=== PATIENT | female | born 1965 | race Caucasian/White ===

== ENCOUNTER → 2016-06-22 | Outpatient (CLI) | payer OTHER ==
[2016-06-22 08:14] LABS: BASO # 0.1 K/mm3 (0.0-0.2); BASO % 0.5 % (0.0-1.0); EOS # 0.2 K/mm3 (0.0-0.50); EOS % 1.5 % (0.0-3.0); LARGE UNSTAINED CELL # 0.3 K/mm3 (0.0-0.4); LARGE UNSTAINED CELL % 1.9 % (0.0-4.0); LYMPH # 4.2 K/mm3 (1.5-4.5); LYMPH % 30.5 % (24.0-44.0); MEAN CORPUSCULAR HEMOGLOBIN 30.6 pg (27.0-33.0); MEAN CORPUSCULAR HGB CONC 33.5 g/dl (32.0-36.5); MEAN CORPUSCULAR VOLUME 91.4 fl (80.0-96.0); MONO # 0.6 K/mm3 (0.0-0.8); MONO % 4.8 % (0.0-5.0); NEUTROPHILS # 7.9 K/mm3 (1.8-7.7); NEUTROPHILS % 60.8 % (36.0-66.0); PLATELET COUNT, AUTOMATED 425 k/mm3 (150-450); RED CELL DISTRIBUTION WIDTH 12.5 % (11.5-14.5)
[2016-06-22 08:51] LABS: ALBUMIN 3.9 GM/DL (3.2-5.2); ALBUMIN/GLOBULIN RATIO 1.18 (1.00-1.93); ALKALINE PHOSPHATASE 92 U/L (45-117); ALT/SGPT 52 U/L (12-78); ANION GAP 10 MEQ/L (8-16); AST/SGOT 19 U/L (15-37); BILIRUBIN,TOTAL 0.5 MG/DL (0.2-1.0); BLOOD UREA NITROGEN 17 MG/DL (7-18); CALCIUM LEVEL 9.1 MG/DL (8.5-10.1); CARBON DIOXIDE LEVEL 30 MEQ/L (21-32); CHLORIDE LEVEL 99 MEQ/L (98-107); CHOLESTEROL LEVEL 151 MG/DL (<200); CREATININE FOR GFR 0.84 MG/DL (0.55-1.02); DIGOXIN LEVEL 0.9 NG/ML (0.5-2.0); FREE T4 1.24 NG/DL (0.76-1.46); GLOMERULAR FILTRATION RATE > 60.0 (>51); GLUCOSE, FASTING 126 MG/DL (70-105); MAGNESIUM LEVEL 2.1 MG/DL (1.8-2.4); POTASSIUM SERUM 3.5 MEQ/L (3.5-5.1); SODIUM LEVEL 139 MEQ/L (136-145); TOTAL PROTEIN 7.2 GM/DL (6.4-8.2); TRIGLYCERIDES LEVEL 216 MG/DL (<150)
== END ==
LOC: M LAB 07:39
PROVIDERS: ATTEND Family Medicine
DX: E78.4 Other hyperlipidemia (principal); I48.0 Paroxysmal atrial fibrillation; N39.0 Urinary tract infection, site not specified

== ENCOUNTER → 2017-07-13 | Outpatient (CLI) | payer BC ==
[2017-07-13 03:22] LABS: HEMATOCRIT 41.2 % (36.0-47.0); HEMOGLOBIN 13.9 g/dl (12.0-15.5); MEAN CORPUSCULAR HEMOGLOBIN 30.5 pg (27.0-33.0); MEAN CORPUSCULAR HGB CONC 33.7 g/dl (32.0-36.5); MEAN CORPUSCULAR VOLUME 90.4 fl (80.0-96.0); PLATELET COUNT, AUTOMATED 484 10^3/uL (150-450); RED BLOOD COUNT 4.56 10^6/uL (4.00-5.40); RED CELL DISTRIBUTION WIDTH 12.6 % (11.5-14.5)
[2017-07-13 03:25] LABS: ADD MANUAL DIFFER YES; DIFF SLIDE NUMBER 87; POSITIVE DIFF POS FLAG; WHITE BLOOD COUNT 16.4 10^3/uL (4.0-10.0)
[2017-07-13 04:10] LABS: ATYPICAL LYMPH 4 % (0-5); EOSINOPHILS 2 % (0-5); LYMPHOCYTES 32 % (16-52); MONOCYTES 7 % (0-8); NEUTROPHILS 55 % (35-75); PLATELET ESTIMATE INCREASED (NORMAL)
[2017-07-13 04:17] LABS: ALBUMIN/GLOBULIN RATIO 1.11 (1.00-1.93); ALKALINE PHOSPHATASE 89 U/L (45-117); ALT/SGPT 57 U/L (12-78); ANION GAP 8 MEQ/L (8-16); AST/SGOT 28 U/L (7-37); BILIRUBIN,TOTAL 0.4 MG/DL (0.2-1.0); BLOOD UREA NITROGEN 18 MG/DL (7-18); CALCIUM LEVEL 9.4 MG/DL (8.5-10.1); CARBON DIOXIDE LEVEL 31 MEQ/L (21-32); CHLORIDE LEVEL 102 MEQ/L (98-107); CHOLESTEROL LEVEL 131 MG/DL (<200); CHOLESTEROL RISK RATIO 3.742 (<5); CREATININE FOR GFR 0.85 MG/DL (0.55-1.30); FREE T4 1.18 NG/DL (0.76-1.46); GLOMERULAR FILTRATION RATE > 60.0 (>51); GLUCOSE, FASTING 117 MG/DL (70-100); HDL CHOLESTEROL 35 MG/DL (>40); LDL CHOLESTEROL 66.2 MG/DL (<100); NON-HDL-C 96 MG/DL; POTASSIUM SERUM 3.5 MEQ/L (3.5-5.1); SODIUM LEVEL 141 MEQ/L (136-145); TOTAL PROTEIN 7.6 GM/DL (6.4-8.2); TRIGLYCERIDES LEVEL 149 MG/DL (<150)
== END ==
LOC: M LAB 01:40
DX: I11.9 Hypertensive heart disease without heart failure (principal)
CPT/HCPCS: 84443

== ENCOUNTER → 2018-07-10 | Outpatient (CLI) | payer BC ==
[2018-07-10 12:06] LABS: BASO # 0.1 10^3/uL (0.0-0.2); BASO % 0.5 % (0.0-1.0); EOS # 0.3 10^3/uL (0.0-0.50); EOS % 2.3 % (0.0-3.0); HEMATOCRIT 40.9 % (36.0-47.0); HEMOGLOBIN 13.5 g/dl (12.0-15.5); LYMPH # 3.9 10^3/uL (1.5-4.5); LYMPH % 29.3 % (24.0-44.0); MEAN CORPUSCULAR HEMOGLOBIN 30.3 pg (27.0-33.0); MEAN CORPUSCULAR VOLUME 91.9 fl (80.0-96.0); MONO # 0.8 10^3/uL (0.0-0.8); MONO % 5.6 % (0.0-5.0); NEUTROPHILS # 8.3 10^3/uL (1.8-7.7); NEUTROPHILS % 61.9 % (36.0-66.0); PLATELET COUNT, AUTOMATED 462 10^3/uL (150-450); RED BLOOD COUNT 4.45 10^6/uL (4.00-5.40); WHITE BLOOD COUNT 13.3 10^3/uL (4.0-10.0)
[2018-07-10 12:44] LABS: ALBUMIN 3.6 GM/DL (3.2-5.2); ALT/SGPT 48 U/L (12-78); BILIRUBIN,TOTAL 0.4 MG/DL (0.2-1.0); BLOOD UREA NITROGEN 15 MG/DL (7-18); CALCIUM LEVEL 9.1 MG/DL (8.5-10.1); CARBON DIOXIDE LEVEL 33 MEQ/L (21-32); CHLORIDE LEVEL 102 MEQ/L (98-107); CHOLESTEROL LEVEL 138 MG/DL (<200); CHOLESTEROL RISK RATIO 3.729 (<5); FREE T4 1.18 NG/DL (0.76-1.46); GLOMERULAR FILTRATION RATE > 60.0 (>51); GLUCOSE, FASTING 119 MG/DL (70-100); HDL CHOLESTEROL 37 MG/DL (>40); LDL CHOLESTEROL 62 MG/DL (<100); NON-HDL-C 101 MG/DL; SODIUM LEVEL 140 MEQ/L (136-145); TOTAL PROTEIN 7.2 GM/DL (6.4-8.2); TRIGLYCERIDES LEVEL 196 MG/DL (<150)
[2018-07-10 12:46] LABS: TOTAL 25(OH) VITAMIN D 37.1 NG/ML (30.0-100.0)
[2018-07-10 14:34] LABS: HEMOGLOBIN A1c 7.1 %
== END ==
LOC: M LAB 11:34
PROVIDERS: ATTEND Family Medicine
DX: E03.9 Hypothyroidism, unspecified (principal); E78.49 Other hyperlipidemia; E55.9 Vitamin D deficiency, unspecified

== ENCOUNTER → 2019-08-24 | Outpatient (CLI) | payer BC ==
[2019-08-24 06:45] LABS: BASO # 0.1 10^3/uL (0.0-0.2); BASO % 0.6 % (0.0-1.0); EOS # 0.2 10^3/uL (0.0-0.5); EOS % 1.9 % (0.0-3.0); HEMATOCRIT 40.9 % (36.0-47.0); HEMOGLOBIN 13.4 g/dl (12.0-15.5); LYMPH # 4.2 10^3/uL (1.5-5.0); LYMPH % 34.2 % (24.0-44.0); MEAN CORPUSCULAR HEMOGLOBIN 30.2 pg (27.0-33.0); MEAN CORPUSCULAR HGB CONC 32.8 g/dl (32.0-36.5); MEAN CORPUSCULAR VOLUME 92.1 fl (80.0-96.0); MONO # 0.9 10^3/uL (0.0-0.8); MONO % 6.8 % (0.0-5.0); NEUTROPHILS % 56.2 % (36.0-66.0); PLATELET COUNT, AUTOMATED 415 10^3/uL (150-450); RED BLOOD COUNT 4.44 10^6/uL (4.00-5.40); WHITE BLOOD COUNT 12.4 10^3/uL (4.0-10.0)
[2019-08-24 07:12] LABS: HEMOGLOBIN A1c 6.1 %
[2019-08-24 07:25] LABS: ALBUMIN 4.2 GM/DL (3.2-5.2); ALT/SGPT 45 U/L (12-78); BILIRUBIN,TOTAL 0.5 MG/DL (0.2-1.0); BLOOD UREA NITROGEN 16 MG/DL (7-18); CALCIUM LEVEL 9.5 MG/DL (8.5-10.1); CARBON DIOXIDE LEVEL 29 MEQ/L (21-32); CHLORIDE LEVEL 102 MEQ/L (98-107); CHOLESTEROL LEVEL 132 MG/DL (<200); CREATININE FOR GFR 0.76 MG/DL (0.55-1.30); FREE T4 1.18 NG/DL (0.76-1.46); GLOMERULAR FILTRATION RATE > 60.0 (>51); GLUCOSE, FASTING 87 MG/DL (70-100); HDL CHOLESTEROL 48 MG/DL (>40); LDL CHOLESTEROL 65 MG/DL (<100); NON-HDL-C 84 MG/DL; POTASSIUM SERUM 4.1 MEQ/L (3.5-5.1); SODIUM LEVEL 137 MEQ/L (136-145); TOTAL PROTEIN 7.4 GM/DL (6.4-8.2); TRIGLYCERIDES LEVEL 94 MG/DL (<150)
[2019-08-24 10:36] LABS: TOTAL 25(OH) VITAMIN D 49.7 NG/ML (30.0-100.0)
== END ==
LOC: M LAB 03:27
PROVIDERS: ATTEND Nurse Practitioner Family
DX: E78.49 Other hyperlipidemia (principal); I48.0 Paroxysmal atrial fibrillation; R73.9 Hyperglycemia, unspecified; E55.9 Vitamin D deficiency, unspecified; E03.9 Hypothyroidism, unspecified

== ENCOUNTER 2020-02-16 17:46 | Inpatient (IN) | payer BC ==
[~2020-02-16] VITALS: Ht 160 cm; Wt 81.0 kg
[2020-02-16] MEDS ORDERED: NS 1,000 ML IV ONE (18:30)
[2020-02-16] MEDS ORDERED: ONDANSETRON 4MG/2ML VIAL IV ONE ×2 (18:30→23:30)
[2020-02-16] MEDS ORDERED: BISO5TAB14 PO (18:31)
[2020-02-16] MEDS ORDERED: LEVO50TA5 PO (18:31)
[2020-02-16] MEDS ORDERED: ASPI81CH33 PO (18:31)
[2020-02-16] MEDS ORDERED: DIGO0.253 PO (18:31)
[2020-02-16] MEDS ORDERED: MIRA1POW3 PO ×2 (18:31→21:28)
[2020-02-16] MEDS ORDERED: ROSU20TA5 PO (18:31)
[2020-02-16] MEDS ORDERED: CRAN450T4 PO ×2 (18:32→21:28)
[2020-02-16 18:56] LABS: BASO % 0.3 % (0.0-1.0); EOS % 0.1 % (0.0-3.0); HEMATOCRIT 42.9 % (36.0-47.0); HEMOGLOBIN 14.1 g/dl (12.0-15.5); LYMPH # 1.6 10^3/uL (1.5-5.0); LYMPH % 10.8 % (24.0-44.0); MEAN CORPUSCULAR HEMOGLOBIN 29.9 pg (27.0-33.0); MEAN CORPUSCULAR HGB CONC 32.9 g/dl (32.0-36.5); MEAN CORPUSCULAR VOLUME 90.9 fl (80.0-96.0); MONO # 0.7 10^3/uL (0.0-0.8); MONO % 4.4 % (0.0-5.0); NEUTROPHILS # 12.5 10^3/uL (1.5-8.5); NEUTROPHILS % 83.9 % (36.0-66.0); PLATELET COUNT, AUTOMATED 462 10^3/uL (150-450); RED BLOOD COUNT 4.72 10^6/uL (4.00-5.40); WHITE BLOOD COUNT 14.8 10^3/uL (4.0-10.0)
[2020-02-16 19:25] LABS: BLOOD UREA NITROGEN 14 MG/DL (7-18); CALCIUM LEVEL 9.3 MG/DL (8.5-10.1); CARBON DIOXIDE LEVEL 30 MEQ/L (21-32); CHLORIDE LEVEL 102 MEQ/L (98-107); CREATININE FOR GFR 0.78 MG/DL (0.55-1.30); GLOMERULAR FILTRATION RATE > 60.0 (>51); GLUCOSE, FASTING 117 MG/DL (70-100); POTASSIUM SERUM 3.9 MEQ/L (3.5-5.1); SODIUM LEVEL 138 MEQ/L (136-145)
--- NOTE | 2020-02-16 19:48 | REP ---
INDICATION: constipated, nauseated, possible obstruction. COMPARISON: None. TECHNIQUE: Supine and upright views of the abdomen are presented. Two views. FINDINGS: Upright view shows differential air-fluid levels in dilated right, transverse and left colon segments. Supine radiograph shows gaseous distention to the level of the sigmoid colon. There is a small quantity of stool is visible in the rectum. There are 1 or 2 loops of air-filled small bowel in the right lower quadrant. Flank stripes and psoas margins appear intact. There is no evidence of free intraperitoneal air. No definite bowel wall edema. IMPRESSION: Distension of the colon with air and fluid consistent with left colonic obstruction possibly at the level of the sigmoid colon. There is a small quantity of stool in the rectum. Colonic ileus could have this appearance as well but is considered less likely.. No evidence of free air. <Electronically signed by Elias Sinha > 02/16/201944
[2020-02-16] MEDS ORDERED: MORPHINE 4 MG/ML 1ML VIAL/SYRINGE (J2270) IV ONE ×2 (20:15→23:15)
[2020-02-16] MEDS ORDERED: SIME1CAP PO (21:28)
[2020-02-16] MEDS ORDERED: ASPI-161 PO (21:28)
--- NOTE | 2020-02-16 21:45 | REPVR ---
PROCEDURE INFORMATION: Exam: CT Abdomen And Pelvis Without Contrast Exam date and time: 02/16/2020 9:03 PM Age: 55 years old Clinical indication: Abdominal pain; Additional info: Abd pain ? bowel obstruction TECHNIQUE: Imaging protocol: Computed tomography of the abdomen and pelvis without contrast. Radiation optimization: All CT scans at this facility use at least one of these dose optimization techniques: automated exposure control; mA and/or kV adjustment per patient size (includes targeted exams where dose is matched to clinical indication); or iterative reconstruction. COMPARISON: LA ABDOMEN (MIN 2 VIEW) 02/16/2020 7:33 PM FINDINGS: Liver: Normal. No mass. Gallbladder and bile ducts: Normal. No calcified stones. No ductal dilation. Pancreas: Normal. No ductal dilation. Spleen: Normal. No splenomegaly. Adrenal glands: Normal. No mass. Kidneys and ureters: Normal. No hydronephrosis. Stomach and bowel: There is a short-segment stricture in the sigmoid colon (image 115, series 201) measuring approximately 2 cm in length. The colon is very dilated with a large amount of fecal material to the level of the stricture. Mild colonic diverticulosis is present. Colon distal to the stricture is relatively decompressed. The small bowel is unremarkable. Appendix: No evidence of appendicitis. Intraperitoneal space: Unremarkable. No free air. No significant fluid collection. Vasculature: Unremarkable. No abdominal aortic aneurysm. Lymph nodes: Mild surrounding soft tissue edema around the sigmoid colon stricture with an associated ill-defined mass in the sigmoid mesentery measuring 1.5 cm and numerous small adjacent sigmoid mesenteric lymph nodes. Urinary bladder: Unremarkable as visualized. Reproductive: Unremarkable as visualized. Bones/joints: There are degenerative changes in the spine and pelvis. Soft tissues: Unremarkable. IMPRESSION: 1. 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 Small mass and mildly enlarged lymph nodes in the sigmoid mesocolon. 2. No signs of distant metastatic disease. 3. No other acute findings. Electronically signed by: Lex Chinchilla On 02/16/2020 21:45:30 PM
[2020-02-16] MEDS ORDERED: MORPHINE 4 MG/ML 1ML VIAL/SYRINGE (J2270) IV PRN (23:30)
[2020-02-16] MEDS ORDERED: MORPHINE 2 MG/ML 1ML VIAL (J2270) IV PRN (23:30)
[2020-02-16] MEDS: ONDANSETRON 4MG/2ML VIAL IV PRN (23:38)
[2020-02-16] MEDS: metroNIDAZOLE 500 MG in IV 1 EA IV SCH (23:45)
[2020-02-16] MEDS ORDERED: PILL CUTTER 1 EACH XX PRN (23:45)
[2020-02-16] MEDS: NS 1,000 ML IV SCH (23:45)
--- NOTE | 2020-02-16 23:51 | CR.PDOC ---
General Date of Consultation: Feb 16, 2020 Consultation Chief complaint: Who presented to the emergency room with complaints of abdominal pain History of present illness: Patient is a 55-year-old female with a PMHx of Tammy. nahomy (on ASA 81), HTN, Hypothyroidism, ZOE on CPAP, who presented to the emergency room with complaints of abdominal pain. Patient reported that on Saturday she had a small bowel movement and over the weekend developed constipation and difficulty passing gas. Patient had taken MiraLAX Saturday afternoon and had some ability to pass gas and had some resolution of her abdominal discomfort, however, Saturday had worsening of her abdominal pain. Patient reports the pain currently is at 2/10, occurring in the upper abdomen associated with nausea, no vomiting. Patient has had a small amount of gas passage today and a very small bowel movement earlier today. Patient denies any fevers but does report chills. Denies any urinary discomfort. Patient denies any chest pain, shortness of breath, cough or palpitations. Past Medical History: A. fib (on ASA 81), HTN, Hypothyroidism, ZOE on CPAP Past Surgical History: 2 Hysterectomy Allergies: See below Medications: See below Family History: - Reviewed and noncontributory Social History: - Denies the use of alcohol or illicit drugs; social alcohol use - Denies recent travel or sick contacts - Lives with significant other - Occupation; nursing patient registration supervisor Review of Systems: 10 point review of systems complete, all negative otherwise stated in HPI Physical exam: - Vitals: BP [136/72], HR [63], RR [16], Sat [97%RA], Temp [98.2F] - General: Lying in bed, Speaking in full sentences, AAOx3 - HEENT: NC, AT, PERRLA - CVS: RRR, +S1S2, - Murmurs / rubs / gallops - Lungs: Fair air entry bilaterally, No appreciable wheezing / rales / rhonchi - Abdomen: Soft, Non-distended, mild tenderness at upper quadrants bilaterally - Extremities: No lower extremity edema, No calf tenderness - Neuro: No focal motor or sensory deficit - Skin: No visible rashes Labs: See below Imaging: CXR 02/15: Negative portable chest. Abdomen XR 02/15: Distension of the colon with air and fluid consistent with left colonic obstruction possibly at the level of the sigmoid colon. There is a small quantity of stool in the rectum. Colonic ileus could have this appearance as well but is considered less likely.. No evidence of free air. EKG: See below Assessment and Plan: Abdominal pain / Nausea - likely 2/2 stricture at sigmoid colon - possibly 2/2 inflammation, possibly 2/2 [address] - [address] abdomen / pelvis 02/15: 1. 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 Small mass and mildly enlarged lymph nodes in the sigmoid mesocolon. 2. No signs of distant metastatic disease. 3. No other acute findings. - Patient has been admitted to the general surgery service - Patient has been started on antibiotics; ciprofloxacin and Flagyl - Patient will remain nothing by mouth Chronic A. fib - Patient is currently in sinus rhythm - Continue with rate and rhythm control with digoxin and bisoprolol - c/w ASA 81 HTN - BP well controlled - c/w Bisoprolol with hold parameters DLP - c/w Rosuvastatin Hypothyroidism - c/w Levothyroxine ZOE on CPAP - Allow home CPAP use while inpatient GI prophylaxis - c/w Protonix DVT prophylaxis - Will c/w TEDs/Sequentials Vital Signs/I&O Vital Signs Date Time Temp Pulse Resp B/P (MAP) Pulse Ox O2 Delivery O2 Flow Rate FiO2 02/16/20 23:16 16 02/16/20 21:31 98.2 63 136/72 (93) 97 Room Air Laboratory Data Labs 24H Laboratory Tests 2 02/16/20 18:40: Immature Granulocyte % (Auto) 0.5, Neutrophils (%) (Auto) 83.9H, Lymphocytes (%) (Auto) 10.8L, Monocytes (%) (Auto) 4.4, Eosinophils (%) (Auto) 0.1, Basophils (%) (Auto) 0.3, Neutrophils # (Auto) 12.5H, Lymphocytes # (Auto) 1.6, Monocytes # (Auto) 0.7, Eosinophils # (Auto) 0.0, Basophils # (Auto) 0.0, Nucleated Red Blood Cells % (auto) 0.0, Anion Gap 6L, Glomerular Filtration Rate > 60.0, Calcium Level 9.3, Digoxin Level 1.0 02/16/20 21:06: Coronavirus (COVID-19)(PCR) NEGATIVE CBC/BMP Laboratory Tests 02/16/20 18:40 Allergies Coded Allergies: No Known Allergies (Verified Allergy, Unknown, 02/16/20) Home Medications Scheduled Aspirin (Aspirin EC) 81 Mg Tablet.dr, 81 MG PO DAILY, (Reported) Bisoprolol Fumarate (Bisoprolol Fumarate) 5 Mg Tablet, 5 MG PO DAILY, (Reported) Cranberry Fruit (Cranberry) 450 Mg Tablet, 450 MG PO DAILY, (Reported) Digoxin (Digoxin) 250 Mcg Tablet, 250 MCG PO DAILY, (Reported) Levothyroxine Sodium (Levothyroxine Sodium) 50 Mcg Tablet, 50 MCG PO DAILY, (Reported) Rosuvastatin Calcium (Rosuvastatin Calcium) 20 Mg Tablet, 20 MG PO DAILY, (Reported) Scheduled PRN Polyethylene Glycol 3350 (Miralax) 17 Gm Powd.pack, 17 GM PO DAILY PRN for CONSTIPATION, (Reported) Simethicone (Simethicone) 125 Mg Capsule, 125 MG PO Q6H PRN for GAS PAIN, (Reported) LIZETH VALDAEZ MD Feb 16, 2020 23:51
[2020-02-17 00:20] VITALS: BP 144/81
[2020-02-17] MEDS: CIPROFLOXACIN 400 MG in IV 1 EA IV SCH ×2 (00:59→14:52)
[2020-02-17 02:00] VITALS: BP 142/79
[2020-02-17] MEDS: KETOROLAC 30 MG/ML 1ML VIAL IV PRN ×4 (02:35→21:03)
[2020-02-17 06:00] VITALS: BP 140/76
[2020-02-17] MEDS: NS 1,000 ML IV SCH ×3 (06:08→19:43)
[2020-02-17] MEDS: LEVOTHYROXINE 50MCG TABLET (0.05MG) PO SCH (06:08)
[2020-02-17 08:17] LABS: HEMATOCRIT 37.7 % (36.0-47.0); MEAN CORPUSCULAR HEMOGLOBIN 29.7 pg (27.0-33.0); MEAN CORPUSCULAR HGB CONC 32.4 g/dl (32.0-36.5); MEAN CORPUSCULAR VOLUME 91.7 fl (80.0-96.0); PLATELET COUNT, AUTOMATED 404 10^3/uL (150-450); RED BLOOD COUNT 4.11 10^6/uL (4.00-5.40); WHITE BLOOD COUNT 16.7 10^3/uL (4.0-10.0)
[2020-02-17 08:27] LABS: HEMOGLOBIN 12.2 g/dl (12.0-15.5)
[2020-02-17 08:32] LABS: BLOOD UREA NITROGEN 16 MG/DL (7-18); CALCIUM LEVEL 8.4 MG/DL (8.5-10.1); CARBON DIOXIDE LEVEL 26 MEQ/L (21-32); CHLORIDE LEVEL 108 MEQ/L (98-107); CREATININE FOR GFR 0.68 MG/DL (0.55-1.30); GLOMERULAR FILTRATION RATE > 60.0 (>51); GLUCOSE, FASTING 85 MG/DL (70-100); POTASSIUM SERUM 3.4 MEQ/L (3.5-5.1); SODIUM LEVEL 140 MEQ/L (136-145)
[2020-02-17] MEDS: PANTOPRAZOLE 40MG VIAL (C9113 PER 1) IV SCH (08:37)
[2020-02-17] MEDS: metroNIDAZOLE 500 MG in IV 1 EA IV SCH ×2 (08:38→17:14)
[2020-02-17] MEDS: ONDANSETRON 4MG/2ML VIAL IV PRN ×2 (08:38→13:26)
[2020-02-17] MEDS: SIMETHICONE 80 MG CHEW TAB PO SCH ×4 (09:34→19:43)
[2020-02-17] MEDS: bisoproloL fumarate 5 MG TAB PO SCH (09:34)
[2020-02-17] MEDS: ROSUVASTATIN 10 MG TAB (CRESTOR) PO SCH (09:34)
[2020-02-17] MEDS: DIGOXIN 0.25 MG TAB PO SCH (09:34)
[2020-02-17] MEDS: KCL 10MEQ/100ML SWI (KRUN) 10 MEQ in IV 1 EA IV SCH ×2 (10:00→10:23)
[2020-02-17 14:00] VITALS: BP 136/66
--- NOTE | 2020-02-17 14:17 | IPNPDOC ---
Date Seen The patient was seen on 02/17/20. Progress Note SUBJECTIVE: Potassium low at 3.4, stopped IV potassium due to pain in arm during infusion. Discussed case with Dr. Parks who will continue to watch. Had episode of nausea with vomiting x1, no increased abd pain, denies passing gas. Denies chest pain, shortness of breath, fevers or chills. OBJECTIVE: PHYSICAL EXAM: Vitals: Please see below General: Lying in bed, Speaking in full sentences, AAOx3 HEENT: NC, AT, PERRLA CVS: RRR, +S1S2, Murmurs / rubs / gallops Lungs: Fair air entry bilaterally, No appreciable wheezing / rales / rhonchi Abdomen: Soft, Non-distended, nontender on exam, BS + in 4 quadrants, no organomegaly Extremities: No lower extremity edema, No calf tenderness Neuro: No focal motor or sensory deficit Skin: No visible rashes, normal skin turgor Psych: mood and affect appropriate LABORATORY: Please see below IMAGING: CT abd/pelvis 02/16/20: 1. 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 Small mass and mildly enlarged lymph nodes in the sigmoid mesocolon. 2. No signs of distant metastatic disease. 3. No other acute findings. ASSESSMENT/PLAN: Abdominal pain likely 2/2 stricture at sigmoid colon possibly 2/2 inflammation vs. 2/2 malignancy - [address] abdomen / pelvis 02/15: above - C/w IVFs at 150 cc/hr, IV ciprofloxacin and Flagyl, pain regimen, NPO - Surgery primary service Hypokalemia, acute likely 2/2 to decreased PO intake - Ordered 20 mEq IV to be administered but could not tolerate more than one bag - F/u K level in AM. - Replace PO if needing additional supplementation Chronic A. fib - Patient is currently in sinus rhythm - Continue with rate and rhythm control with digoxin and bisoprolol - c/w ASA 81 HTN - BP 140-150's while on IVFs at 150 cc/hr - Monitor closely - c/w Bisoprolol with hold parameters DLP - c/w Rosuvastatin Hypothyroidism - c/w Levothyroxine ZOE on CPAP - Allow home CPAP use while inpatient GI prophylaxis - c/w Protonix DVT prophylaxis - Will c/w TEDs/Sequentials VS, I&O, 24H, Fishbone Vital Signs/I&O Vital Signs Date Time Temp Pulse Resp B/P (MAP) Pulse Ox O2 Delivery O2 Flow Rate FiO2 02/17/20 09:34 75 02/17/20 09:34 140/76 02/17/20 06:00 99.0 18 96 Room Air I&O- Last 24 Hours up to 6 AM 02/17/20 06:00 Intake Total 1255 ml Output Total 250 ml Balance 1005 ml Laboratory Data 24H LABS Laboratory Tests 2 02/16/20 18:40: Immature Granulocyte % (Auto) 0.5, Neutrophils (%) (Auto) 83.9H, Lymphocytes (%) (Auto) 10.8L, Monocytes (%) (Auto) 4.4, Eosinophils (%) (Auto) 0.1, Basophils (%) (Auto) 0.3, Neutrophils # (Auto) 12.5H, Lymphocytes # (Auto) 1.6, Monocytes # (Auto) 0.7, Eosinophils # (Auto) 0.0, Basophils # (Auto) 0.0, Nucleated Red Blood Cells % (auto) 0.0, Anion Gap 6L, Glomerular Filtration Rate > 60.0, Calcium Level 9.3, Carcinoembryonic Antigen < 0.5, Digoxin Level 1.0 02/16/20 21:06: Coronavirus (COVID-19)(PCR) NEGATIVE 02/17/20 07:42: Nucleated Red Blood Cells % (auto) 0.0, Anion Gap 6L, Glomerular Filtration Rate > 60.0, Calcium Level 8.4L CBC/BMP Laboratory Tests 02/16/20 18:40 02/17/20 07:42 Current Medications Current Medications Medications (Trade) Dose Ordered Sig/Jenny Route PRN Reason Start Time Stop Time Status Last Admin Dose Admin Bisoprolol Fumarate (Zebeta) 5 mg DAILY PO 02/17/20 09:00 02/17/20 09:34 Ciprofloxacin 400 mg/IV Miscellaneous Supplies 200 ml @ 200 mls/hr Q12H IV 02/17/20 02:00 02/17/20 00:59 Digoxin (Lanoxin) 0.25 mg DAILY PO 02/17/20 09:00 02/17/20 09:34 Home Med (Med Rec Complete!) ASDIRECTED XX 02/16/20 21:30 02/16/20 21:35 DC Ketorolac Tromethamine (ToRADol) 30 mg Q6HP PRN IV MILD/MODERATE PAIN (PS 1-7) 02/16/20 23:30 02/21/20 23:29 02/17/20 08:38 Levothyroxine Sodium (Synthroid) 50 mcg DAILY@0600 PO 02/17/20 06:00 02/17/20 06:08 Metronidazole 500 mg/IV Miscellaneous Supplies 100 ml @ 100 mls/hr Q8H IV 02/17/20 01:00 02/17/20 08:38 Morphine Sulfate (Morphine Sulfate Inj) 2 mg Q4H PRN IV MILD/MODERATE PAIN (PS 1-7) 02/16/20 23:30 Morphine Sulfate (Morphine Sulfate Inj) 4 mg Q4H PRN IV SEVERE PAIN (PS 8-10) 02/16/20 23:30 Ondansetron HCl (ZOFRAN INJection) 4 mg Q6HP PRN IV NAUSEA OR VOMITING 02/16/20 23:30 02/17/20 13:26 Pantoprazole Sodium (Protonix) 40 mg DAILY IV 02/17/20 09:00 02/17/20 08:37 Potassium Chloride 10 meq/ IV Miscellaneous Supplies 100 ml @ 100 mls/hr Q1H IV 02/17/20 09:00 02/17/20 10:59 DC 02/17/20 10:23 Rosuvastatin Calcium (Crestor) 20 mg DAILY PO 02/17/20 09:00 02/17/20 09:34 Simethicone (Mylicon) 120 mg QID PO 02/17/20 09:00 02/17/20 09:34 Sodium Chloride 1,000 ml @ 150 mls/hr Q6H40M IV 02/16/20 23:22 02/17/20 06:08 Allergies Coded Allergies: No Known Allergies (Verified Allergy, Unknown, 02/16/20) Ruthie Escobar MD Feb 17, 2020 14:17
[2020-02-17] MEDS ORDERED: ONDANSETRON 4MG/2ML VIAL IV PRN (15:30)
[2020-02-17] MEDS ORDERED: METOCLOPRAMIDE INJ 10MG/2ML VIAL (J2765 PER 1) IV ONE (19:30)
--- NOTE | 2020-02-17 20:49 | IPN ---
PROGRESS NOTE DATE: 02/17/2020 SUBJECTIVE: The patient states that she is feeling much better today. Essentially was feeling great at about 6:00 in the morning and then she noticed about a couple hours later she just had some nausea and vomiting after she had some fluids but overall her abdominal distention she says is much better. Her abdominal pain is relatively almost resolved. She has had a white count that has bumped up a little bit, 16.7. She has had a T-max of 99. PHYSICAL EXAMINATION: LUNGS: Clear anteriorly. HEART: Regular. ABDOMEN: Much less distended and essentially really does not have any tenderness. Mild discomfort with some deep palpation in the left lower quadrant suprapubic area but this is significantly improved from yesterday/last night. IMPRESSION AND PLAN: The patient overall clinically has made some significant improvements and I am hoping that this is a progression of improvement that will allow us to proceed with either a bowel prep or a colonoscopy or bowel prep for a colectomy at some point in the future. The concern is the elevated white count although this may actually support more of an infectious etiology. If this truly was an elevated white count with a concerning bowel distention, etc., I would expect to see that on her physical exam and her clinical presentation but that is not the case, and thus is much more supportive of a possible infectious etiology. In any case, she also understands that there still is a possibility that there is a malignancy within her sigmoid colon and that will need to continue our workup during this admission. However, given her benign abdominal exam, I still feel that it is reasonable to keep her n.p.o., IV fluids and antibiotics for now, and we will see how we do over the next 24 hours, if she develops some resolution of this abdominal pain, and this bowel obstruction/starts having bowel movements, then I anticipate we may be able to progress with the plan as dictated above. The second issue is nausea. She has had some nausea and I am wondering if this is related to her Flagyl that we have started her on and we may need to modify her antibiotic regimen. Given that she does not have significant abdominal distention, I wonder if this is not secondary to obstruction per se as it more likely is related to medications per se. In any case, we will see how she does over the day and plan on reevaluation tomorrow. If she is having progressive abdominal distention, we will have a follow up x-ray in the morning.
--- NOTE | 2020-02-17 21:59 | HPE ---
HISTORY AND PHYSICAL DATE OF ADMISSION: 02/16/2020 Patient presents with a 5 day history of progressive abdominal distention and essentially was admitted to the emergency room for this progressive abdominal distention. She has been taking some MiraLax to see if that did not make a significant improvement and really has not had any bowel movements associated with this. She has had some nausea with occasional vomiting and from her standpoint is here for additional evaluation. On her workup in the emergency room, x-rays / CT scan revealed a large bowel obstruction with transition within the sigmoid colon. The concern with the presentation was that there was some thickening in the sigmoid colon and the question was concerning a malignant appearing stricture in the sigmoid colon, some mildly enlarged lymph nodes in the sigmoid mesocolon. She has not had a previous colonoscopy, has not any CEAs or Cologuards. She has not had any bright red blood per rectum and she has been having some problems with constipation over the last 6-8 months. PAST MEDICAL HISTORY: Significant for history of section times two, history of hysterectomy, history of atrial fibrillation, history of sleep apnea, history of hypothyroidism, history of hypertension. MEDICATIONS: Include: - aspirin - bisoprolol - cranberry fruit - digoxin - Synthroid - rosuvastatin and more recently: - polyethylene glycol/MiraLax - simethicone PHYSICAL EXAMINATION: Reveals a 55-year-old female who looks stated age. HEENT is unremarkable. Neck is supple without adenopathy. Lungs are clear to auscultation anteriorly. Heart is irregular with multiple irregular beats. Abdomen is distended, mildly tympanitic across the abdomen. Mild discomfort in the left lower quadrant in the suprapubic area without significant guarding, rebound, or peritoneal signs. Extremities are warm and well-perfused. IMPRESSION/PLAN: Patient does have an elevated white count and at this point I do see the thickening in the sigmoid colon that they are concerned about, however this also could be a benign etiology instead of malignant, and benign etiology most likely being diverticulitis. With the elevated white count, I do feel that it is very reasonable to start her on IV antibiotics, nothing by mouth, IV fluids, and we will see how she does over the ensuing hours. If we have increasing distention, she may need operative intervention. I discussed with her at length that our preference is that if we can get her to decompress her colon and actually tolerate a bowel prep, proceeding with a laparoscopic sigmoid colectomy would be the preference. However, if she progressively distends up or has a concerning abdominal exam, that we may need to proceed with a colectomy and colostomy. She understands this and is interested in avoiding a colostomy as much as possible and at this point does not seem uncomfortable, states that the pain is not severe except when she gets some crampy abdominal pain and this resolves relatively soon. She states since being nothing by mouth she does not feel anymore distended this afternoon than she did earlier today and thus we will see how she does with this and her overall abdominal discomfort, pain, etc.
[2020-02-17 22:00] VITALS: BP 137/66
[2020-02-18] MEDS: metroNIDAZOLE 500 MG in IV 1 EA IV SCH ×2 (01:13→08:53)
[2020-02-18] MEDS: ONDANSETRON 4MG/2ML VIAL IV PRN ×5 (01:13→19:57)
[2020-02-18 02:00] VITALS: BP 144/69
[2020-02-18] MEDS: CIPROFLOXACIN 400 MG in IV 1 EA IV SCH ×2 (02:46→13:21)
[2020-02-18] MEDS: NS 1,000 ML IV SCH ×5 (02:46→19:58)
[2020-02-18] MEDS: KETOROLAC 30 MG/ML 1ML VIAL IV PRN ×4 (03:10→19:57)
[2020-02-18] MEDS: LEVOTHYROXINE 50MCG TABLET (0.05MG) PO SCH (05:46)
[2020-02-18 05:50] LABS: HEMATOCRIT 36.8 % (36.0-47.0); HEMOGLOBIN 12.1 g/dl (12.0-15.5); MEAN CORPUSCULAR HEMOGLOBIN 30.4 pg (27.0-33.0); MEAN CORPUSCULAR HGB CONC 32.9 g/dl (32.0-36.5); MEAN CORPUSCULAR VOLUME 92.5 fl (80.0-96.0); PLATELET COUNT, AUTOMATED 360 10^3/uL (150-450); RED BLOOD COUNT 3.98 10^6/uL (4.00-5.40); WHITE BLOOD COUNT 13.6 10^3/uL (4.0-10.0)
[2020-02-18 06:00] VITALS: BP 143/69
[2020-02-18 06:24] LABS: BLOOD UREA NITROGEN 20 MG/DL (7-18); CALCIUM LEVEL 8.9 MG/DL (8.5-10.1); CARBON DIOXIDE LEVEL 26 MEQ/L (21-32); CHLORIDE LEVEL 109 MEQ/L (98-107); CREATININE FOR GFR 0.77 MG/DL (0.55-1.30); GLOMERULAR FILTRATION RATE > 60.0 (>51); GLUCOSE, FASTING 94 MG/DL (70-100); POTASSIUM SERUM 4.1 MEQ/L (3.5-5.1); SODIUM LEVEL 142 MEQ/L (136-145)
[2020-02-18] MEDS: PANTOPRAZOLE 40MG VIAL (C9113 PER 1) IV SCH (08:53)
[2020-02-18] MEDS: bisoproloL fumarate 5 MG TAB PO SCH ×2 (09:00→12:41)
[2020-02-18] MEDS: DIGOXIN 0.25 MG TAB PO SCH ×2 (09:00→12:42)
[2020-02-18] MEDS: ROSUVASTATIN 10 MG TAB (CRESTOR) PO SCH ×2 (09:00→12:41)
[2020-02-18] MEDS: PIPERACILLIN/TAZOBACTAM SOD 3.375 GM in D5W MINI-BAG PLUS 50 ML IV SCH ×3 (10:15→22:22)
[2020-02-18] MEDS ORDERED: METOCLOPRAMIDE INJ 10MG/2ML VIAL (J2765 PER 1) IV ONE (11:30)
--- NOTE | 2020-02-18 12:47 | IPNPDOC ---
Date Seen The patient was seen on 02/18/20. Progress Note SUBJECTIVE: WBC improving. Nausea persists intermittently, given dose of reglan and incr frequency of zofran. One small BM this AM, still has some "abdominal bloating". Denies abdominal pain, chest pain, shortness of breath, fevers or chills. OBJECTIVE: PHYSICAL EXAM: Vitals: Please see below General: Lying in bed, Speaking in full sentences, AAOx3 HEENT: NC, AT, PERRLA CVS: RRR, +S1S2, Murmurs / rubs / gallops Lungs: Fair air entry bilaterally, No appreciable wheezing / rales / rhonchi Abdomen: Soft, Non-distended, nontender on exam, BS + in 4 quadrants, no organomegaly Extremities: No lower extremity edema, No calf tenderness Neuro: No focal motor or sensory deficit Skin: No visible rashes, normal skin turgor Psych: mood and affect appropriate LABORATORY: Please see below IMAGING: CT abd/pelvis 02/16/20: 1. 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 Small mass and mildly enlarged lymph nodes in the sigmoid mesocolon. 2. No signs of distant metastatic disease. 3. No other acute findings. ASSESSMENT/PLAN: Abdominal pain likely 2/2 stricture at sigmoid colon possibly 2/2 inflammation vs. 2/2 malignancy - One small BM this AM - CT abdomen / pelvis 02/15: above - C/w IVFs at 150 cc/hr, IV ciprofloxacin and zosyn, pain regimen, NPO - Surgery primary service Nausea/vomiting likely 2/2 to stricture at sigmoid colon vs. medication induced -S/p reglan and zofran administration -Flagyl stopped -C/w NPO status, antiemetics, IVFs Chronic A. fib - Patient is currently in sinus rhythm - Continue with rate and rhythm control with digoxin and bisoprolol - c/w ASA 81 HTN - BP 140's systolic while on IVFs at 150 cc/hr - Monitor closely - c/w Bisoprolol with hold parameters DLP - c/w Rosuvastatin Hypothyroidism - c/w Levothyroxine ZOE on CPAP - Allow home CPAP use while inpatient GI prophylaxis - c/w Protonix DVT prophylaxis - TEDs/Sequentials Resolved issues: Hypokalemia, acute likely 2/2 to decreased PO intake VS, I&O, 24H, Judith Vital Signs/I&O Vital Signs Date Time Temp Pulse Resp B/P (MAP) Pulse Ox O2 Delivery O2 Flow Rate FiO2 02/18/20 06:00 98.2 69 18 143/69 (93) 95 Room Air I&O- Last 24 Hours up to 6 AM 02/18/20 05:59 Intake Total 2300 ml Output Total 200 ml Balance 2100 ml Laboratory Data 24H LABS Laboratory Tests 2 02/18/20 05:15: Nucleated Red Blood Cells % (auto) 0.0, Anion Gap 7L, Glomerular Filtration Rate > 60.0, Calcium Level 8.9 CBC/BMP Laboratory Tests 02/18/20 05:15 Current Medications Current Medications Medications (Trade) Dose Ordered Sig/Jenny Route PRN Reason Start Time Stop Time Status Last Admin Dose Admin Bisoprolol Fumarate (Zebeta) 5 mg DAILY PO 02/17/20 09:00 02/17/20 09:34 Ciprofloxacin 400 mg/IV Miscellaneous Supplies 200 ml @ 200 mls/hr Q12H IV 02/17/20 02:00 02/18/20 02:46 Digoxin (Lanoxin) 0.25 mg DAILY PO 02/17/20 09:00 02/17/20 09:34 Home Med (Med Rec Complete!) ASDIRECTED XX 02/16/20 21:30 02/16/20 21:35 DC Ketorolac Tromethamine (ToRADol) 30 mg Q6HP PRN IV MILD/MODERATE PAIN (PS 1-7) 02/16/20 23:30 02/21/20 23:29 02/18/20 08:54 Levothyroxine Sodium (Synthroid) 50 mcg DAILY@0600 PO 02/17/20 06:00 02/18/20 05:46 Metronidazole 500 mg/IV Miscellaneous Supplies 100 ml @ 100 mls/hr Q8H IV 02/17/20 01:00 02/18/20 09:41 DC 02/18/20 08:53 Morphine Sulfate (Morphine Sulfate Inj) 2 mg Q4H PRN IV MILD/MODERATE PAIN (PS 1-7) 02/16/20 23:30 Morphine Sulfate (Morphine Sulfate Inj) 4 mg Q4H PRN IV SEVERE PAIN (PS 8-10) 02/16/20 23:30 Ondansetron HCl (ZOFRAN INJection) 4 mg Q4HP PRN IV NAUSEA OR VOMITING 02/17/20 19:30 02/18/20 10:15 Ondansetron HCl (ZOFRAN INJection) 4 mg Q6HP PRN IV NAUSEA OR VOMITING 02/16/20 23:30 02/17/20 15:27 DC 02/17/20 13:26 Ondansetron HCl (ZOFRAN INJection) 8 mg Q6HP PRN IV NAUSEA OR VOMITING 02/17/20 15:30 02/17/20 19:19 DC 02/17/20 17:14 Pantoprazole Sodium (Protonix) 40 mg DAILY IV 02/17/20 09:00 02/18/20 08:53 Piperacillin Sod/ Tazobactam Sod 3.375 gm/Dextrose 50 ml @ 50 mls/hr Q6H IV 02/18/20 11:00 02/18/20 10:15 Potassium Chloride 10 meq/ IV Miscellaneous Supplies 100 ml @ 100 mls/hr Q1H IV 02/17/20 09:00 02/17/20 10:59 DC 02/17/20 10:23 Rosuvastatin Calcium (Crestor) 20 mg DAILY PO 02/17/20 09:00 02/17/20 09:34 Simethicone (Mylicon) 120 mg QID PO 02/17/20 09:00 02/18/20 08:34 DC 02/17/20 09:34 Sodium Chloride 1,000 ml @ 250 mls/hr Q4H IV 02/16/20 23:22 02/18/20 02:46 Allergies Coded Allergies: No Known Allergies (Verified Allergy, Unknown, 02/16/20) Ruthie Escobar MD Feb 18, 2020 12:47
[2020-02-18 14:52] VITALS: BP 124/67
--- NOTE | 2020-02-18 19:38 | IPN ---
PROGRESS NOTE DATE: 02/18/2020 SUBJECTIVE: The patient had a small bowel movement this morning, had a little bit of flatus with that as well. She states that she has had some nausea that has still been problematic for her. She has had no fevers. Her white count is down from yesterday, down to 13.6 from 16.7 yesterday. She is complaining of some bloating but does not have any pain at this time. Her abdomen is softly distended. She has no tenderness, no guarding, no rebound. IMPRESSION AND PLAN: The patient has evidence of large bowel obstruction. 1. Given her elevated white count and improvement with antibiotics clinically, I do feel that we will continue this course for now and I do have a question whether this is more likely to be an infectious process instead a malignant process given the CAT scan suggestion. 2. CEA was normal as well, thus we will continue her with n.p.o. except sips of clears, and will start her on some stool softeners as well and continue the antibiotics, but I do think that we are going to have to stop the Flagyl. It is the most likely etiology for her nausea and reevaluate her with labs, etc. tomorrow morning. 3. If she is not having significant improvement/resolution of her symptoms, we may need to repeat x-rays/CAT scans, depending on how she is doing. 4. Maybe an x-ray first and we will go from there.
[2020-02-18] MEDS: SENNA 8.6 MG TAB (SENOKOT) PO SCH (19:58)
[2020-02-18] MEDS: DOCUSATE SODIUM 100MG CAPSULE PO SCH (19:58)
[2020-02-18 20:00] VITALS: BP 134/70
[2020-02-19] VITALS (8 sets, daily range): BP systolic 124–162; BP diastolic 63–78
[2020-02-19] MEDS: CIPROFLOXACIN 400 MG in IV 1 EA IV SCH ×2 (01:03→13:43)
[2020-02-19] MEDS: KETOROLAC 30 MG/ML 1ML VIAL IV PRN ×3 (02:00→18:33)
[2020-02-19] MEDS: NS 1,000 ML IV SCH ×4 (02:12→22:39)
[2020-02-19] MEDS: ONDANSETRON 4MG/2ML VIAL IV PRN ×2 (03:57→09:33)
[2020-02-19] MEDS: PIPERACILLIN/TAZOBACTAM SOD 3.375 GM in D5W MINI-BAG PLUS 50 ML IV SCH ×4 (03:57→22:38)
[2020-02-19] MEDS: LEVOTHYROXINE 50MCG TABLET (0.05MG) PO SCH (05:53)
[2020-02-19 06:47] LABS: HEMATOCRIT 38.8 % (36.0-47.0); HEMOGLOBIN 12.8 g/dl (12.0-15.5); MEAN CORPUSCULAR HEMOGLOBIN 30.6 pg (27.0-33.0); MEAN CORPUSCULAR VOLUME 92.8 fl (80.0-96.0); PLATELET COUNT, AUTOMATED 393 10^3/uL (150-450); RED BLOOD COUNT 4.18 10^6/uL (4.00-5.40); WHITE BLOOD COUNT 15.5 10^3/uL (4.0-10.0)
[2020-02-19 07:12] LABS: BLOOD UREA NITROGEN 18 MG/DL (7-18); CALCIUM LEVEL 8.8 MG/DL (8.5-10.1); CARBON DIOXIDE LEVEL 25 MEQ/L (21-32); CHLORIDE LEVEL 108 MEQ/L (98-107); CREATININE FOR GFR 0.73 MG/DL (0.55-1.30); GLOMERULAR FILTRATION RATE > 60.0 (>51); GLUCOSE, FASTING 89 MG/DL (70-100); POTASSIUM SERUM 3.4 MEQ/L (3.5-5.1); SODIUM LEVEL 140 MEQ/L (136-145)
--- NOTE | 2020-02-19 07:43 | ECGEPIP ---
[facility] - ED Test Date: 2020-02-16 Pat Name: BARBIE DELA CRUZ Department: Room: [place] [address] Gender: Female Emergency Department Clinician: GASTON : 1965 Requested By: CANDIDO BUNN PA-C. Order Number: [id number] Reading MD: Alem Vega Measurements Intervals [place] Rate: 63 P: 63 FL: 158 QRS: 60 QRSD: 92 T: 65 QT: 402 QTc: 412 Interpretive Statements SINUS RHYTHM NSTTW abnormalities No prior Electronically Signed on 02-19-2020 7:43:17 EST by Alem Vega
[2020-02-19] MEDS: ROSUVASTATIN 10 MG TAB (CRESTOR) PO SCH (09:00)
[2020-02-19] MEDS: DIGOXIN 0.25 MG TAB PO SCH (09:00)
[2020-02-19] MEDS: DOCUSATE SODIUM 100MG CAPSULE PO SCH ×2 (09:00→21:37)
[2020-02-19] MEDS: bisoproloL fumarate 5 MG TAB PO SCH (09:00)
[2020-02-19] MEDS: SENNA 8.6 MG TAB (SENOKOT) PO SCH ×2 (09:00→21:37)
[2020-02-19] MEDS: PANTOPRAZOLE 40MG VIAL (C9113 PER 1) IV SCH (09:22)
[2020-02-19] MEDS ORDERED: POTASSIUM CHLORIDE 10 MEQ SR TABLET PO ONE (09:30)
[2020-02-19] MEDS ORDERED: BUPIVACAINE LIPOSOME/PF 1.3% 20ML VIAL (13.3MG/ML)(EXPAREL)(C9290 PER1MG) As Ordered ONE (10:50)
[2020-02-19] MEDS ORDERED: BUPIVACAINE HCL 0.5% 10ML VIAL As Ordered ONE (10:50)
[2020-02-19] MEDS ORDERED: GLUCAGON INJ 1MG VIAL As Ordered ONE (10:50)
[2020-02-19] MEDS ORDERED: SCOPOLAMINE 1MG TRANSDERMAL PATCH As Ordered ONE (11:22)
[2020-02-19] MEDS ORDERED: SCOPOLAMINE 1MG TRANSDERMAL PATCH TOP ONE (11:30)
[2020-02-19] MEDS ORDERED: ACETAMINOPHEN 1000MG 100ML IV BTL (OFIRMEV) (J0131 PER 10MG) As Ordered ONE (11:51)
[2020-02-19] MEDS ORDERED: SUGAMMADEX SODIUM 500 MG/5 ML VIAL (BRIDION) As Ordered ONE (12:08)
[2020-02-19] MEDS ORDERED: ONDANSETRON 4MG/2ML VIAL As Ordered ONE (12:09)
[2020-02-19] MEDS ORDERED: fentaNYL 100 MCG/2 ML INJECTION (J3010) As Ordered ONE ×2 (12:09→13:29)
[2020-02-19] MEDS ORDERED: KETAMINE HCL 200 MG/20 ML VIAL As Ordered ONE ×2 (12:09→12:43)
[2020-02-19] MEDS ORDERED: dexameTHASONE 4 MG/ML 1ML VIAL (J1100 PER 1MG) As Ordered ONE (12:09)
[2020-02-19] MEDS ORDERED: ROCURONIUM BROMIDE 50 MG/5 ML VIAL As Ordered ONE ×2 (12:09→12:31)
[2020-02-19] MEDS ORDERED: MIDAZOLAM INJ 2MG/2ML VIAL (J2250 PER 1MG) As Ordered ONE (12:09)
[2020-02-19] MEDS ORDERED: LIDOCAINE 2% 100MG/5ML SDV (FOR ANES.) As Ordered ONE (12:09)
[2020-02-19] MEDS ORDERED: propofoL 200 MG/20 ML VIAL As Ordered ONE (12:09)
[2020-02-19] MEDS ORDERED: CIPROFLOXACIN/D5W 400 MG/200 ML BAG (J0744) As Ordered ONE (13:41)
[2020-02-19] MEDS ORDERED: KETOROLAC 60MG 2ML VIAL As Ordered ONE (14:02)
[2020-02-19] MEDS ORDERED: METOCLOPRAMIDE INJ 10MG/2ML VIAL (J2765 PER 1) As Ordered ONE (14:11)
[2020-02-19] MEDS ORDERED: BUPIVACAINE HCL 0.25% 10ML VIAL As Ordered ONE (14:21)
[2020-02-19] MEDS ORDERED: ePHEDrine SULFATE 25 MG/5 ML(5MG/ML) SYRINGE As Ordered ONE (14:32)
[2020-02-19] MEDS ORDERED: SUCCINYLCHOLINE 100 MG/5 ML SYRINGE (J0330) As Ordered ONE (14:32)
[2020-02-19] MEDS ORDERED: NS 1,000 ML IV SCH (14:44)
[2020-02-19] MEDS ORDERED: MORPHINE 1MG/ML IN 0.9% NACL 100ML IV BAG IV PRN (14:45)
[2020-02-19] MEDS ORDERED: ONDANSETRON 4MG/2ML VIAL IV PRN ×2 (14:45→15:15)
[2020-02-19] MEDS ORDERED: EPIDURAL/PCA KEYS XX PRN (14:45)
[2020-02-19] MEDS ORDERED: diphenhydrAMINE 50MG/ML VIAL (J1200) IV PRN (14:45)
[2020-02-19] MEDS ORDERED: NALOXONE INJ 0.4MG/1ML VIAL (J2310 PER 1MG) IV PRN (14:45)
[2020-02-19] MEDS ORDERED: MORPHINE 1MG/ML IN 0.9% NACL 100ML IV BAG As Ordered ONE (15:00)
[2020-02-19] MEDS ORDERED: fentaNYL 100 MCG/2 ML INJECTION (J3010) IV PRN (15:15)
[2020-02-19] MEDS ORDERED: LR 1,000 ML IV SCH (15:15)
[2020-02-19] MEDS ORDERED: HYDROMORPHONE HCL 0.5 MG/ 0.5 ML SYRINGE (J1170 PER 1) IV PRN (15:15)
[2020-02-19] MEDS ORDERED: oxyCODONE 5MG TAB PO PRN (15:15)
--- NOTE | 2020-02-19 20:34 | IPNPDOC ---
Date Seen The patient was seen on 02/19/20. Progress Note SUBJECTIVE: Incr WBC, n/v, abd distention overnight. NG tube placed. AbXR showed persistent obstruction. OR today. Denies abdominal pain, chest pain, shortness of breath, fevers or chills. OBJECTIVE: PHYSICAL EXAM: Vitals: Please see below General: Lying in bed, Speaking in full sentences, AAOx3 HEENT: NC, AT, PERRLA, NG tube secured in place CVS: RRR, +S1S2, Murmurs / rubs / gallops Lungs: Fair air entry bilaterally, No appreciable wheezing / rales / rhonchi Abdomen: Soft, distended abd, nontender on exam, BS + in 4 quadrants, no organomegaly Extremities: No lower extremity edema, No calf tenderness Neuro: No focal motor or sensory deficit Skin: No visible rashes, normal skin turgor Psych: mood and affect appropriate LABORATORY: Please see below IMAGING: ABdXR 02/19/20: pending official reading CT abd/pelvis 02/16/20: 1. 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 Small mass and mildly enlarged lymph nodes in the sigmoid mesocolon. 2. No signs of distant metastatic disease. 3. No other acute findings. ASSESSMENT/PLAN: Abdominal pain likely 2/2 stricture at sigmoid colon possibly 2/2 inflammation vs. 2/2 malignancy - Continued obstructive picture: not passing gas, incr abd distention, incr n/v with NG placed - OR today per surgery - C/w IVFs , IV ciprofloxacin and zosyn, pain regimen, NPO - Surgery primary service Nausea/vomiting likely 2/2 to stricture at sigmoid colon vs. medication induced -C/w NPO status, antiemetics, IVFs Chronic A. fib - Patient is currently in sinus rhythm - HOlding ASA and other PO meds for now (digoxin and bisoprolol) HTN - BP 140's systolic while on IVFs - Holding Bisoprolol with hold parameters DLP - Holding Rosuvastatin Hypothyroidism - Holding Levothyroxine ZOE on CPAP - Allow home CPAP use while inpatient GI prophylaxis - c/w Protonix DVT prophylaxis - TEDs/Sequentials Resolved issues: Hypokalemia, acute likely 2/2 to decreased PO intake VS, I&O, 24H, Fishbone Vital Signs/I&O Vital Signs Date Time Temp Pulse Resp B/P (MAP) Pulse Ox O2 Delivery O2 Flow Rate FiO2 02/19/20 18:13 98.4 72 17 127/71 (89) 96 Nasal Cannula 3.0 I&O- Last 24 Hours up to 6 AM 02/19/20 06:00 Intake Total 500 ml Output Total 700 ml Balance -200 ml Laboratory Data 24H LABS Laboratory Tests 2 02/19/20 06:06: Nucleated Red Blood Cells % (auto) 0.0, Anion Gap 7L, Glomerular Filtration Rate > 60.0, Calcium Level 8.8 CBC/BMP Laboratory Tests 02/19/20 06:06 Current Medications Current Medications Medications (Trade) Dose Ordered Sig/Jenny Route PRN Reason Start Time Stop Time Status Last Admin Dose Admin Alvimopan (Entereg) 12 mg BID PO 02/19/20 21:00 02/26/20 20:59 Bisoprolol Fumarate (Zebeta) 5 mg DAILY PO 02/17/20 09:00 02/18/20 12:41 Ciprofloxacin 400 mg/IV Miscellaneous Supplies 200 ml @ 200 mls/hr Q12H IV 02/17/20 02:00 02/19/20 01:03 Digoxin (Lanoxin) 0.25 mg DAILY PO 02/17/20 09:00 02/18/20 12:42 Diphenhydramine HCl (Benadryl) 12.5 mg Q4HP PRN IV ITCHING 02/19/20 14:45 Docusate Sodium (Colace) 200 mg BID PO 02/18/20 21:00 02/18/20 19:58 Fentanyl Citrate (Sublimaze) 25 mcg Q5MP PRN IV PAIN LEVEL 5-10 02/19/20 15:15 02/19/20 16:15 DC Home Med (Med Rec Complete!) ASDIRECTED XX 02/16/20 21:30 02/16/20 21:35 DC Hydromorphone HCl (Dilaudid) 0.4 mg Q5MP PRN IV PAIN LEVEL 4-7 02/19/20 15:15 02/19/20 16:15 DC Ketorolac Tromethamine (ToRADol) 30 mg Q6HP PRN IV MILD/MODERATE PAIN (PS 1-7) 02/16/20 23:30 02/21/20 23:29 02/19/20 18:33 Lactated Ringer's 1,000 ml @ 100 mls/hr Q10H IV 02/19/20 15:15 02/19/20 16:15 DC Levothyroxine Sodium (Synthroid) 50 mcg DAILY@0600 PO 02/17/20 06:00 02/18/20 05:46 Metronidazole 500 mg/IV Miscellaneous Supplies 100 ml @ 100 mls/hr Q8H IV 02/17/20 01:00 02/18/20 09:41 DC 02/18/20 08:53 Morphine Sulfate (Morphine Sulfate In 0.9%Nacl Iv Bag) Concentration 1 mg/ml ASDIRECTED PRN IV SEE LABEL COMMENTS 02/19/20 14:45 02/19/20 15:05 Morphine Sulfate (Morphine Sulfate Inj) 2 mg Q4H PRN IV MILD/MODERATE PAIN (PS 1-7) 02/16/20 23:30 02/19/20 14:47 DC Morphine Sulfate (Morphine Sulfate Inj) 4 mg Q4H PRN IV SEVERE PAIN (PS 8-10) 02/16/20 23:30 02/19/20 14:47 DC Naloxone HCl (Narcan) 0.1 mg Q5MP PRN IV SEE LABEL COMMENTS 02/19/20 14:45 Non-Formulary Medication (Epidural/FACILITIES SPECIALIST [place]) USE THIS ENTRY TO VEND ... Q1M PRN XX SEE LABEL COMMENTS 02/19/20 14:45 Ondansetron HCl (ZOFRAN INJection) 4 mg Q4HP PRN IV NAUSEA OR VOMITING 02/17/20 19:30 02/19/20 09:33 Ondansetron HCl (ZOFRAN INJection) 4 mg Q4HP PRN IV NAUSEA OR VOMITING 02/19/20 15:15 02/19/20 16:15 DC Ondansetron HCl (ZOFRAN INJection) 4 mg Q6HP PRN IV NAUSEA OR VOMITING 02/16/20 23:30 02/17/20 15:27 DC 02/17/20 13:26 Ondansetron HCl (ZOFRAN INJection) 4 mg Q6HP PRN IV NAUSEA 02/19/20 14:45 Ondansetron HCl (ZOFRAN INJection) 8 mg Q6HP PRN IV NAUSEA OR VOMITING 02/17/20 15:30 02/17/20 19:19 DC 02/17/20 17:14 Oxycodone HCl (Roxicodone, Oxyir) 5 mg ASDIRECTED PRN PO PAIN LEVEL 1-4 02/19/20 15:15 02/19/20 16:15 DC Pantoprazole Sodium (Protonix) 40 mg DAILY IV 02/17/20 09:00 02/19/20 09:22 Piperacillin Sod/ Tazobactam Sod 3.375 gm/Dextrose 50 ml @ 50 mls/hr Q6H IV 02/18/20 11:00 02/19/20 17:58 Potassium Chloride 10 meq/ IV Miscellaneous Supplies 100 ml @ 100 mls/hr Q1H IV 02/17/20 09:00 02/17/20 10:59 DC 02/17/20 10:23 Rosuvastatin Calcium (Crestor) 20 mg DAILY PO 02/17/20 09:00 02/18/20 12:41 Senna (Senokot) 2 tab BID PO 02/18/20 21:00 02/18/20 19:58 Simethicone (Mylicon) 120 mg QID PO 02/17/20 09:00 02/18/20 08:34 DC 02/17/20 09:34 Sodium Chloride 1,000 ml @ 15 mls/hr Q24H IV 02/19/20 14:44 Sodium Chloride 1,000 ml @ 150 mls/hr Q6H40M IV 02/16/20 23:22 02/19/20 09:33 Allergies Coded Allergies: No Known Allergies (Verified Allergy, Unknown, 02/16/20) Ruthie Escobar MD Feb 19, 2020 20:34
[2020-02-19] MEDS: ALVIMOPAN 12 MG CAPSULE (ENTEREG) PO SCH (21:37)
[2020-02-20] MEDS: CIPROFLOXACIN 400 MG in IV 1 EA IV SCH ×2 (01:49→14:59)
[2020-02-20] MEDS: KETOROLAC 30 MG/ML 1ML VIAL IV PRN ×4 (01:57→21:45)
[2020-02-20 01:59] VITALS: BP 126/59
[2020-02-20] MEDS: PIPERACILLIN/TAZOBACTAM SOD 3.375 GM in D5W MINI-BAG PLUS 50 ML IV SCH ×4 (05:28→21:45)
[2020-02-20] MEDS: NS 1,000 ML IV SCH ×3 (05:29→18:42)
[2020-02-20] MEDS: LEVOTHYROXINE 50MCG TABLET (0.05MG) PO SCH (05:40)
[2020-02-20 06:32] VITALS: BP 110/59
[2020-02-20 08:36] LABS: HEMATOCRIT 34.9 % (36.0-47.0); HEMOGLOBIN 11.5 g/dl (12.0-15.5); MEAN CORPUSCULAR HEMOGLOBIN 29.6 pg (27.0-33.0); MEAN CORPUSCULAR VOLUME 89.7 fl (80.0-96.0); PLATELET COUNT, AUTOMATED 331 10^3/uL (150-450); RED BLOOD COUNT 3.89 10^6/uL (4.00-5.40); WHITE BLOOD COUNT 16.2 10^3/uL (4.0-10.0)
[2020-02-20 09:06] LABS: BLOOD UREA NITROGEN 14 MG/DL (7-18); CARBON DIOXIDE LEVEL 28 MEQ/L (21-32); CHLORIDE LEVEL 106 MEQ/L (98-107); CREATININE FOR GFR 0.67 MG/DL (0.55-1.30); GLOMERULAR FILTRATION RATE > 60.0 (>51); GLUCOSE, FASTING 91 MG/DL (70-100); POTASSIUM SERUM 3.8 MEQ/L (3.5-5.1); SODIUM LEVEL 140 MEQ/L (136-145)
[2020-02-20] MEDS: PANTOPRAZOLE 40MG VIAL (C9113 PER 1) IV SCH (09:15)
[2020-02-20] MEDS: SENNA 8.6 MG TAB (SENOKOT) PO SCH ×2 (09:16→20:38)
[2020-02-20] MEDS: DOCUSATE SODIUM 100MG CAPSULE PO SCH ×2 (09:16→20:38)
[2020-02-20] MEDS: ALVIMOPAN 12 MG CAPSULE (ENTEREG) PO SCH ×2 (09:17→21:44)
[2020-02-20] MEDS: DIGOXIN 0.25 MG TAB PO SCH (09:17)
[2020-02-20] MEDS: ROSUVASTATIN 10 MG TAB (CRESTOR) PO SCH (09:18)
[2020-02-20] MEDS: bisoproloL fumarate 5 MG TAB PO SCH (09:19)
[2020-02-20] MEDS: ENOXAPARIN 40MG/0.4ML SYRINGE (J1650 PER 10MG) SC SCH (12:00)
[2020-02-20] MEDS ORDERED: PERCOCET 5MG/325MG TAB PO PRN ×2 (12:15)
[2020-02-20 14:00] VITALS: BP 120/66
--- NOTE | 2020-02-20 16:44 | IPNPDOC ---
Date Seen The patient was seen on 02/20/20. Progress Note SUBJECTIVE: POD 1 colectomy, colostomy placement. NG tube clamped, BEAN SPROUT GROWER pump stopped and chang catheter to be removed. Gas being produced in colostomy bag, patient feels much improved. Denies abdominal pain, chest pain, shortness of breath, fevers or chills. OBJECTIVE: PHYSICAL EXAM: Vitals: Please see below General: Lying in bed, Speaking in full sentences, AAOx3 HEENT: NC, AT, PERRLA, NG tube secured in place CVS: RRR, +S1S2, Murmurs / rubs / gallops Lungs: Fair air entry bilaterally, No appreciable wheezing / rales / rhonchi Abdomen: 2 ESTUARDO drains, colostomy present, incisions appear clean, nonsuppurative. Soft, distended abd, nontender on exam, BS + in 4 quadrants, no organomegaly Extremities: +1 pitting extremity edema bilateral lower ext, No calf tenderness Neuro: No focal motor or sensory deficit Skin: No visible rashes, normal skin turgor Psych: mood and affect appropriate LABORATORY: Please see below IMAGING: ABdXR 02/19/20: pending official reading CT abd/pelvis 02/16/20: 1. 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 Small mass and mildly enlarged lymph nodes in the sigmoid mesocolon. 2. No signs of distant metastatic disease. 3. No other acute findings. ASSESSMENT/PLAN: Abdominal pain likely 2/2 stricture at sigmoid colon possibly 2/2 inflammation vs. malignancy -POD 1 colectomy, colostomy placement -Obstuction appears resolved, passing gas and loose stool in colostomy bag. -Clamped NG tube -Pathology collected, to be sent out -C/w IVFs, IV ciprofloxacin and zosyn, pain regimen, NPO -Surgery primary service Chronic A. fib - Patient is currently in sinus rhythm - C/w digoxin and bisoprolol HTN - BP 140's systolic while on IVFs - C/w Bisoprolol with hold parameters DLP - C/w Rosuvastatin Hypothyroidism - C/w Levothyroxine ZOE on CPAP - Allow home CPAP use while inpatient GI prophylaxis - c/w Protonix DVT prophylaxis - TEDs/Sequentials Resolved issues: Hypokalemia, acute likely 2/2 to decreased PO intake Nausea/vomiting likely 2/2 to stricture at sigmoid colon vs. medication induced VS, I&O, 24H, Fishbone Vital Signs/I&O Vital Signs Date Time Temp Pulse Resp B/P (MAP) Pulse Ox O2 Delivery O2 Flow Rate FiO2 02/20/20 14:00 98.1 65 19 120/66 (84) 93 Room Air 02/20/20 01:59 2.0 I&O- Last 24 Hours up to 6 AM 02/20/20 06:00 Intake Total 3510 ml Output Total 3605 ml Balance -95 ml Laboratory Data 24H LABS Laboratory Tests 2 02/20/20 08:14: Nucleated Red Blood Cells % (auto) 0.0, Anion Gap 6L, Glomerular Filtration Rate > 60.0, Calcium Level 8.0L CBC/BMP Laboratory Tests 02/20/20 08:14 Current Medications Current Medications Medications (Trade) Dose Ordered Sig/Jenny Route PRN Reason Start Time Stop Time Status Last Admin Dose Admin Alvimopan (Entereg) 12 mg BID PO 02/19/20 21:00 02/26/20 20:59 02/20/20 09:17 Bisoprolol Fumarate (Zebeta) 5 mg DAILY PO 02/17/20 09:00 02/20/20 09:19 Ciprofloxacin 400 mg/IV Miscellaneous Supplies 200 ml @ 200 mls/hr Q12H IV 02/17/20 02:00 02/20/20 14:59 Digoxin (Lanoxin) 0.25 mg DAILY PO 02/17/20 09:00 02/20/20 09:17 Diphenhydramine HCl (Benadryl) 12.5 mg Q4HP PRN IV ITCHING 02/19/20 14:45 02/20/20 12:04 DC Docusate Sodium (Colace) 200 mg BID PO 02/18/20 21:00 02/20/20 09:16 Enoxaparin Sodium (Lovenox) 40 mg DAILY SC 02/20/20 09:00 Fentanyl Citrate (Sublimaze) 25 mcg Q5MP PRN IV PAIN LEVEL 5-10 02/19/20 15:15 02/19/20 16:15 DC Home Med (Med Rec Complete!) ASDIRECTED XX 02/16/20 21:30 02/16/20 21:35 DC Hydromorphone HCl (Dilaudid) 0.4 mg Q5MP PRN IV PAIN LEVEL 4-7 02/19/20 15:15 02/19/20 16:15 DC Ketorolac Tromethamine (ToRADol) 30 mg Q6HP PRN IV MILD/MODERATE PAIN (PS 1-7) 02/16/20 23:30 02/21/20 23:29 02/20/20 15:38 Lactated Ringer's 1,000 ml @ 100 mls/hr Q10H IV 02/19/20 15:15 02/19/20 16:15 DC Levothyroxine Sodium (Synthroid) 50 mcg DAILY@0600 PO 02/17/20 06:00 02/20/20 05:40 Metronidazole 500 mg/IV Miscellaneous Supplies 100 ml @ 100 mls/hr Q8H IV 02/17/20 01:00 02/18/20 09:41 DC 02/18/20 08:53 Morphine Sulfate (Morphine Sulfate In 0.9%Nacl Iv Bag) Concentration 1 mg/ml ASDIRECTED PRN IV SEE LABEL COMMENTS 02/19/20 14:45 02/20/20 12:04 DC 02/19/20 15:05 Morphine Sulfate (Morphine Sulfate Inj) 2 mg Q4H PRN IV MILD/MODERATE PAIN (PS 1-7) 02/16/20 23:30 02/19/20 14:47 DC Morphine Sulfate (Morphine Sulfate Inj) 4 mg Q4H PRN IV SEVERE PAIN (PS 8-10) 02/16/20 23:30 02/19/20 14:47 DC Naloxone HCl (Narcan) 0.1 mg Q5MP PRN IV SEE LABEL COMMENTS 02/19/20 14:45 02/20/20 12:04 DC Non-Formulary Medication (Epidural/BEAN SPROUT GROWER [place]) USE THIS ENTRY TO VEND ... Q1M PRN XX SEE LABEL COMMENTS 02/19/20 14:45 02/20/20 12:04 DC Ondansetron HCl (ZOFRAN INJection) 4 mg Q4HP PRN IV NAUSEA OR VOMITING 02/17/20 19:30 02/19/20 09:33 Ondansetron HCl (ZOFRAN INJection) 4 mg Q4HP PRN IV NAUSEA OR VOMITING 02/19/20 15:15 02/19/20 16:15 DC Ondansetron HCl (ZOFRAN INJection) 4 mg Q6HP PRN IV NAUSEA OR VOMITING 02/16/20 23:30 02/17/20 15:27 DC 02/17/20 13:26 Ondansetron HCl (ZOFRAN INJection) 4 mg Q6HP PRN IV NAUSEA 02/19/20 14:45 02/20/20 12:04 DC Ondansetron HCl (ZOFRAN INJection) 8 mg Q6HP PRN IV NAUSEA OR VOMITING 02/17/20 15:30 02/17/20 19:19 DC 02/17/20 17:14 Oxycodone HCl (Roxicodone, Oxyir) 5 mg ASDIRECTED PRN PO PAIN LEVEL 1-4 02/19/20 15:15 02/19/20 16:15 DC Oxycodone/ Acetaminophen (Percocet 5mg/ 325mg Tablet) 1 tab Q4HP PRN PO MODERATE PAIN (PS 5-7) 02/20/20 12:15 Oxycodone/ Acetaminophen (Percocet 5mg/ 325mg Tablet) 2 tab Q6HP PRN PO SEVERE PAIN (PS 8-10) 02/20/20 12:15 Pantoprazole Sodium (Protonix) 40 mg DAILY IV 02/17/20 09:00 02/20/20 09:15 Piperacillin Sod/ Tazobactam Sod 3.375 gm/Dextrose 50 ml @ 50 mls/hr Q6H IV 02/18/20 11:00 02/20/20 11:23 Potassium Chloride 10 meq/ IV Miscellaneous Supplies 100 ml @ 100 mls/hr Q1H IV 02/17/20 09:00 02/17/20 10:59 DC 02/17/20 10:23 Rosuvastatin Calcium (Crestor) 20 mg DAILY PO 02/17/20 09:00 02/20/20 09:18 Senna (Senokot) 2 tab BID PO 02/18/20 21:00 02/20/20 09:16 Simethicone (Mylicon) 120 mg QID PO 02/17/20 09:00 02/18/20 08:34 DC 02/17/20 09:34 Sodium Chloride 1,000 ml @ 15 mls/hr Q24H IV 02/19/20 14:44 02/20/20 12:04 DC Sodium Chloride 1,000 ml @ 150 mls/hr Q6H40M IV 02/16/20 23:22 02/20/20 11:26 Allergies Coded Allergies: No Known Allergies (Verified Allergy, Unknown, 02/16/20) Ruthie Escobar MD Feb 20, 2020 16:44
[2020-02-20 20:56] VITALS: BP 124/65
[2020-02-21] MEDS: NS 1,000 ML IV SCH ×4 (01:11→19:57)
[2020-02-21] MEDS: CIPROFLOXACIN 400 MG in IV 1 EA IV SCH ×2 (01:11→14:16)
[2020-02-21] MEDS: PIPERACILLIN/TAZOBACTAM SOD 3.375 GM in D5W MINI-BAG PLUS 50 ML IV SCH ×4 (05:05→23:20)
[2020-02-21] MEDS: LEVOTHYROXINE 50MCG TABLET (0.05MG) PO SCH (05:05)
[2020-02-21] MEDS: KETOROLAC 30 MG/ML 1ML VIAL IV PRN ×3 (05:05→20:00)
[2020-02-21 07:03] VITALS: BP 129/67
[2020-02-21] MEDS: ENOXAPARIN 40MG/0.4ML SYRINGE (J1650 PER 10MG) SC SCH (08:52)
[2020-02-21] MEDS: ALVIMOPAN 12 MG CAPSULE (ENTEREG) PO SCH ×2 (08:52→19:56)
[2020-02-21] MEDS: DIGOXIN 0.25 MG TAB PO SCH (08:55)
[2020-02-21] MEDS: ROSUVASTATIN 10 MG TAB (CRESTOR) PO SCH (08:55)
[2020-02-21] MEDS: SENNA 8.6 MG TAB (SENOKOT) PO SCH ×2 (08:56→19:57)
[2020-02-21] MEDS: DOCUSATE SODIUM 100MG CAPSULE PO SCH ×2 (08:56→19:56)
[2020-02-21] MEDS: PANTOPRAZOLE 40MG VIAL (C9113 PER 1) IV SCH (08:56)
[2020-02-21 10:00] VITALS: BP 145/79
[2020-02-21 10:28] LABS: HEMATOCRIT 34.7 % (36.0-47.0); HEMOGLOBIN 11.1 g/dl (12.0-15.5); MEAN CORPUSCULAR HEMOGLOBIN 29.4 pg (27.0-33.0); MEAN CORPUSCULAR VOLUME 91.8 fl (80.0-96.0); PLATELET COUNT, AUTOMATED 310 10^3/uL (150-450); RED BLOOD COUNT 3.78 10^6/uL (4.00-5.40); WHITE BLOOD COUNT 14.2 10^3/uL (4.0-10.0)
[2020-02-21] MEDS: bisoproloL fumarate 5 MG TAB PO SCH (10:36)
[2020-02-21 11:03] LABS: BLOOD UREA NITROGEN 11 MG/DL (7-18); CALCIUM LEVEL 8.1 MG/DL (8.5-10.1); CARBON DIOXIDE LEVEL 27 MEQ/L (21-32); CHLORIDE LEVEL 106 MEQ/L (98-107); CREATININE FOR GFR 0.65 MG/DL (0.55-1.30); GLOMERULAR FILTRATION RATE > 60.0 (>51); GLUCOSE, FASTING 73 MG/DL (70-100); POTASSIUM SERUM 3.1 MEQ/L (3.5-5.1); SODIUM LEVEL 140 MEQ/L (136-145)
--- NOTE | 2020-02-21 13:56 | IPNPDOC ---
Date Seen The patient was seen on 02/21/20. Progress Note SUBJECTIVE: POD 2 colectomy, colostomy placement. NG tube clamped, NPO except meds, pain controlled. Denies abdominal pain, chest pain, shortness of breath, fevers or chills. OBJECTIVE: PHYSICAL EXAM: Vitals: Please see below General: Lying in bed, Speaking in full sentences, AAOx3 HEENT: NC, AT, PERRLA, NG tube secured in place CVS: RRR, +S1S2, Murmurs / rubs / gallops Lungs: Fair air entry bilaterally, No appreciable wheezing / rales / rhonchi Abdomen: 2 ESTUARDO drains, colostomy present, incisions appear clean, nonsuppurative. Soft, distended abd, nontender on exam, BS + in 4 quadrants, no organomegaly Extremities: nonpitting extremity edema bilateral lower ext, No calf tenderness Neuro: No focal motor or sensory deficit Skin: No visible rashes, normal skin turgor Psych: mood and affect appropriate LABORATORY: Please see below IMAGING: ABdXR 02/19/20: pending official reading CT abd/pelvis 02/16/20: 1. 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 Small mass and mildly enlarged lymph nodes in the sigmoid mesocolon. 2. No signs of distant metastatic disease. 3. No other acute findings. ASSESSMENT/PLAN: Abdominal pain likely 2/2 stricture at sigmoid colon possibly 2/2 inflammation vs. malignancy -POD 2 colectomy, colostomy placement -Obstuction appears resolved, passing gas and loose stool in colostomy bag. -Clamped NG tube -Pathology collected, to be sent out per surgery -C/w IVFs, IV ciprofloxacin and zosyn, pain regimen, NPO -Surgery primary service Hypokalemia, acute -K 3.1 -supplementing PO -F/u AM labs Chronic A. fib - Patient is currently in sinus rhythm - C/w digoxin and bisoprolol HTN - BP 140's systolic while on IVFs - C/w Bisoprolol with hold parameters DLP - C/w Rosuvastatin Hypothyroidism - C/w Levothyroxine ZOE on CPAP - Allow home CPAP use while inpatient GI prophylaxis - c/w Protonix DVT prophylaxis - TEDs/Sequentials Resolved issues: Nausea/vomiting likely 2/2 to stricture at sigmoid colon vs. medication induced VS, I&O, 24H, Fishbone Vital Signs/I&O Vital Signs Date Time Temp Pulse Resp B/P (MAP) Pulse Ox O2 Delivery O2 Flow Rate FiO2 02/21/20 10:36 63 146/75 02/21/20 07:03 98.5 18 97 Room Air 02/20/20 01:59 2.0 I&O- Last 24 Hours up to 6 AM 02/21/20 05:59 Intake Total 3700 ml Output Total 955 ml Balance 2745 ml Laboratory Data 24H LABS Laboratory Tests 2 02/21/20 10:17: Nucleated Red Blood Cells % (auto) 0.0, Anion Gap 7L, Glomerular Filtration Rate > 60.0, Calcium Level 8.1L CBC/BMP Laboratory Tests 02/21/20 10:17 Current Medications Current Medications Medications (Trade) Dose Ordered Sig/Jenny Route PRN Reason Start Time Stop Time Status Last Admin Dose Admin Alvimopan (Entereg) 12 mg BID PO 02/19/20 21:00 02/26/20 20:59 02/21/20 08:52 Bisoprolol Fumarate (Zebeta) 5 mg DAILY PO 02/17/20 09:00 02/21/20 10:36 Ciprofloxacin 400 mg/IV Miscellaneous Supplies 200 ml @ 200 mls/hr Q12H IV 02/17/20 02:00 02/21/20 01:11 Digoxin (Lanoxin) 0.25 mg DAILY PO 02/17/20 09:00 02/21/20 08:55 Diphenhydramine HCl (Benadryl) 12.5 mg Q4HP PRN IV ITCHING 02/19/20 14:45 02/20/20 12:04 DC Docusate Sodium (Colace) 200 mg BID PO 02/18/20 21:00 02/20/20 09:16 Enoxaparin Sodium (Lovenox) 40 mg DAILY SC 02/20/20 09:00 Fentanyl Citrate (Sublimaze) 25 mcg Q5MP PRN IV PAIN LEVEL 5-10 02/19/20 15:15 02/19/20 16:15 DC Home Med (Med Rec Complete!) ASDIRECTED XX 02/16/20 21:30 02/16/20 21:35 DC Hydromorphone HCl (Dilaudid) 0.4 mg Q5MP PRN IV PAIN LEVEL 4-7 02/19/20 15:15 02/19/20 16:15 DC Ketorolac Tromethamine (ToRADol) 30 mg Q6HP PRN IV MILD/MODERATE PAIN (PS 1-7) 02/16/20 23:30 02/21/20 23:29 02/21/20 12:38 Lactated Ringer's 1,000 ml @ 100 mls/hr Q10H IV 02/19/20 15:15 02/19/20 16:15 DC Levothyroxine Sodium (Synthroid) 50 mcg DAILY@0600 PO 02/17/20 06:00 02/21/20 05:05 Metronidazole 500 mg/IV Miscellaneous Supplies 100 ml @ 100 mls/hr Q8H IV 02/17/20 01:00 02/18/20 09:41 DC 02/18/20 08:53 Morphine Sulfate (Morphine Sulfate In 0.9%Nacl Iv Bag) Concentration 1 mg/ml ASDIRECTED PRN IV SEE LABEL COMMENTS 02/19/20 14:45 02/20/20 12:04 DC 02/19/20 15:05 Morphine Sulfate (Morphine Sulfate Inj) 2 mg Q4H PRN IV MILD/MODERATE PAIN (PS 1-7) 02/16/20 23:30 02/19/20 14:47 DC Morphine Sulfate (Morphine Sulfate Inj) 4 mg Q4H PRN IV SEVERE PAIN (PS 8-10) 02/16/20 23:30 02/19/20 14:47 DC Naloxone HCl (Narcan) 0.1 mg Q5MP PRN IV SEE LABEL COMMENTS 02/19/20 14:45 02/20/20 12:04 DC Non-Formulary Medication (Epidural/JUICE MIXER [place]) USE THIS ENTRY TO VEND ... Q1M PRN XX SEE LABEL COMMENTS 02/19/20 14:45 02/20/20 12:04 DC Ondansetron HCl (ZOFRAN INJection) 4 mg Q4HP PRN IV NAUSEA OR VOMITING 02/17/20 19:30 02/19/20 09:33 Ondansetron HCl (ZOFRAN INJection) 4 mg Q4HP PRN IV NAUSEA OR VOMITING 02/19/20 15:15 02/19/20 16:15 DC Ondansetron HCl (ZOFRAN INJection) 4 mg Q6HP PRN IV NAUSEA OR VOMITING 02/16/20 23:30 02/17/20 15:27 DC 02/17/20 13:26 Ondansetron HCl (ZOFRAN INJection) 4 mg Q6HP PRN IV NAUSEA 02/19/20 14:45 02/20/20 12:04 DC Ondansetron HCl (ZOFRAN INJection) 8 mg Q6HP PRN IV NAUSEA OR VOMITING 02/17/20 15:30 02/17/20 19:19 DC 02/17/20 17:14 Oxycodone HCl (Roxicodone, Oxyir) 5 mg ASDIRECTED PRN PO PAIN LEVEL 1-4 02/19/20 15:15 02/19/20 16:15 DC Oxycodone/ Acetaminophen (Percocet 5mg/ 325mg Tablet) 1 tab Q4HP PRN PO MODERATE PAIN (PS 5-7) 02/20/20 12:15 Oxycodone/ Acetaminophen (Percocet 5mg/ 325mg Tablet) 2 tab Q6HP PRN PO SEVERE PAIN (PS 8-10) 02/20/20 12:15 Pantoprazole Sodium (Protonix) 40 mg DAILY IV 02/17/20 09:00 02/21/20 08:56 Piperacillin Sod/ Tazobactam Sod 3.375 gm/Dextrose 50 ml @ 50 mls/hr Q6H IV 02/18/20 11:00 02/21/20 10:34 Potassium Chloride 10 meq/ IV Miscellaneous Supplies 100 ml @ 100 mls/hr Q1H IV 02/17/20 09:00 02/17/20 10:59 DC 02/17/20 10:23 Rosuvastatin Calcium (Crestor) 20 mg DAILY PO 02/17/20 09:00 02/21/20 08:55 Senna (Senokot) 2 tab BID PO 02/18/20 21:00 02/20/20 09:16 Simethicone (Mylicon) 120 mg QID PO 02/17/20 09:00 02/18/20 08:34 DC 02/17/20 09:34 Sodium Chloride 1,000 ml @ 15 mls/hr Q24H IV 02/19/20 14:44 02/20/20 12:04 DC Sodium Chloride 1,000 ml @ 150 mls/hr Q6H40M IV 02/16/20 23:22 02/21/20 09:42 Allergies Coded Allergies: No Known Allergies (Verified Allergy, Unknown, 02/16/20) Ruthie Escobar MD Feb 21, 2020 13:56
[2020-02-21 14:00] VITALS: BP 126/56
--- NOTE | 2020-02-21 14:01 | IPN ---
PROGRESS NOTE DATE: 02/19/2020 SUBJECTIVE: The patient developed some abdominal distention overnight and into the professor of musicology hours, and then she was complaining of abdominal discomfort and pressure sensation. We obtained an x-ray and in deed has air-filled colon throughout with no distal drainage. However, given her BiPAP CPAP that was on, I am wondering if this is the major contribution to this issue. In any case evaluating her this morning, she has a distended abdomen, mildly uncomfortable, but no peritoneal signs, no guarding, and no rebound. She placed her own NG tube earlier this morning and really has not had very much output. Since putting in that NG tube, she really has not had much output. From the standpoint of feeling better, I have asked her, and she is not feeling all that much better. Thus, early this morning we discussed putting her on the OR schedule and we will plan on operative intervention with an open colectomy and a colostomy. However, if she has significant improvement with decreased distention over the next few hours and possibly some bowel movements, then we might be able to forgo this. My concern at this time, however, is that with the increasing white count, there may be some infectious process present at the colon area or some other etiology as of yet to be determined, and this also makes it less likely that we will be able to proceed with this. OBJECTIVE: After allowing a few hours, the patient still complained of abdominal distention and did not have any significant improvement. Still not complaining of any severe pain, but just feels full and pressure. ASSESSMENT AND PLAN: Thus given these findings, we discussed at length proceeding with an open operative intervention. If the patient has nicely decompressed distal colon and not significantly edematous or inflamed proximal colon, possibly we could proceed with an anastomosis; but at this point, I did not want to mislead her in any manner, and we discussed that the most likely end result will be a sigmoid colectomy and a colostomy. She understands and would like to proceed with things as soon as possible.
[2020-02-21] MEDS ORDERED: POTASSIUM CHLORIDE 10 MEQ SR TABLET PO ONE ×2 (15:00→17:00)
[2020-02-21 22:00] VITALS: BP 151/75
[2020-02-22] MEDS ORDERED: traMADol 50 MG TAB PO PRN ×3 (01:30→09:15)
[2020-02-22 02:00] VITALS: BP 153/70
[2020-02-22] MEDS ORDERED: traMADol 50 MG TAB PO ONE (03:45)
[2020-02-22] MEDS: NS 1,000 ML IV SCH (04:02)
[2020-02-22] MEDS: LEVOTHYROXINE 50MCG TABLET (0.05MG) PO SCH (05:57)
[2020-02-22] MEDS: PIPERACILLIN/TAZOBACTAM SOD 3.375 GM in D5W MINI-BAG PLUS 50 ML IV SCH ×4 (05:58→22:40)
[2020-02-22 06:00] VITALS: BP 145/68
[2020-02-22 06:42] LABS: HEMATOCRIT 31.9 % (36.0-47.0); HEMOGLOBIN 10.5 g/dl (12.0-15.5); MEAN CORPUSCULAR HGB CONC 32.9 g/dl (32.0-36.5); MEAN CORPUSCULAR VOLUME 91.1 fl (80.0-96.0); PLATELET COUNT, AUTOMATED 301 10^3/uL (150-450)
[2020-02-22 07:09] LABS: BLOOD UREA NITROGEN 5 MG/DL (7-18); CALCIUM LEVEL 8.4 MG/DL (8.5-10.1); CARBON DIOXIDE LEVEL 29 MEQ/L (21-32); CHLORIDE LEVEL 106 MEQ/L (98-107); CREATININE FOR GFR 0.52 MG/DL (0.55-1.30); GLOMERULAR FILTRATION RATE > 60.0 (>51); GLUCOSE, FASTING 76 MG/DL (70-100); POTASSIUM SERUM 3.3 MEQ/L (3.5-5.1); SODIUM LEVEL 139 MEQ/L (136-145)
[2020-02-22] MEDS ORDERED: POTASSIUM CHLORIDE 10 MEQ SR TABLET PO ONE (08:30)
--- NOTE | 2020-02-22 08:34 | RO ---
OPERATIVE NOTE DATE OF OPERATION: 02/19/2020 PREOPERATIVE DIAGNOSIS: Colonic obstruction (sigmoid colon). POSTOPERATIVE DIAGNOSIS: Colonic obstruction, sigmoid colon, distended proximal colon. PROCEDURE: Sigmoid colectomy with end colostomy, repair of multiple colonic serosal tears. SURGEON: Román Parks M.D. LACING OPERATOR: Cipriano Dacosta MD (provided retraction, exposure, assistance with abdominal wall closure and colostomy placement). ESTIMATED BLOOD LOSS: 100 mL FLUIDS: Crystalloid. BRIEF PROCEDURE SUMMARY: The patient was brought to the operating room and was given general anesthesia. After adequate anesthesia and preoperative antibiotics were given, the patient was prepped and draped in the usual sterile fashion. Next, a midline incision was made with a skin knife. Blunt dissection was carried down to fascia. The fascia was opened along the midline where she had a previous lower midline incision, opened up around the umbilicus on the right hand side but the bowel was so distended at this time, there really was not much area to work with and thus, I increased the size of the incision both superiorly and inferiorly. Once I was able this adequately the incision, a Bookwalter was placed and retractors were used to evaluate the bowel. The small bowel looked nondistended and as such, we had a competent ileocecal valve and no retrograde filling of the small bowel, unfortunately. Because the colon itself and even the cecum had some serosal tears on it in the cecum and a little bit on the right colon and in the transverse colon. I did not appreciate any other areas of serosal tears. In any case, given this finding and the distention present, I did not want to manipulate the bowel any further without decompressing it. Thus, a small cecostomy hole was made with and an NG tube was placed into this and I was able to evacuate a significant amount of air throughout the transverse colon, right colon and the cecum and an approximately a liter of liquid stool as well. Once this was completed, the purse-string was closed and that serosal tear was closed with interrupted 3-0 Vicryl. Next, once the large bowel was decompressed and it was much easier to pack the bowel out of the way and take down the white line of Toldt and mobilize the sigmoid colon. The ovary was stuck up against the mesentery on the left-hand side. This was taken down but eventually once this was mobilized, the white line of Toldt was mobilized a little bit more distally down towards the rectum and on the medial aspect down towards the rectum. Once the lesion could be appreciated, it was very firm lesion and at least 5 cm proximal to this lesion, the colon was transected with a JAMES stapler and the mesentery was taken with Otoe 60 stapler down to the sigmoid vessels. These were transected using an Otoe JAMES stapler and up towards the proximal rectum. The proximal low rectum was transected using a Contour stapler and the mesentery was taken with the Otoe 60 vascular load. Once this was performed, this was out of the abdomen, the pelvis was copiously irrigated until clear. The white line of Toldt was opened up on the left-hand side going towards the splenic flexure, taking the mesocolon off the Gerota's fascia on this side and once this was mobilized nicely and felt that I could get the colon up to the abdominal wall, attention was turned back towards looking at the rest of the colon. In this manner, the omentum was brought up and I could see a small serosal tear in the hepatic flexure portion of the transverse colon which was closed with interrupted 3-0 Vicryls. After following this colon up and around the corner, there was some hemorrhage along the outside of the colon itself and getting through this layer, I did not see a specific area of serosal tear but imbricated an area that seemed if anything possible, a small serosal in this area. Thus, I imbricated this once again with the 3-0 Vicryl. Back down on the cecum, there was another area that was lateral to the appendix and on the lateral side of the cecum and this was imbricated using 3-0 Vicryl. Once again, the aspiration fluid from the NG tube in the colonic decompression was nonbloody, did not reveal any of the typical concerns for mucosal ischemia, etc and all the muscularis in this area was nicely viable and pink. A good blood supply was appreciated throughout this area. After this was copiously irrigated until clear, a Corey-Suarez drain was left in the bed of the dissection, brought up through a right lateral stab wound and the colostomy was brought up through a trans-rectus muscle, left-sided abdominal incision. This was later matured with 3-0 Vicryls. The midline was closed with looped 0 PDS in a running manner and a #15 Corey-Suarez drain was left in the subcutaneous tissue along the midline. Alpine were used to approximate the skin and a dry sterile dressing was applied. Ostomy appliance was applied. The patient was awakened, extubated, brought to the recovery room awake, alert, hemodynamically stable. Sponge and needle counts were correct x2.
[2020-02-22] MEDS: ENOXAPARIN 40MG/0.4ML SYRINGE (J1650 PER 10MG) SC SCH (09:00)
[2020-02-22] MEDS: DOCUSATE SODIUM 100MG CAPSULE PO SCH ×2 (09:00→20:42)
[2020-02-22] MEDS: SENNA 8.6 MG TAB (SENOKOT) PO SCH ×2 (09:00→20:42)
[2020-02-22] MEDS: ALVIMOPAN 12 MG CAPSULE (ENTEREG) PO SCH ×2 (09:07→20:10)
[2020-02-22] MEDS: DIGOXIN 0.25 MG TAB PO SCH (09:10)
[2020-02-22] MEDS: ROSUVASTATIN 10 MG TAB (CRESTOR) PO SCH (09:11)
[2020-02-22] MEDS: bisoproloL fumarate 5 MG TAB PO SCH (09:12)
[2020-02-22 10:00] VITALS: BP 151/75
[2020-02-22] MEDS: traMADol 50 MG TAB PO PRN ×2 (11:45→22:40)
[2020-02-22 13:08] LABS: HEMATOCRIT 31.9 % (36.0-47.0); HEMOGLOBIN 10.4 g/dl (12.0-15.5)
[2020-02-22] MEDS: IBUPROFEN 600MG TAB PO SCH ×2 (13:47→18:17)
[2020-02-22 14:00] VITALS: BP 148/77
--- NOTE | 2020-02-22 17:26 | IPNPDOC ---
Date Seen The patient was seen on 02/22/20. Progress Note SUBJECTIVE: POD 3 colectomy, colostomy placement. Advanced diet today. Discussed with surgery: concern for neoplasm, path pending. Denies abdominal pain, chest pain, shortness of breath, fevers or chills. OBJECTIVE: PHYSICAL EXAM: Vitals: Please see below General: Lying in bed, Speaking in full sentences, AAOx3 HEENT: NC, AT, PERRLA, corrective lenses in place CVS: RRR, +S1S2, Murmurs / rubs / gallops Lungs: Fair air entry bilaterally, No appreciable wheezing / rales / rhonchi Abdomen: 2 ESTUARDO drains, colostomy present, incisions appear clean, nonsuppurative. Soft, nondistended abd, nontender on exam, BS + in 4 quadrants, no organomegaly Extremities: nonpitting extremity edema bilateral lower ext, No calf tenderness Neuro: No focal motor or sensory deficit Skin: No visible rashes, normal skin turgor Psych: mood and affect appropriate LABORATORY: Please see below IMAGING: CT abd/pelvis 02/16/20: 1. 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 Small mass and mildly enlarged lymph nodes in the sigmoid mesocolon. 2. No signs of distant metastatic disease. 3. No other acute findings. ASSESSMENT/PLAN: Abdominal pain likely 2/2 stricture at sigmoid colon r/o malignancy -POD 3 colectomy, colostomy placement -Per surgery, highly suspicious for neoplasm -Passing gas and loose stool in colostomy bag. -Pathology pending -IVFs stopped, diet advanced -C/w IV zosyn, pain regimen, encouraging ambulation -Surgery primary service Hypokalemia, acute -K 3.3 -supplementing PO -F/u AM labs Chronic A. fib - Patient is currently in sinus rhythm - C/w digoxin and bisoprolol HTN - BP 140's systolic while on IVFs - C/w Bisoprolol with hold parameters DLP - C/w Rosuvastatin Hypothyroidism - C/w Levothyroxine ZOE on CPAP - Allow home CPAP use while inpatient GI prophylaxis - c/w Protonix DVT prophylaxis - TEDs/Sequentials Resolved issues: Nausea/vomiting likely 2/2 to stricture at sigmoid colon vs. medication induced DISPOSITION: Patient has been healing and advancing very well. Per surgery, possibly discharge home early this week. VS, I&O, 24H, Fishbone Vital Signs/I&O Vital Signs Date Time Temp Pulse Resp B/P (MAP) Pulse Ox O2 Delivery O2 Flow Rate FiO2 02/22/20 14:00 97.9 60 18 148/77 (100) 98 Room Air 02/20/20 01:59 2.0 I&O- Last 24 Hours up to 6 AM 02/22/20 06:00 Intake Total 2120 ml Output Total 5845 ml Balance -3725 ml Laboratory Data 24H LABS Laboratory Tests 2 02/22/20 06:24: Nucleated Red Blood Cells % (auto) 0.0, Anion Gap 4L, Glomerular Filtration Rate > 60.0, Calcium Level 8.4L CBC/BMP Laboratory Tests 02/22/20 06:24 02/22/20 12:58 Current Medications Current Medications Medications (Trade) Dose Ordered Sig/Jenny Route PRN Reason Start Time Stop Time Status Last Admin Dose Admin Alvimopan (Entereg) 12 mg BID PO 02/19/20 21:00 02/26/20 20:59 02/22/20 09:07 Bisoprolol Fumarate (Zebeta) 5 mg DAILY PO 02/17/20 09:00 02/22/20 09:12 Ciprofloxacin 400 mg/IV Miscellaneous Supplies 200 ml @ 200 mls/hr Q12H IV 02/17/20 02:00 02/21/20 16:09 DC 02/21/20 14:16 Digoxin (Lanoxin) 0.25 mg DAILY PO 02/17/20 09:00 02/22/20 09:10 Diphenhydramine HCl (Benadryl) 12.5 mg Q4HP PRN IV ITCHING 02/19/20 14:45 02/20/20 12:04 DC Docusate Sodium (Colace) 200 mg BID PO 02/18/20 21:00 02/20/20 09:16 Enoxaparin Sodium (Lovenox) 40 mg DAILY SC 02/20/20 09:00 Fentanyl Citrate (Sublimaze) 25 mcg Q5MP PRN IV PAIN LEVEL 5-10 02/19/20 15:15 02/19/20 16:15 DC Home Med (Med Rec Complete!) ASDIRECTED XX 02/16/20 21:30 02/16/20 21:35 DC Hydromorphone HCl (Dilaudid) 0.4 mg Q5MP PRN IV PAIN LEVEL 4-7 02/19/20 15:15 02/19/20 16:15 DC Ibuprofen (Advil) 600 mg WM PO 02/22/20 12:30 02/22/20 13:47 Ketorolac Tromethamine (ToRADol) 30 mg Q6HP PRN IV MILD/MODERATE PAIN (PS 1-7) 02/16/20 23:30 02/21/20 23:29 DC 02/21/20 20:00 Lactated Ringer's 1,000 ml @ 100 mls/hr Q10H IV 02/19/20 15:15 02/19/20 16:15 DC Levothyroxine Sodium (Synthroid) 50 mcg DAILY@0600 PO 02/17/20 06:00 02/22/20 05:57 Metronidazole 500 mg/IV Miscellaneous Supplies 100 ml @ 100 mls/hr Q8H IV 02/17/20 01:00 02/18/20 09:41 DC 02/18/20 08:53 Morphine Sulfate (Morphine Sulfate In 0.9%Nacl Iv Bag) Concentration 1 mg/ml ASDIRECTED PRN IV SEE LABEL COMMENTS 02/19/20 14:45 02/20/20 12:04 DC 02/19/20 15:05 Morphine Sulfate (Morphine Sulfate Inj) 2 mg Q4H PRN IV MILD/MODERATE PAIN (PS 1-7) 02/16/20 23:30 02/19/20 14:47 DC Morphine Sulfate (Morphine Sulfate Inj) 4 mg Q4H PRN IV SEVERE PAIN (PS 8-10) 02/16/20 23:30 02/19/20 14:47 DC Naloxone HCl (Narcan) 0.1 mg Q5MP PRN IV SEE LABEL COMMENTS 02/19/20 14:45 02/20/20 12:04 DC Non-Formulary Medication (Epidural/VERIFICATION MANAGER [place]) USE THIS ENTRY TO VEND ... Q1M PRN XX SEE LABEL COMMENTS 02/19/20 14:45 02/20/20 12:04 DC Ondansetron HCl (ZOFRAN INJection) 4 mg Q4HP PRN IV NAUSEA OR VOMITING 02/17/20 19:30 02/19/20 09:33 Ondansetron HCl (ZOFRAN INJection) 4 mg Q4HP PRN IV NAUSEA OR VOMITING 02/19/20 15:15 02/19/20 16:15 DC Ondansetron HCl (ZOFRAN INJection) 4 mg Q6HP PRN IV NAUSEA OR VOMITING 02/16/20 23:30 02/17/20 15:27 DC 02/17/20 13:26 Ondansetron HCl (ZOFRAN INJection) 4 mg Q6HP PRN IV NAUSEA 02/19/20 14:45 02/20/20 12:04 DC Ondansetron HCl (ZOFRAN INJection) 8 mg Q6HP PRN IV NAUSEA OR VOMITING 02/17/20 15:30 02/17/20 19:19 DC 02/17/20 17:14 Oxycodone HCl (Roxicodone, Oxyir) 5 mg ASDIRECTED PRN PO PAIN LEVEL 1-4 02/19/20 15:15 02/19/20 16:15 DC Oxycodone/ Acetaminophen (Percocet 5mg/ 325mg Tablet) 1 tab Q4HP PRN PO MODERATE PAIN (PS 5-7) 02/20/20 12:15 Oxycodone/ Acetaminophen (Percocet 5mg/ 325mg Tablet) 2 tab Q6HP PRN PO SEVERE PAIN (PS 8-10) 02/20/20 12:15 Pantoprazole Sodium (Protonix) 40 mg DAILY IV 02/17/20 09:00 02/22/20 09:09 DC 02/21/20 08:56 Piperacillin Sod/ Tazobactam Sod 3.375 gm/Dextrose 50 ml @ 50 mls/hr Q6H IV 02/18/20 11:00 02/22/20 11:44 Potassium Chloride 10 meq/ IV Miscellaneous Supplies 100 ml @ 100 mls/hr Q1H IV 02/17/20 09:00 02/17/20 10:59 DC 02/17/20 10:23 Rosuvastatin Calcium (Crestor) 20 mg DAILY PO 02/17/20 09:00 02/22/20 09:11 Senna (Senokot) 2 tab BID PO 02/18/20 21:00 02/20/20 09:16 Simethicone (Mylicon) 120 mg QID PO 02/17/20 09:00 02/18/20 08:34 DC 02/17/20 09:34 Sodium Chloride 1,000 ml @ 15 mls/hr Q24H IV 02/19/20 14:44 02/20/20 12:04 DC Sodium Chloride 1,000 ml @ 150 mls/hr Q6H40M IV 02/16/20 23:22 02/22/20 09:09 DC 02/22/20 04:02 Tramadol HCl (Ultram) 25 mg Q8HP PRN PO MODERATE PAIN (PS 5-7) 02/22/20 01:30 02/22/20 03:46 DC 02/22/20 01:32 Tramadol HCl (Ultram) 50 mg Q6HP PRN PO MILD PAIN (PS 1-4) 02/22/20 09:00 02/22/20 11:45 Tramadol HCl (Ultram) 50 mg Q8HP PRN PO MODERATE PAIN (PS 5-7) 02/22/20 03:45 02/22/20 04:00 DC Tramadol HCl (Ultram) 100 mg Q6HP PRN PO SEVERE PAIN (PS 8-10) 02/22/20 09:15 Allergies Coded Allergies: No Known Allergies (Verified Allergy, Unknown, 02/16/20) Ruthie Escobar MD Feb 22, 2020 17:25
[2020-02-22 22:00] VITALS: BP 133/76
[2020-02-23 02:00] VITALS: BP 133/75
[2020-02-23 06:00] VITALS: BP 151/96
[2020-02-23] MEDS: PIPERACILLIN/TAZOBACTAM SOD 3.375 GM in D5W MINI-BAG PLUS 50 ML IV SCH ×2 (06:00→12:13)
[2020-02-23] MEDS: LEVOTHYROXINE 50MCG TABLET (0.05MG) PO SCH (06:00)
[2020-02-23 07:48] LABS: HEMATOCRIT 39.5 % (36.0-47.0); MEAN CORPUSCULAR HEMOGLOBIN 30.2 pg (27.0-33.0); MEAN CORPUSCULAR HGB CONC 33.2 g/dl (32.0-36.5); PLATELET COUNT, AUTOMATED 432 10^3/uL (150-450); RED BLOOD COUNT 4.34 10^6/uL (4.00-5.40); WHITE BLOOD COUNT 11.6 10^3/uL (4.0-10.0)
[2020-02-23 07:54] LABS: BLOOD UREA NITROGEN 3 MG/DL (7-18); CALCIUM LEVEL 8.5 MG/DL (8.5-10.1); CARBON DIOXIDE LEVEL 32 MEQ/L (21-32); CHLORIDE LEVEL 106 MEQ/L (98-107); CREATININE FOR GFR 0.64 MG/DL (0.55-1.30); GLOMERULAR FILTRATION RATE > 60.0 (>51); GLUCOSE, FASTING 99 MG/DL (70-100); POTASSIUM SERUM 3.3 MEQ/L (3.5-5.1); SODIUM LEVEL 142 MEQ/L (136-145)
[2020-02-23 08:03] LABS: HEMOGLOBIN 13.1 g/dl (12.0-15.5)
[2020-02-23] MEDS: ENOXAPARIN 40MG/0.4ML SYRINGE (J1650 PER 10MG) SC SCH (09:00)
[2020-02-23] MEDS: ALVIMOPAN 12 MG CAPSULE (ENTEREG) PO SCH (09:00)
[2020-02-23] MEDS ORDERED: POTASSIUM CHLORIDE 10 MEQ SR TABLET PO ONE (09:00)
[2020-02-23] MEDS: IBUPROFEN 600MG TAB PO SCH ×3 (09:12→18:00)
[2020-02-23] MEDS: ROSUVASTATIN 10 MG TAB (CRESTOR) PO SCH (09:12)
[2020-02-23] MEDS: bisoproloL fumarate 5 MG TAB PO SCH (09:13)
[2020-02-23] MEDS: DIGOXIN 0.25 MG TAB PO SCH (09:13)
[2020-02-23 10:00] VITALS: BP 121/67
--- NOTE | 2020-02-23 12:54 | IPNPDOC ---
Text Note Date of Service The patient was seen on 02/23/20. NOTE SUBJECTIVE: -POD 4 colectomy w/ diverting colostomy. -Denies abdominal pain, chest pain, shortness of breath, fevers or chills. -Tolerating diet, doing well, per her discussion with surgery this morning, tentatively planning for discharge home tomorrow AM. OBJECTIVE: PHYSICAL EXAM: Vitals: Please see below General: Lying in bed, Speaking in full sentences, AAOx3 HEENT: NC, AT, PERRLA, corrective lenses in place CVS: RRR, +S1S2, No murmurs / rubs / gallops Lungs: Fair air entry bilaterally, No appreciable wheezing / rales / rhonchi Abdomen: 2 ESTUARDO drains, colostomy present with small amount of brown stool, incisions appear clean, nonsuppurative. Soft, nondistended abd, nontender on exam, BS + in 4 quadrants, no organomegaly Extremities: no extremity edema, No calf tenderness, WWP Neuro: No focal motor or sensory deficit Skin: No visible rashes, normal skin turgor Psych: mood and affect appropriate LABORATORY: WBC 11.6 Hgb 13.1 platelets 432 Na 142 K 3.3 (repleted) Cr 0.64 IMAGING: CT abd/pelvis 02/16/20: 1. 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 Small mass and mildly enlarged lymph nodes in the sigmoid mesocolon. 2. No signs of distant metastatic disease. 3. No other acute findings. ASSESSMENT/PLAN: Abdominal pain likely 2/2 stricture at sigmoid colon with ongoing malignancy workup with pending pathology -POD 4 colectomy, colostomy placement -Per surgery, highly suspicious for neoplasm, pathology sent -Colostomy bag with brown stool -Pathology pending -Pain resolved, tolerating diet -Day 6 of empiric IV zosyn to DC antibiotics tomorrow at discharge, pain regimen per surgery team, encouraging ambulation -Surgery primary service, expect home discharge tomorrow AM Hypokalemia, acute -K 3.3 (repleted) -F/u AM labs Chronic A. fib - Patient is currently in sinus rhythm - C/w digoxin and bisoprolol HTN - BP 140's systolic while on IVFs - C/w Bisoprolol with hold parameters DLP - C/w Rosuvastatin Hypothyroidism - C/w Levothyroxine ZOE on CPAP - Allow home CPAP use while inpatient GI prophylaxis - c/w Protonix DVT prophylaxis - TEDs/Sequentials and lovenox SC Resolved issues: Nausea/vomiting likely 2/2 to stricture at sigmoid colon vs. medication induced DISPOSITION: Per surgery, possibly discharge home tomorrow AM VS,Fishbone, I+O VS, Fishbone, I+O Laboratory Tests 02/22/20 12:58 02/23/20 07:17 Vital Signs Date Time Temp Pulse Resp B/P (MAP) Pulse Ox O2 Delivery O2 Flow Rate FiO2 02/23/20 10:00 97.6 67 18 121/67 (85) 97 Room Air 02/20/20 01:59 2.0 I&O- Last 24 Hours up to 6 AM 02/23/20 06:00 Intake Total 1530 ml Output Total 6630 ml Balance -5100 ml GHADA GANN MD Feb 23, 2020 12:54
[2020-02-23 14:00] VITALS: BP 126/64
[2020-02-23] MEDS: traMADol 50 MG TAB PO PRN (18:23)
[2020-02-23 22:00] VITALS: BP 125/74
[2020-02-24] MEDS: LEVOTHYROXINE 50MCG TABLET (0.05MG) PO SCH (05:39)
[2020-02-24 06:00] VITALS: BP 125/74
[2020-02-24] MEDS: DIGOXIN 0.25 MG TAB PO SCH (08:53)
[2020-02-24 08:54] VITALS: BP 127/73
[2020-02-24] MEDS: bisoproloL fumarate 5 MG TAB PO SCH (08:54)
[2020-02-24] MEDS: ROSUVASTATIN 10 MG TAB (CRESTOR) PO SCH (08:55)
[2020-02-24] MEDS: IBUPROFEN 600MG TAB PO SCH (08:55)
[2020-02-24] MEDS: ENOXAPARIN 40MG/0.4ML SYRINGE (J1650 PER 10MG) SC SCH (08:57)
[2020-02-24] MEDS ORDERED: TRAM50TA2 PO (09:33)
[2020-02-24 10:00] VITALS: BP 129/72
[2020-02-24] MEDS: traMADol 50 MG TAB PO PRN (11:36)
--- NOTE | 2020-02-24 15:29 | IPNPDOC ---
Text Note Date of Service The patient was seen on 02/24/20. NOTE SUBJECTIVE: -POD 5 colectomy w/ diverting colostomy. -Denies abdominal pain, chest pain, shortness of breath, fevers or chills. -Tolerating diet, doing well, getting discharged home by surgery this morning OBJECTIVE: PHYSICAL EXAM: Vitals: Please see below General: Lying in bed, Speaking in full sentences, AAOx3 HEENT: NC, AT, PERRLA, corrective lenses in place CVS: RRR, +S1S2, No murmurs / rubs / gallops Lungs: Fair air entry bilaterally, No appreciable wheezing / rales / rhonchi Abdomen: 2 ESTUARDO drains, colostomy present with small amount of brown stool, incisions appear clean. Soft, nondistended abd, nontender on exam, BS + in 4 quadrants Extremities: no extremity edema, No calf tenderness, WWP Neuro: No focal motor or sensory deficit Skin: No visible rashes, normal skin turgor Psych: mood and affect appropriate LABORATORY: reviewed. No labs this AM IMAGING: CT abd/pelvis 02/16/20: 1. 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 Small mass and mildly enlarged lymph nodes in the sigmoid mesocolon. 2. No signs of distant metastatic disease. 3. No other acute findings. ASSESSMENT/PLAN: Abdominal pain likely 2/2 stricture at sigmoid colon with ongoing malignancy workup with pending pathology -POD 5 colectomy, colostomy placement -Per surgery, highly suspicious for neoplasm, pathology sent, will follow up in clinic -Colostomy bag with brown stool -Pain resolved, tolerating diet -Day 7 of empiric IV zosyn to DC antibiotics now at discharge, pain regimen per surgery team, encouraging ambulation Hypokalemia: acute, repleted Chronic A. fib - Patient is currently in sinus rhythm - C/w digoxin and bisoprolol HTN - C/w Bisoprolol with hold parameters DLP - C/w Rosuvastatin Hypothyroidism - C/w Levothyroxine ZOE on CPAP - CPAP GI prophylaxis - c/w Protonix DVT prophylaxis - TEDs/Sequentials and lovenox SC while inpatient Resolved issues: Nausea/vomiting likely 2/2 to stricture at sigmoid colon vs. medication induced DISPOSITION: Home today per primary team. Medically stable. VS,Fishbone, I+O VS, Fishbone, I+O Vital Signs Date Time Temp Pulse Resp B/P (MAP) Pulse Ox O2 Delivery O2 Flow Rate FiO2 02/24/20 08:54 67 127/73 02/24/20 06:00 97.4 17 97 Room Air 02/20/20 01:59 2.0 I&O- Last 24 Hours up to 6 AM 02/24/20 06:00 Intake Total 1890 ml Output Total 3100 ml Balance -1210 ml GHADA GANN MD Feb 24, 2020 09:37
== END 2020-02-24 12:15 | disposition home or self-care (01) | DRG 221 ==
LOC: M ED 17:46 → M ED INP 23:22 → ENRESERV 23:47 → M MS5PR 02-17 00:20
PROVIDERS: ADMIT Surgery; ATTEND Surgery
PROC: 0DBN0ZX Excision of Sigmoid Colon, Open Approach, Diagnostic (ICD-10-PCS; 2020-02-19)
PROC: 0D1N4Z4 Bypass Sigmoid Colon to Cutaneous, Percutaneous Endoscopic Approach (ICD-10-PCS; principal; 2020-02-19 08:46)
DX: C18.7 Malignant neoplasm of sigmoid colon (principal); K56.609 Unspecified intestinal obstruction, unspecified as to partial versus complete obstruction; C77.2 Secondary and unspecified malignant neoplasm of intra-abdominal lymph nodes; I48.20 Chronic atrial fibrillation, unspecified; Z79.82 Long term (current) use of aspirin; Z79.899 Other long term (current) drug therapy; E03.9 Hypothyroidism, unspecified; I10 Essential (primary) hypertension; G47.33 Obstructive sleep apnea (adult) (pediatric); E87.6 Hypokalemia

== ENCOUNTER → 2020-03-25 | Outpatient (CLI) | payer BC ==
[~2020-03-25] MED LIST: ASPI-161 PO; ASPI81CH33 PO; BISO5TAB14 PO; CAPECITABINE PO; CRAN450T4 PO; DIGO0.253 PO; LEVO50TA5 PO; MIRA1POW3 PO; ONDA8TAB10 PO; PROC10TA4 PO; ROSU20TA5 PO; SIME1CAP PO; TRAM50TA2 PO
[2020-03-25 12:04] LABS: BASO # 0.1 10^3/uL (0.0-0.2); BASO % 0.5 % (0.0-1.0); EOS # 0.3 10^3/uL (0.0-0.5); EOS % 2.3 % (0.0-3.0); HEMATOCRIT 40.9 % (36.0-47.0); HEMOGLOBIN 13.2 g/dl (12.0-15.5); LYMPH # 2.5 10^3/uL (1.5-5.0); LYMPH % 21.1 % (24.0-44.0); MEAN CORPUSCULAR HEMOGLOBIN 30.1 pg (27.0-33.0); MEAN CORPUSCULAR HGB CONC 32.3 g/dl (32.0-36.5); MEAN CORPUSCULAR VOLUME 93.2 fl (80.0-96.0); MONO # 0.7 10^3/uL (0.0-0.8); MONO % 5.6 % (0.0-5.0); NEUTROPHILS # 8.4 10^3/uL (1.5-8.5); NEUTROPHILS % 70.2 % (36.0-66.0); PLATELET COUNT, AUTOMATED 391 10^3/uL (150-450); RED BLOOD COUNT 4.39 10^6/uL (4.00-5.40); WHITE BLOOD COUNT 11.9 10^3/uL (4.0-10.0)
[2020-03-25 12:52] LABS: BLOOD UREA NITROGEN 14 MG/DL (7-18); CALCIUM LEVEL 9.6 MG/DL (8.5-10.1); CARBON DIOXIDE LEVEL 27 MEQ/L (21-32); CHLORIDE LEVEL 105 MEQ/L (98-107); CHOLESTEROL LEVEL 165 MG/DL (<200); CHOLESTEROL RISK RATIO 3.055 (<5); CREATININE FOR GFR 0.67 MG/DL (0.55-1.30); GLOMERULAR FILTRATION RATE > 60.0 (>51); GLUCOSE, FASTING 102 MG/DL (70-100); HDL CHOLESTEROL 54 MG/DL (>40); LDL CHOLESTEROL 73 MG/DL (<100); NON-HDL-C 111 MG/DL; POTASSIUM SERUM 4.4 MEQ/L (3.5-5.1); SODIUM LEVEL 138 MEQ/L (136-145); TRIGLYCERIDES LEVEL 191 MG/DL (<150)
[2020-03-25 13:57] LABS: HEMOGLOBIN A1c 5.6 %
== END ==
LOC: M LAB 10:58
PROVIDERS: ATTEND Student in an Organized Health Care Education/Training Program
DX: E03.9 Hypothyroidism, unspecified (principal)

== ENCOUNTER → 2020-03-25 | Outpatient (CLI) | payer BC ==
[2020-03-25 12:08] LABS: BASO # 0.1 10^3/uL (0.0-0.2); BASO % 0.5 % (0.0-1.0); EOS # 0.3 10^3/uL (0.0-0.5); EOS % 2.4 % (0.0-3.0); HEMATOCRIT 40.1 % (36.0-47.0); HEMOGLOBIN 12.9 g/dl (12.0-15.5); LYMPH # 2.5 10^3/uL (1.5-5.0); LYMPH % 21.5 % (24.0-44.0); MEAN CORPUSCULAR HEMOGLOBIN 29.7 pg (27.0-33.0); MEAN CORPUSCULAR HGB CONC 32.2 g/dl (32.0-36.5); MEAN CORPUSCULAR VOLUME 92.4 fl (80.0-96.0); MONO # 0.7 10^3/uL (0.0-0.8); MONO % 5.8 % (0.0-5.0); NEUTROPHILS # 8.1 10^3/uL (1.5-8.5); NEUTROPHILS % 69.4 % (36.0-66.0); PLATELET COUNT, AUTOMATED 389 10^3/uL (150-450); RED BLOOD COUNT 4.34 10^6/uL (4.00-5.40); WHITE BLOOD COUNT 11.6 10^3/uL (4.0-10.0)
[2020-03-25 12:48] LABS: ALBUMIN 4.1 GM/DL (3.2-5.2); ALT/SGPT 42 U/L (12-78); BILIRUBIN,TOTAL 0.5 MG/DL (0.2-1.0); BLOOD UREA NITROGEN 15 MG/DL (7-18); CALCIUM LEVEL 9.6 MG/DL (8.5-10.1); CARBON DIOXIDE LEVEL 26 MEQ/L (21-32); CHLORIDE LEVEL 105 MEQ/L (98-107); CREATININE FOR GFR 0.74 MG/DL (0.55-1.30); GLOMERULAR FILTRATION RATE > 60.0 (>51); GLUCOSE, FASTING 103 MG/DL (70-100); POTASSIUM SERUM 4.4 MEQ/L (3.5-5.1); SODIUM LEVEL 139 MEQ/L (136-145); TOTAL PROTEIN 7.2 GM/DL (6.4-8.2)
== END ==
LOC: M LAB 10:53
PROVIDERS: ATTEND Specialist
DX: C18.9 Malignant neoplasm of colon, unspecified (principal)

== ENCOUNTER → 2020-04-10 | Outpatient (CLI) | payer BC ==
[~2020-04-10] MED LIST changes: +CAPE1TAB2 PO
== END ==
LOC: M LABSMTC 11:14
PROVIDERS: ATTEND Anesthesiology
DX: Z01.812 Encounter for preprocedural laboratory examination (principal); Z20.822 Contact with and (suspected) exposure to COVID-19

== ENCOUNTER 2020-04-15 06:57 | Day surgery (SDC) | payer BC ==
[~2020-04-15] VITALS: Ht 160 cm; Wt 79.0 kg
[2020-04-15] MEDS ORDERED: ceFAZolin SOD 2 GM in IV 1 EA IV ONE (07:00)
[2020-04-15] MEDS ORDERED: LR 1,000 ML IV ONE (07:00)
--- OUTSIDE RECORDS SUMMARY | 2020-04-15 07:01 | CCD | Summary of Care ---
Author Author [facility] Organization [facility] Address Unknown Phone Unavailable Care Team Providers Care Woods Boss Name Role Phone PCP Unavailable Encounter Details Care Team Description Date Type Department 02/25/2020 [facility] Anatomical Encounter Pathology at [place] [address] [place] [address] Allergies Not on Filedocumented as of this encounter (statuses as of 02/26/2020) Medications Not on filedocumented as of this encounter (statuses as of 02/26/2020) Active Problems Not on filedocumented as of this encounter (statuses as of 02/26/2020) Social History Date Tobacco Use Types Packs/Day Years Used Never Assessed Sex Assigned at Date Recorded Not on file documented as of this encounter Last Filed Vital Signs Not on filedocumented in this encounter Plan of Treatment Date/Time Name Type Priority Associated Diag noses 02/25/2020 3:09 PM EST Surgical pathology Pathology and Routine consult Cytology Order Schedule Name Type Priority Associated Diag noses Once for 1 Occurrences starting 02/25/20 20 until 02/25/2020 Surgical pathology Pathology and Routine consult Cytology Health Maintenance Due Date Last Done Comments Hepatitis C Screening (B. 1965 [id number]) MMR Vaccines (1 of - 1966 Standard series) Varicella Vaccines (1 of 1966 2 - 2-dose childhood series) DTaP,Tdap,and Td Vaccines 02/16/1972 (1 - Tdap) HIV Screening 1978 Cervical Cancer Screening 1986 5 years Breast Cancer Screening 2 2015 years Colon Cancer Screening 10 2015 yrs Influenza Vaccine 12/17/2019 Pneumococcal Vaccine: 65+ 2030 Years (1 of 1 - PPSV23) HIB Vaccines Aged Out No longer eligible based on patient's age to complete this topic Hepatitis A Vaccines Aged Out No longer eligibl e based on patient's age to complete this topic Hepatitis B Vaccines Aged Out No longer eligibl e based on patient's age to complete this topic IPV Vaccines Aged Out No longer eligible based on patient's age to complete this topic Pneumococcal Vaccine: Aged Out No longer eligib le based on patient's age to Pediatrics (0 to 5 Years) complete this topic and At-Risk Patients (6 to 64 Years) documented as of this encounter Results Not on filedocumented in this encounter
--- OUTSIDE RECORDS SUMMARY | 2020-04-15 07:01 | CCD | Continuity of Care Document ---
Author Author Selina PARKS MD Organization Unknown Address [address] [facility] [address] [place] [address] Phone [phone] Care Team Providers Care Gun Repair Clerk Name Role Phone West Ibrahim M.D. AUTM [phone] Alem Vega M.D. AUTM [phone] Gagan Hartman M.D. AUTM [phone] Problems Active Problems Provider Date Obstructive sleep apnea syndrome Benjamin Willams D.O. Onset: 07/03/2016 Essential hypertension Román Parks JR, MD Onset: 02/25/20 20 Social History Type Date Description Comments Sex Unknown ETOH Use Denies alcohol use Tobacco Use Start: Unknown Denies Smoking Recreational Drug Use Denies Drug Use Smoking Status Reviewed: 09/09/19 Denies Smoking Allergies, Adverse Reactions, Alerts Description No Known Drug Allergies Medications Active Medications SIG Qnty Indications Ordering Provide r Date Aspirin 81mg Tablets DR 1 tab po qd Unknown CPAP +8 [facility] Unknown Crestor 20mg Tablets 1 tab po qd Unknown Ibuprofen 200mg Tablets 1 tab po prn Unknown Lanoxin 0.25mg/ml Solution 1 po qd Unknown Levothyroxine Sodium 50mcg Tablets 1 tab po qd Unknown Bisoprolol Fumarate 5mg Tablets 1 po qd Unknown Cranberry Fruit 475mg Capsules 1 po qd Unknown Immunizations CPT Code Status Date Vaccine Lot # [id number] Given 01/11/2016 Influenza Virus Split 3 Yrs And Above For Intramuscular Use Vital Signs Date Vital Result Comment 03/02/2020 9:27am BP Systolic 152 mmHg BP Diastolic 86 mmHg Heart Rate 73 /min Height 62 inches 5'2" Weight 170.12 lb BMI (Body Mass Index) 31.1 kg/m2 [place] Body Weight 110 lb Weight 77.169 kg BSA (Body Surface Area) 1.78 m2 09/09/2019 2:53pm BP Systolic 118 mmHg BP Diastolic 70 mmHg Heart Rate 52 /min O2 % BldC Oximetry 98 % Body Temperature 97.4 F Height 62 inches 5'2" Weight 170.00 lb BMI (Body Mass Index) 31.1 kg/m2 [place] Body Weight 110 lb Weight 77.112 kg BSA (Body Surface Area) 1.78 m2 Results Description No Information Available Procedures Description No Information Available Medical Devices Description No Information Available Encounters Type Date Location Provider Dx Diagnosis Office Visit 09/09/2019 3:00p [facility] Benjamin randall D.O. G47.33 Obstructive sleep apnea (adult) (pediatr ic) Assessments Date Code Description Provider 09/09/2019 G47.33 Obstructive sleep apnea (adult) (pediatric) Benjamin Willams D.O. Plan of Treatment Future Appointment(s):* 09/12/2020 3:00 pm - Benjamin Willams D.O. at [facility]monary[facility]Th[facility]acic 09/09/2019 - Benjamin Willams D.O.* G47.33 Obstructive sleep apnea (adult) (pediatric) * * Follow up:* 1. Follow up in one year for ZOE. 15 minute. Functional Status Description No Information Available Mental Status Description No Information Available Referrals Description No Information Available
--- OUTSIDE RECORDS SUMMARY | 2020-04-15 07:01 | CCD | Continuity of Care Document ---
Author Author Selina PARKS MD Organization Unknown Address [address] [facility] [address] [place] [address] Phone [phone] Care Team Providers [employer] Person Name Role Phone West Ibrahim M.D. AUTM [phone] Alem Vega M.D. AUTM Gagan Hartman M.D. AUTM [phone] Jaya Crane M.D. AUTM Unavailable Problems Active Problems Provider Date Obstructive sleep apnea syndrome Benjamin Willams D.O. Onset: 07/03/2016 Essential hypertension Román Parks JR, MD Onset: 02/25/20 Social History Type Date Description Comments Sex [...] CPT Code Status Date Vaccine Lot # [id number] Given 01/11/2016 Influenza Virus Split 3 Yrs And Above For Intramuscular Use Vital Signs Date Vital Result Comment 04/06/2020 9:08am BP Systolic 150 mmHg BP Diastolic 80 mmHg Height 62 inches 5'2" Weight 176.00 lb With Boots BMI (Body Mass Index) 32.2 kg/m2 [place] Body Weight 110 lb Weight 79.834 kg BSA (Body Surface Area) 1.81 m2 03/02/2020 9:27am BP Systolic 152 mmHg BP Diastolic 86 mmHg Heart Rate 73 /min Height 62 inches 5'2" Weight 170.12 lb BMI (Body Mass Index) 31.1 kg/m2 [place] Body Weight 110 lb Weight 77.169 kg BSA (Body Surface Area) 1.78 m2 Results Description No Information Available Procedures Description No Information Available Medical Devices Description No Information Available Encounters Type Date Location Provider Dx Diagnosis Office Visit 03/02/2020 9:40a [facility] Román mahmood JR, MD Z43.3 Encounter for attention to colostomy C18.7 Malignant neoplasm of sigmoi d colon Z48.3 Aftercare following surgery for neoplasm Assessments Date Code Description Provider 03/02/2020 Z43.3 Encounter for attention to colos jermain Román Parks JR, MD 03/02/2020 C18.7 Malignant neoplasm of sigmoid co karina Román Parks JR, MD 03/02/2020 Z48.3 Aftercare following surgery for neoplasm Román Parks JR, MD Plan of Treatment Future Appointment(s):* 09/12/2020 3:00 pm - Benjamin Willams D.O. at [facility] Pulmonary/Thoracic 03/02/2020 - Román Parks JR, MD* Z43.3 Encounter for attention to colostomy * C18.7 Malignant neoplasm of sigmoid colon* Comments:* The pathology has been discussed with the patient at length. We've discussed the tumor and derrick status. We've discussed its implications and associated with this colon cancer and specifically have discussed referral on to oncology for further evaluation.We have also discussed Lenvpt-k-Qypl placement should this be n ecessary specifically the risks as well as benefits with Bbhfwp-f-Gyvb placement those including but not limited to infection bleeding damage to surrounding structures including nerve vessels and the lung and also possibilities of Rvcexy-r-Iywk dysfunction. The patient would like to proceed with this should this be necessary from an oncology standpoint. We will schedule this in the operating room for the patient should oncology so desire placement. The patient is status post colectomy. His incisions are healing well. Ileostomy is functioning well Without erythema or drainage or discharge. Overall has some minimal discomfort at the site but this has been improving as well. We have discussed typical postoperative recovery and course and specifically have discussed increasing the patient's activity slowly over the next few weeks.I've encouraged her to contact the office if he has increasing pain and discomfort and nausea vomiting or fever. He will contact our office if he develops any persistent GI complaints or has any questions or concerns. In addition he will contact the office if his postoperative silvina-incisional discomfort does not resolve/improve over the ensuing few weeks. * Z48.3 Aftercare following surgery for neoplasm Functional Status Description No Information Available Mental Status Description No Information Available Referrals Refer to Reason for Referral Status Appt Date Jaya Crane U. M.D. Closed 03/25/2020 [facility] [address] [place] [phone]
--- OUTSIDE RECORDS SUMMARY | 2020-04-15 07:02 | CCD ---
Author Author [facility] Organization [facility] Address Unknown Phone Unavailable Care Team Providers Care Spring Coiler Hand Name Role Phone Anju Parks JR, MD Unavailable Unavailable Anju Parks JR, MD Unavailable Unavailable Anju Parks JR, MD Unavailable Unavailable Anju Parks JR, MD Unavailable Unavailable Anju Parks JR, MD Unavailable Unavailable Anju Parks JR, MD Unavailable Unavailable Anju Parks JR, MD Unavailable Unavailable Anju Parks JR, MD Unavailable Unavailable Anju Parks JR, MD Unavailable Unavailable Anju Parks JR, MD Unavailable Unavailable Anju Parks JR, MD Unavailable Unavailable Anju Parks JR, MD Unavailable Unavailable Anju Parks JR, MD Unavailable Unavailable Anju Parks JR, MD Unavailable Unavailable Anju Parks JR, MD Unavailable Unavailable Anju Parks JR, MD Unavailable Unavailable Anju Parks JR, MD Unavailable Unavailable Anju Parks JR, MD Unavailable Unavailable Anju Parks JR, MD Unavailable Unavailable Anju Parks JR, MD Unavailable Unavailable Anju Parks JR, MD Unavailable Unavailable Anju Parks JR, MD Unavailable Unavailable Anju Parks JR, MD Unavailable Unavailable Anju Parks JR, MD Unavailable Unavailable Anju Parks JR, MD Unavailable Unavailable Anju Parks JR, MD Unavailable Unavailable Anju Parks JR, MD Unavailable Unavailable Kasey JR, J Román Unavailable Unavailable Kasey JR, J Román MD Unavailable Unavailable Kasey JR, J Román MD Unavailable Unavailable Kasey JR, J Román MD Unavailable Unavailable Kasey JR, J Román MD Unavailable Unavailable Kasey JR, J Román MD Unavailable Unavailable Kasey JR, J Román MD Unavailable Unavailable Kasey JR, J Román MD Unavailable Unavailable Kasey JR, J Román MD Unavailable Unavailable Kasey JR, J Román MD Unavailable Unavailable Kasey JR, J Román MD Unavailable Unavailable Kasey JR, J Román MD Unavailable Unavailable Kasey JR, J Román MD Unavailable Unavailable Kasey JR, J Román MD Unavailable Unavailable Kasey JR, J Román MD Unavailable Unavailable Kasey JR, J Román MD Unavailable Unavailable Kasey JR, J Román Unavailable Unavailable Kasey JR, J Román MD Unavailable Unavailable Kasey JR, J Román MD Unavailable Unavailable Kasey JR, J Román Unavailable Unavailable Kasey JR, J Román MD Unavailable Unavailable Kasey JR, J Román Unavailable Unavailable Kasey JR, J Román Unavailable Unavailable Kasey JR, J Román MD Unavailable Unavailable Kasey JR, J Román MD Unavailable Unavailable Kasey JR, J Román Unavailable Unavailable Kasey JR, J Román Unavailable Unavailable Kasey JR, J Román Unavailable Unavailable Kasey JR, J Román Unavailable Unavailable ADJAPONG, SHAWN Unavailable Unavailable SEARS, A JOSEF DO Unavailable Unavailable SEARS, A JOSEF DO Unavailable Unavailable SEARS, A JOSEF DO Unavailable Unavailable SEARS, A JOSEF DO Unavailable Unavailable SEARS, A JOSEF DO Unavailable Unavailable SEARS, A JOSEF DO Unavailable Unavailable SEARS, A JOSEF DO Unavailable Unavailable SEARS, A JOSEF DO Unavailable Unavailable SEARS, A JOSEF DO Unavailable Unavailable SEARS, A JOSEF DO Unavailable Unavailable SEARS, A JOSEF DO Unavailable Unavailable SEARS, A JOSEF DO Unavailable Unavailable SEARS, A JOSEF DO Unavailable Unavailable SEARS, A JOSEF DO Unavailable Unavailable SEARS, A JOSEF DO Unavailable Unavailable SEARS, A JOSEF DO Unavailable Unavailable SEARS, A JOSEF DO Unavailable Unavailable SEARS, A JOSEF DO Unavailable Unavailable SEARS, A JOSEF DO Unavailable Unavailable SEARS, A JOSEF DO Unavailable Unavailable SEARS, A JOSEF DO Unavailable Unavailable SEARS, A JOSEF DO Unavailable Unavailable SEARS, A JOSEF DO Unavailable Unavailable SEARS, A JOSEF DO Unavailable Unavailable SEARS, A JOSEF DO Unavailable Unavailable SEARS, A JOSEF DO Unavailable Unavailable SEARS, A JOSEF DO Unavailable Unavailable SEARS, A JOSEF DO Unavailable Unavailable SEARS, A JOSEF DO Unavailable Unavailable SEARS, A JOSEF DO Unavailable Unavailable SEARS, A JOSEF DO Unavailable Unavailable SEARS, A JOSEF DO Unavailable Unavailable SEARS, A JOSEF DO Unavailable Unavailable SEARS, A JOSEF DO Unavailable Unavailable SEARS, A JOSEF DO Unavailable Unavailable SEARS, A JOSEF DO Unavailable Unavailable SEARS, A JOSEF DO Unavailable Unavailable SEARS, A JOSEF DO Unavailable Unavailable SEARS, A JOSEF DO Unavailable Unavailable SEARS, A JOSEF DO Unavailable Unavailable SEARS, A JOSEF DO Unavailable Unavailable SEARS, A JOSEF DO Unavailable Unavailable SEARS, A JOSEF DO Unavailable Unavailable SEARS, A JOSEF DO Unavailable Unavailable SEARS, A JOSEF DO Unavailable Unavailable SEARS, A JOSEF DO Unavailable Unavailable LAWS, DR DIAZ CANH Unavailable Unavailable Re-disclosure Warning The records that you are about to access may contain information from federally-assisted alcohol or drug abuse programs. If such information is present, then the following federally mandated warning applies: This information has been disclosed to you from records protected by federal confidentiality rules (42 CFR part 2). The federal rules prohibit you from making any further disclosure of this information unless further disclosure is expressly permitted by the written consent of the person to whom it pertains or as otherwise permitted by 42 CFR part 2. A general authorization for the release of medical or other information is NOT sufficient for this purpose. The Federal rules restrict any use of the information to criminally investigate or prosecute any alcohol or drug abuse patient.The records that you are about to access may contain highly sensitive health information, the redisclosure of which is protected by Article 27-F of the [facility] Public Health law. If you continue you may have access to information: Regarding HIV / AIDS; Provided by facilities licensed or operated by the [facility] Office of Mental Health; or Provided by the [facility] Office for People With Developmental Disabilities. If such information is present, then the following [facility] mandated warning applies: This information has been disclosed to you from confidential records which are protected by state law. State law prohibits you from making any further disclosure of this information without the specific written consent of the person to whom it pertains, or as otherwise permitted by law. Any unauthorized further disclosure in violation of state law may result in a fine or fci sentence or both. A general authorization for the release of medical or other information is NOT sufficient authorization for further disc losure. Allergies and Adverse Reactions Type Description Substance Reaction Status Data Source(s ) Drug allergy NKDA - NO KNOWN DRUG ALLERGIES NKDA - NO KNOWN DRUG MARY RGIES [facility] Drug allergy PCN (penicillin) PCN (penicillin) NAUSEA MODERATE [facility] Family History Family Member Name Family Member Gender Family Member Status Date o f Status Description Data Source(s) Unknown Unknown Problem [facility] ([facility]) Unknown Male Problem [facility] ([facility], ) Encounters Encounter Providers Location Date Indications Data Source(s ) Outpatient Attender: DR DEJA White er: DR DEJA LAWSReferrer: DR SHORT TRANConsultant: DR DEJA LAWS 03/22/2020 01:01:00 PM ES T - 03/22/2020 02:00:00 PM EST Health check up [facility] Health check up Patient discharged. Office Visit Attender: Román Vivar/Tommie/Anthony/Rein dl 03/02/2020 08:40:00 AM EST [facility] ([facility], ) Outpatient Admitter: SHAWN DORADOReferrer: SHAWN DORADO 02/25/2020 12:00:00 AM EST Malignant neoplasm of colon, unspecified [facility] [place] Malignant neoplasm of colon, unspecified Outpatient Attender: JOSEF Barrientos/Tommie/Anthony/Reindl 09/09/2019 03:00:00 PM EDT MED[facility] ([facility], ) Medications Medication Brand Name Start Date Product Form Dose Route Admi nistrative Instructions Pharmacy Instructions Status Indications Reaction Description Data Source(s) Levothyroxine Sodium 0.05 MG Oral Tablet Levothyroxine 50MCG Oral Tablet Levothyroxine 50MCG Oral Tablet 03/22/2020 12:00:00 AM EST 1 TABLET O RAL active Levothyroxine 50MCG Oral Tablet 03/22/2020 Unknown ORAL DAILY 1 TABLET 376329 [facility] Aspirin 81 MG Delayed Release Oral Table t Aspirin 81MG Oral Tablet, Enteric Coated Aspirin 81MG Oral Tablet, Enteric Coated 03/22/2020 12:00:00 AM EST 1 TABLET ORAL active Aspirin 81MG Oral Tablet , Enteric Coated 03/22/2020 Unknown ORAL DAILY 1 TABLET 563375 [facility] Bisoprolol Fumarate 5 MG Oral Tablet Bisoprolol Fumara te 5MG Oral Tablet Bisoprolol Fumarate 5MG Oral Tablet 03/22/2020 12:00:00 AM EST 1 TA BLET ORAL active Bisoprolol Fumarate 5MG Oral Tablet Unknown ORAL DAILY 1 TABLET 834792 [facility] Rosuvastatin calcium 20 MG Oral Tablet [Crestor] Crest or 20MG Oral Tablet Crestor 20MG Oral Tablet 03/22/2020 12:00:00 AM EST 1 TABLET ORAL active Crestor 20MG Oral Tablet 03/22/2020 Unknown ORAL DAILY [id number] [facility] Digoxin 0.25 MG Oral Tablet Digoxin 0.25MG Oral Tablet Digoxin 0.25MG Oral Tablet 03/22/2020 12:00:00 AM EST 1 TABLET ORAL active Digoxin 0.25MG Oral Tablet 03/22/2020 Unknown ORAL DAILY [address] [facility] Cranberry With Vitamin C 60 MG-250 MG Oral Capsule, Liquid F illed 03/22/2020 12:00:00 AM EST 1 CAPSULE ORAL active Cranberry With Vitamin C 60 MG- 250 MG Oral Capsule, Liquid Filled 03/22/2020 Unknown ORAL DAILY [address] [facility] Ibuprofen 600 MG Oral Tablet Ibuprofen 600MG Oral Tabl et Ibuprofen 600MG Oral Tablet 03/22/2020 12:00:00 AM EST 1 TABLET ORAL active Ibuprofen 600MG Oral Tablet 03/22/2020 Unknown ORAL DAILY [address] [facility] 50 mg 02/24/2020 12:00:00 AM EST tablet 20 TAKE ONE TABLET BY MOUTH EVERY 4 HOURS NEEDED FOR MILD PAIN MAXIMUM DAILY DOSE = 6 TAKE ONE TABLET BY MOUTH EVERY 4 HOURS NEEDED FOR MILD PAIN MAXIMUM DAILY DOSE = 6 SOLD: 02/24/2020 [facility] POLYETHYLENE GLYCOL 3350 142 MG/ML Oral Solution [Miralax] M iralax 08/27/2019 12:00:00 AM EDT active [place] RON ([facility]) Insurance Providers Payer name Policy type / Coverage type Policy ID Covered libertarian ID Covered libertarian's relationship to rosales Policy [place] Plan Information [place] 302/307 [id number] SP [id number] EXCELLUS BLUECROSS/[place]UES[place]-CLINIC [id number] undefined [id number] [place] 306/806 [id number] SP [id number] EXCELLUS BCBS B [id number] S VYS [id number] EXCELLUS H [id number] Self [id number] EXCELLUS [place] [id number] S [id number] BCBS Excell[place] U/W Commercial [id number] Self [id number] BCBS Excell[employer] U/W Commercial [id number] Self [id number] [place] 306/806 [id number] SP [id number] Excellus BCBS Medigap Part B [id number] Self [id number] [place] Choice Plus Commercial [id number] Self [id number] UNHC [place] CHOICE PLUS [id number] SP [id number] BCBS [employer] Ppo U/W Commercial Self BLUE CROSS -CLINIC [id number] 1 [id number] [place] 306/806 [id number] SP [id number] BC/BS [place] Commercial Self BLUE CROSS -O/P [id number] 18 [id number] [place] PPO 302/307 [id number] SP [id number] SELF PAY UNAVAILABLE SP UNAVAILA BLE PMA MANAGEMENT [place] [facility] [id number] SP [id number] Problems, Conditions, and Diagnoses Code Display Name Description Problem Type Effective Dates Data Source(s) 65582348 Essential hypertension Essential hypertension Problem 02/25/2020 12:00:00 AM QUINTON HURLEY ([facility], ) Z1389 Encounter for screening for other disord er Encounter for screening for other disorder Diagnosis 03/22/2020 01:01:00 PM [facility] G4733 Obstructive sleep apnea (adult) (pediatr ic) Obstructive sleep apnea (adult) (pediatric) Diagnosis 03/22/2020 01:01:00 PM [facility] E039 Hypothyroidism, unspecified Hypothyroidism, unspecifie d Diagnosis 03/22/2020 01:01:00 PM [facility] E785 Hyperlipidemia, unspecified Hyperlipidemia, unspecifie d Diagnosis 03/22/2020 01:01:00 PM [facility] I10 Essential (primary) hypertension Essential (primary) h ypertension Diagnosis 03/22/2020 01:01:00 PM [facility] E119 Type 2 diabetes mellitus without complic ations Type 2 diabetes mellitus without complications Diagnosis 03/22/2020 01:01:00 PM [facility] I4891 Unspecified atrial fibrillation Unspecified atrial fib rillation Diagnosis 03/22/2020 01:01:00 PM [facility] C189 Malignant neoplasm of colon, unspecified Malignant neoplasm of colon, unspecified Diagnosis 03/22/2020 01:01:00 PM [facility] C18.9 Malignant neoplasm of colon, unspecified Malignant neoplasm of colon, unspecified Diagnosis 02/25/2020 03:07:00 PM [facility] Results ID Date Data Source [id number] 04/10/2020 10:30:00 AM [facility] Name Value Range Interpretation Code Description Data Saba rce(s) Supporting Document(s) SARS coronavirus [address] [facility] This lab was ordered by [facility] and reported by [facility]. ID Date Data Source [id number] 03/09/2020 07:54:00 AM [facility] Anatomic Molecular Pathology ReportName: BARBIE DELA CRUZMRN: [id number] Number: [id number] Date: 02/25/2020 00:00Received Date: 02/26/2020 13:41Physician(s): SHAWN DORADO MD ADJAPONG, OPOKU, MDSpecimen(s) ReceivedA: Blocks received for consultation, Formalin Block [id number] A1 [facility] in [place], [place] NRASDiagnosisTESTS: NRAS gene mutation at codon 12 and 13 of exon 2 and codon 61 ofexon 3 by [place] DNA sequencing.RESULTS: No NRAS gene mutations were identified at codon 12, 13 or 61.INTERPRETATION: NEGATIVE FOR NRAS GENE MUTATION. Mutations at codon 12, 13 or 61 of NRAS gene may predict responsiveness totherapy targeting the MAP kinase pathway in many types of tumor.Interpretation of NRAS result depends on the tissue tested. In colorectalcarcinoma, the mutations may indicate lack of response to EGFR inhibition.In melanoma, however, the mutations may indicate whether a tumor is likelyto respond to therapy that targets the MAP kinase pathway. These resultsare adjuncts to other clinical and pathologic information for evaluationof therapeutic response. kz/ jajElectronically Signed By Louis Escalona M.D. Attending Pathologist 03/09/2020 07:54:18Gross DescriptionMETHODOLOGY:NRAS mutations at codons 12, 13, and 61 were detected on paraffin embeddedtissues by [place] DNA sequencing (chain terminator sequencing). The tumorarea is identified by the attending pathologist and manuallymicrodissected. An amplicon of 255bp containing codons 12 and 13, and anamplicon of 278bp containing codon 61 were amplified using PCR and, ifneeded, CONTINUING EDUCATION DIRECTOR (locked nucleic acid) PCR technique. The amplicon was directlysequenced using the BigDye XTerminator cycle sequencing kit ([employer]) and analyzed on VIJAY 3500 Genetic Analyzer in duplicates. Theanalytical sensitivity (low limit of detection) of the assay isapproximately 25% of cells with mutation. Test development and its performance characteristics were determined bythe [facility], and have beenauthorized for clinical use by [facility]. Thetest has not been cleared or approved by the U.S. Food and DrugAdministration. The analyte specific reagents used in this assay do notrequire FDA approval. REFERENCES:1. De Nasrin W, Deion B, Aimee D, De Deandra J, Alexander B,Martin G, Ryan THOMAS, et al. (2010) Effects of KRAS, BRAF, NRAS, [id number] mutations on the efficacy of cetuximab plus chemotherapy inchemotherapy-refractory metastatic colorectal cancer: a retrospectiveconsortium analysis. Lancet Oncol. 11(8):753-62. 2. Shira Messina.,Zenia,Daniel Valenzuela AlvaradoGCet al.(2011) NRAS mutation status is an independent prognostic factor inmetastatic melanoma.Cancer 118:420201.This report may include one or more immunohistochemical stain results thatuse analyte specific reagents. All positive and negative controls havebeen reviewed by the attending pathologist and are satisfactory. The testswere developed and their performance characteristics determined by [facility] Pathology department. They have not been cleared or approved by the USFood and Drug Administration. The FDA has determined that such clearanceor approval is not necessary. Name Value Range Interpretation Code Description Data Saba rce(s) Supporting Document(s) ID Date Data Source [id number] 03/09/2020 07:43:00 AM [facility] Anatomic Molecular Pathology ReportName: BARBIE DELA CRUZMRN: [id number] Number: [id number] Date: 02/25/2020 00:00Received Date: 02/26/2020 13:40Physician(s): SHAWN DORADO MD ADJAPONG, OPOKU, MDSpecimen(s) ReceivedA: Blocks received for consultation, Formalin Block [id number] A1 [facility] in [place], [place] KRAS Mutation AnalysisDiagnosisTEST:KRAS gene mutations by therascreene RGQ real-time PCR (polymerase chainreaction).RESULTS:No KRAS mutations were detected.INTERPRETATION: NEGATIVE FOR KRAS GENE MUTATION.The assay is intended to aid in the identification of patients withcolorectal carcinoma (CRC) for anti-EGFR therapy with Erbituxe (cetuximab)or Vectibix (panitumumab). The patients with KRAS mutations, identifiablein approximately 40% CRC, show resist ance to the anti-EGFR therapy. Theseven mutations (G12S, G12R, G12C, G12D, G12A, G12V, G13D) detected bythis assay account for >97% of all reported KRAS mutations in CRCpatients. Less than 7% mutant in wild-type DNA may not be de tected. Theresults are adjuncts to other clinical and pathologic information forevaluating the therapeutic response. cyndi/ kgElectronically Signed By Louis Escalona M.D. Attending Pathologist 03/09/2020 07:43:22Gross DescriptionMETHODOLOGY: The therascreen KRAS RGQ PCR Kit is a real-time qualitative PCR assayused on the Cuiker instrument for the detection of seven somaticmutations in the human KRAS oncogene, using DNA extracted fromformalin-fixed paraffin-embedded (FFPE) colorectal cancer (CRC) tissue. The tumor area is identified by the pathologist and is manuallymicrodissected.The assay uses Scorpionse and ARMSe (Allele RefractoryMutation System) technologies, and is FDA-approved for clinical patientcare. Allele-specific amplification is achieved by ARMS which exploitsthe ability of Taq DNA polymerase to distinguish between a matched and amismatched base at the 3' end of a PCR primer. Detection of amplificationis performed using Scorpions, bifunctional molecules containing a PCRprimer covalently linked to a probe.REFERENCES:1. BARB Blakely, Jyoti BRADFORD, Tabatha MR, et al. [place] Societyof Clinical Oncology provisional clinical opinion: testing for KRAS genemutations in patients with metastatic colorectal carcinoma to predictresponse to anti-epidermal growth factor receptor monoclonal antibodytherapy. J Clin Oncol 27:7068-9390, 2009. 2. Marlen S , Tammy Otto , LG Sarah, et al.Biomarkers predicting clinical outcome of epidermal growth factor receptortargeted therapy in metastatic colorectal cancer. J Natl Cancer Gazh073:30796470, 2009.This report may include one or more immunohistochemical stain results thatuse analyte specific reagents. All positive and negative controls havebeen reviewed by the attending pathologist and are satisfactory. The testswere developed and their performance characteristics determined by [facility] Pathology department. They have not been cleared or approved by the USFood and Drug Administration. The FDA has determined that such clearanceor approval is not necessary. Name Value Range Interpretation Code Description Data Saba rce(s) Supporting Document(s) ID Date Data Source [id number] 03/07/2020 08:56:00 AM [facility] Anatomic Molecular Pathology ReportName: BARBIE DELA CRUZMRN: [id number] Number: [id number] Date: 02/25/2020 00:00Received Date: 02/26/2020 13:42Physician(s): SHAWN DORADO MD ADJAPONG, OPOKU, MDSpecimen(s) ReceivedA: Blocks received for consultation, Formalin Block [id number] [facility] [place] [place] BRAF Mutation AnalysisDiagnosisTESTS:BRAF V600E mutation (1799 T>A) at exon 15 by real time PCR.RESULTS:Wild type probe (yellow gain): Ct value and end-point fluorescence are29.33 and 0.791 respectively.Mutant probe (green gain): Ct value and end- point fluorescence are 45.00and 0.079 respectively.(Mutant probe EPF cut-off value: 0.186)INTERPRETATION:NEGATIVE FOR BRAF V600E MUTATION.BRAF V600E (1799 T>A) mutation at exon 15 is a genetic alterationidentified in a variety of neoplasm and present in approximately 5-10% ofcolon adenocarcinoma. BRAF V600E in colon adenocarcinoma is associatedwith resistance to anti-EGFR targeted therapy, and can be used as abiomarker to exclude Camargo syndrome (HNPCC) as well. The test result isconsidered positive if the Ct value (mutant probe) is less than 45 and theEPF is higher than cut-off value. If the percentage of mutant DNA is lessthan 10% in a background of wild-type DNA, the mutation may not bedetected by this assay. This result is an adjunct to other clinical andpathologic information for appropriate patient management.laverne/miguelElectronically Signed By Bennett Haley M.D. Attending Pathologist 03/07/2020 08:56:08Reported at [address] [place] [address]. Gross DescriptionMETHODOLOGY:BRAF V600E(1799 T>A) mutation at exon 15 is detected by real time PCRusing allele-specific TaqMan probes and performed on paraffin embeddedtissues. The tumor area is identified by the pathologist and is manuallymicrodissected. The mutant probe was labeled with a FAM-fluorophore whilethe wild-type probe with a CHILO-fluorophore. The amount of fluorescentemissions rendered by specific probe hybridization was associated the amounts of PCR products, and analyzed by Graphicly Q real timeinstrument. The analytical sensitivity (or minimum percentage of mutantDNA needed) is approximately 10% given sufficient DNA input. Test development and its performance characteristics were determined bythe [facility], and has beenauthorized for clinical use by [facility]. Thetest has not been cleared or approved by the U.S. Food and DrugAdministration. The analyte specific reagents used in this assay do notrequire FDA approval. REFERENCES: 1. Bhaskar S, Marisa Lim, et al. Detection of BRAF G356Nwydvrpid in colorectal cancer-comparison of automatic sequencing and realtime chemistry methodology. J Mol Diagn. 2006; 8:499306.2. Chester L, Ian TJ, Tc N, et al. BRAF mutation analysis in fineneedle aspiration (FNA) cytology of the thyroid. Diagn Mol Pathol.2006;15:997544.3. Alin PK, Pablo ME, Ludy M, et al. Clinical characteristics ofpatients with lung adenocarcinomas harboring BRAF mutations. J Clin Oncol.2011;29:9946-9562.This report may include one or more immunohistochemical stain results thatuse analyte specific reagents. All positive and negative controls havebeen reviewed by the attending pathologist and are satisfactory. The testswere developed and their performance characteristics determined by [facility] Pathology department. They have not been cleared or approved by the USFood and Drug Administration. The FDA has determined that such clearanceor approval is not necessary. Name Value Range Interpretation Code Description Data Saba rce(s) Supporting Document(s) ID Date Data Source [id number] 02/26/2020 06:40:00 PM [facility] Surgical Pathology ReportName: HARISH DELA CRUZMRN: [id number] Number: [id number] Date: 02/25/2020 00:00Received Date: 02/25/2020 15:09Physician(s): SHAWN DORADO MD ADJAPONG, OPOKU, MDSpecimen(s) ReceivedA: Blocks only received for consultationClinical HistoryPlease do MMR, KRAS, NRAS, BRAF.DiagnosisOUTSIDE BLOCK [id number], 02/22/20:Results of Immunohistochemistry for Mismatch Repair Protein (MMR): MLH-1: Expressed (Normal) PMS2: Expressed (Normal) MSH-2: Expressed(Normal) MSH-6: Expressed (Normal) Interpretation: No Deficiency of the Mismatch Repair Protein identified. See Comment.Comment:Although normal MMR expression indicates that Camargo syndrome is lesslikely to be the cause of colorectal cancer, the result does not rule outLynch syndrome or other related hereditary cancer syndrome. If there issignificant personal and/or family history of colorectal and /or othercancers, genetic counseling should be considered. Molecular studies forKRAS, NRAS, and BRAF are pending, and will be reported separately. Electronically Signed By Louis Escalona M.D., Attending Bybktvzinfw30/11/2020 18:40:42 Unless 'gross-only' is specified, the final diagnosis is based on amicroscopic examination of telesales representative sections of tissue.Gross DescriptionReceived [facility] [place], [place], is one paraffinblock, labeled [id number], with the corresponding pathology report. This report may include one or more immunohistochemical stain results thatuse analyte specific reagents. All positive and negative controls havebeen reviewed by the attending pathologist and are satisfactory. The testswere developed and their performance characteristics determined by [facility] Pathology department. They have not been cleared or approved by the USFood and Drug Administration. The FDA has determined that such clearanceor approval is not necessary. Name Value Range Interpretation Code Description Data Saba rce(s) Supporting Document(s) ID Date Data Source [id number] 02/16/2020 09:06:00 PM EST [facility] Name Value Range Interpretation Code Description Data Saba rce(s) Supporting Document(s) SARS coronavirus 2 RNA [Presence] in Res piratory specimen by KATHRIN with probe detection [facility] This lab was ordered by [facility] a nd reported by [facility]. ID Date Data Source [id number] 08/24/2019 01:36:00 PM EDT [facility] ([facility] Name Value Range Interpretation Code Description Data Saba rce(s) Supporting Document(s) Free T4 1.18 [facility] Hemoglobin A1c/Hemoglobin.total in Blood 6.1 [facility] ([facility]) Digoxin [Mass/volume] in Serum or Plasma 1.0 [facility] ([facility]) Thyroid Stimulating Hormone 2.370 ME [facility] ([facility]) ID Date Data Source [id number] 08/24/2019 01:36:00 PM EDT [facility] ([facility]) Name Value Range Interpretation Code Description Data Saba rce(s) Supporting Document(s) Alanine aminotransferase [Enzymatic activity/volume] in Serum or Pl asma 45 [facility] ([facility]) Calcium [Mass/volume] in Serum or Plasma 9.5 [facility] ([facility]) Albumin [Mass/volume] in Serum or Plasma 4.2 [facility] ([facility]) Chloride [Moles/volume] in Serum or Plasma 102 [facility] ([facility]) Alkaline phosphatase [Enzymatic activity/volume] in Serum or Plasma 8 4 [facility] ([facility]) Carbon dioxide, total [Moles/volume] in Serum or Plasma 29 [facility] ([facility]) Potassium [Moles/volume] in Serum or Plasma 4.1 [facility] ([facility]) Sodium 137 [facility] ([facility] Protein [Mass/volume] in Serum or Plasma 7.4 [facility] ([facility]) Aspartate aminotransferase [Enzymatic activity/volume] in Serum or Plasma 20 [facility] ([facility]) Glucose 87 70-100 [facility] ([facility]) Creatinine For GFR 0.76 [facility] ([facility] Urea nitrogen [Mass/volume] in Serum or Plasma 16 [facility] ([facility]) ID Date Data Source [id number] 08/24/2019 01:36:00 PM EDT [facility] ([facility]) Name Value Range Interpretation Code Description Data Saba rce(s) Supporting Document(s) White Blood Count 12.4 4.0-10.0 [facility] ([facility]) Red Blood Count 4.44 4.00-5.40 [facility] ([facility]) Hematocrit 40.9 [facility] ([facility]) Hemoglobin 13.4 [facility] ([facility]) Platelets 415 150-450 [facility] ([facility] Procedure Social History Code Duration Value Status Description Data Source(s ) Smoking 09/09/2019 12:00:00 AM EDT Patient has never smoked co mpleted Patient has never smoked [facility] ([facility]) Smoking 08/28/2019 12:00:00 AM EDT Patient has never smoked co mpleted Patient has never smoked [facility] ([facility]) Vital Signs ID Date Data Source UNK Name Value Range Interpretation Code Description Data Source(s) Body surface area Derived from formula 1.81 m2 1.81 m[address] [facility] ([facility]) Body weight 79.834 kg 79.834 [facility] [place] body weight 110 [lb_av] 110 [lb_av] [facility] T ([facility]) Body mass index (BMI) [Ratio] 32.2 kg/m2 32.2 k g/m2 [facility] ([facility]) Body weight 176.00 [lb_av] 176.00 [lb_av] [facility] T ([facility]) With Boots Body height 62 [in_i] 62 [in_i] [facility] ([facility]) 5'2" Diastolic blood pressure 80 mm[Hg] 80 mm[Hg] [facility] ([facility]) Systolic blood pressure 150 mm[Hg] 150 mm[Hg] [facility]) Body weight 77.56 kg 77.56 kg [facility] Body temperature 37.4 Fatouamta 37.4 Fatoumata [facility] Respiratory rate 18 /min 18 /min [facility] Heart rate 72.0 /min 72.0 /min [facility] Oxygen saturation in Arterial blood by Pulse oximetry 98 % 98 % [facility] Body height 160.0200 cm 160.0200 cm [facility] Body surface area Derived from formula 1.86 m2 1.86 m2 [facility] Diastolic blood pressure 76 mm[Hg] 76 mm[Hg] [facility] Systolic blood pressure 124 mm[Hg] 124 mm[Hg] [facility] Body mass index (BMI) [Ratio] 30.29 kg/m2 30.29 kg/m2 [facility] Body surface area Derived from formula 1.78 m2 1.78 m[address] [facility] ([facility]) Body weight 77.169 kg 77.169 [address] [facility] ([facility]) [place] body weight 110 [lb_av] 110 [lb_av] [facility] ([facility]) Body mass index (BMI) [Ratio] 31.1 kg/m2 31.1 k g/m2 [facility] ([facility]) Body weight 170.12 [lb_av] 170.12 [lb_av] [facility] ([facility]) Body height 62 [in_i] 62 [in_i] [facility] ([facility]) 5'2" Heart rate 73 /min 73 /min [facility] ([facility]) Diastolic blood pressure 86 mm[Hg] 86 mm[Hg] [facility] ([facility]) Systolic blood pressure 152 mm[Hg] 152 mm[Hg] [facility] ([facility]) Body surface area Derived from formula 1.78 m2 1.78 m[address] [facility] ([facility]) Body weight 77.112 kg 77.112 kg [facility] ([facility]) [place] body weight 110 [lb_av] 110 [lb_av] [facility] Body mass index (BMI) [Ratio] 31.1 kg/m2 31.1 k g/m2 [facility] ([facility]) Body weight 170.00 [lb_av] 170.00 [lb_av] [facility] Body height 62 [in_i] 62 [in_i] [facility] ([facility]) 5'2" Body temperature 97.4 [degF] 97.4 [degF] [facility] ([facility]) Oxygen saturation in Arterial blood by Pulse oximetry 98 % 98 % [facility] ([facility]) Heart rate 52 /min 52 /min [facility] ([facility]) Diastolic blood pressure 70 mm[Hg] 70 mm[Hg] [facility] ([facility]) Systolic blood pressure 118 mm[Hg] 118 mm[Hg] [facility] ([facility]) Diastolic blood pressure--sitting 78 mm[Hg] 78 mm[Hg] [facility] large cuff, Ra Systolic blood pressure--sitting 122 mm[Hg] 122 mm[Hg] [facility]) large cuff, Ra Heart rate 47 /min 47 /min [facility] ([facility]) Body mass index (BMI) [Ratio] 30.5 kg/m2 30.5 k g/m2 [facility] ([facility]) Body height 63 [in_i] 63 [in_i] [facility]) 5'3" Body weight 172.00 [lb_av] 172.00 [lb_av] SHORTY Chaves ([facility]) Patient Treatment Plan of Care Planned Activity Planned Date Details Description Data Source (s) Levothyroxine Sodium 0.05 MG Oral Tablet 03/22/2020 12:00:00 AM [facility] Ibuprofen 600 MG Oral Tablet 03/22/2020 12:00:00 AM [facility] Digoxin 0.25 MG Oral Tablet 03/22/2020 12:00:00 AM [facility] Rosuvastatin calcium 20 MG Oral Tablet [Crestor] 03/22/2020 12:00:0 0 AM [facility] Cranberry With Vitamin C 60 MG-250 MG Oral Capsule, Li quid Filled 03/22/2020 [facility] F[facility] 5 MG Oral Tablet 03/22/2020 12:00:00 AM [facility] Aspirin 81 MG Delayed Release Oral Tablet 03/22/2020 12:00:00 AM JEMAL Chaves [facility]
[2020-04-15] MEDS ORDERED: propofoL 200 MG/20 ML VIAL As Ordered ONE (08:19)
[2020-04-15] MEDS ORDERED: LIDOCAINE 2% 100MG/5ML SDV (FOR ANES.) As Ordered ONE (08:19)
[2020-04-15] MEDS ORDERED: MIDAZOLAM INJ 2MG/2ML VIAL (J2250 PER 1MG) As Ordered ONE (08:20)
[2020-04-15] MEDS ORDERED: dexameTHASONE 4 MG/ML 1ML VIAL (J1100 PER 1MG) As Ordered ONE (08:20)
[2020-04-15] MEDS ORDERED: ONDANSETRON 4MG/2ML VIAL As Ordered ONE (08:20)
[2020-04-15] MEDS ORDERED: fentaNYL 100 MCG/2 ML INJECTION (J3010) As Ordered ONE (08:20)
[2020-04-15] MEDS ORDERED: BUPIVACAINE HCL 0.5% 30 ML VIAL As Ordered ONE (08:54)
[2020-04-15] MEDS ORDERED: LIDOCAINE 1% SDV 30ML VIAL As Ordered ONE (08:54)
[2020-04-15] MEDS ORDERED: HEPARIN SOD (PORCINE) 5000UNITS/ML 1ML VIAL/SYRINGE As Ordered ONE (08:54)
[2020-04-15] MEDS ORDERED: ePHEDrine SULFATE 25 MG/5 ML(5MG/ML) SYRINGE As Ordered ONE (09:44)
[2020-04-15] MEDS ORDERED: KETOROLAC 60MG 2ML VIAL As Ordered ONE (09:53)
--- NOTE | 2020-04-15 10:35 | REP ---
INDICATION: NEED FOR CHEMOTHERAPY ACCESS. COMPARISON: None. TECHNIQUE: Three views. 2.9 seconds of fluoroscopy time is reported. FINDINGS: A sequence of 3 last image hold fluoroscopically obtained spot radiographs of the chest document Xrvkml-T-Mckl catheter placement. IMPRESSION: Procedural imaging. <Electronically signed by Elias Sinha > 04/15/20 1039
--- NOTE | 2020-04-15 10:36 | REP ---
INDICATION: POST OP INFUSAPORT INSERTION. COMPARISON: Comparison chest x-ray February 19, 2020.. TECHNIQUE: Portable upright AP radiograph. FINDINGS: There is a left-sided Auhdkn-A-Ytip catheter in place with its tip in the expected location of superior vena cava. There is no evidence of pneumothorax or hydrothorax. The lung stewart are clear. Cardiomediastinal silhouette is unremarkable. Minimal degenerative changes are seen in the thoracic spine. IMPRESSION: No active cardiopulmonary disease. Left-sided Hvqmbp-J-Asbj catheter in place. No complication seen. <Electronically signed by Elias Sinha > 04/15/20 1033
[2020-04-15] MEDS ORDERED: ONDANSETRON 4MG/2ML VIAL IV PRN (11:00)
[2020-04-15] MEDS ORDERED: LR 1,000 ML IV SCH (11:00)
[2020-04-15] MEDS ORDERED: fentaNYL 100 MCG/2 ML INJECTION (J3010) IV PRN (11:00)
[2020-04-15] MEDS ORDERED: oxyCODONE 5MG TAB PO PRN (11:00)
[2020-04-15] MEDS ORDERED: METOCLOPRAMIDE INJ 10MG/2ML VIAL (J2765 PER 1) IV PRN (11:00)
[2020-04-15] MEDS ORDERED: MEPERIDINE INJ 25 MG/ML VIAL (J2175) IV PRN (11:00)
[2020-04-15 11:10] VITALS: BP 149/80
[2020-04-18] MEDS ORDERED: CAPE1TAB2 PO (10:58)
--- NOTE | 2020-04-24 19:37 | RO ---
OPERATIVE NOTE DATE OF OPERATION: 04/15/2020 PREOPERATIVE DIAGNOSIS: IV access needed for chemotherapy (colon cancer). POSTOPERATIVE DIAGNOSIS: IV access needed for chemotherapy (colon cancer). PROCEDURE: Left subclavian Cyoywu-B-Vilr placement with fluoroscopic guidance. SURGEON: Román Parks M.D. BILINGUAL TEACHER AIDE: ANESTHESIA: IV sedation plus local. ESTIMATED BLOOD LOSS: Minimal. FLUIDS: Crystalloid. DESCRIPTION OF PROCEDURE: The patient was brought to the operating room and was given general anesthesia, was placed in supine position, was prepped and draped in the usual sterile fashion. Next, the left infraclavicular area was infiltrated with local and finder needle was placed into the vein. A wire was placed over this into the superior vena cava which was confirmed by fluoroscopic guidance. Next, the Icwvkt-P-Vrpf pocket was infiltrated with local and the Vsshpw-V-Vkiq pocket was created using first skin knife and then electrocautery to create the pocket itself. Once this pocket was created, a tunnel from the Cmkukk-Z-Pmsd pocket up to the puncture site at the infraclavicular area was made with blunt dissection. Next, the Rhmpra-Z-Gano catheter was cut to length, placed on the Rnpier-F-Qnwe. The Ospkeu-U-Girr was sutured in both medially and laterally within the pocket and the catheter was brought through the subcutaneous port pocket and subcutaneous tunnel up to the infraclavicular area. Next, a dilator was placed over the wire. Then a dilator sheath combination was placed over the wire and sheath was left in position and the catheter placed through this with the peel-away sheath removed. The catheter was then evaluated under fluoroscopic guidance and revealed good placement of the catheter itself. The catheter aspirated and flushed without difficulty. Final flush was placed in this as well. The dermis was brought together with 3-0 Vicryl. 4-0 Vicryl was used to approximate the skin. Steri-Strips and a dry sterile dressing were applied. The patient was awakened from her sedation and brought to the recovery room awake, alert, hemodynamically stable. Sponge and needle counts were correct x2.
== END 2020-04-15 12:08 | disposition home or self-care (01) ==
LOC: M SDC 06:57
PROVIDERS: ATTEND Surgery
DX: C18.9 Malignant neoplasm of colon, unspecified (principal); I10 Essential (primary) hypertension; E78.00 Pure hypercholesterolemia, unspecified; E03.9 Hypothyroidism, unspecified; G47.33 Obstructive sleep apnea (adult) (pediatric); R73.03 Prediabetes; Z79.82 Long term (current) use of aspirin; Z79.899 Other long term (current) drug therapy; Z90.710 Acquired absence of both cervix and uterus
CPT/HCPCS: 36561; 71045; 76000; C1788; J0690; J1100; J1644; J1885; J2250; J2405; J3010

== ENCOUNTER → 2020-04-27 | Outpatient (CLI) | payer BC | LOC: M LAB 23:05 | PROVIDERS: ATTEND Specialist | DX: C18.9 Malignant neoplasm of colon, unspecified (principal) ==

== ENCOUNTER → 2020-05-11 | Outpatient (CLI) | payer BC ==
[2020-05-11 06:57] LABS: BASO # 0.1 10^3/uL (0.0-0.2); BASO % 0.4 % (0.0-1.0); EOS # 0.4 10^3/uL (0.0-0.5); EOS % 2.6 % (0.0-3.0); HEMATOCRIT 40.4 % (36.0-47.0); HEMOGLOBIN 13.2 g/dl (12.0-15.5); LYMPH # 5.1 10^3/uL (1.5-5.0); MEAN CORPUSCULAR HEMOGLOBIN 30.6 pg (27.0-33.0); MEAN CORPUSCULAR HGB CONC 32.7 g/dl (32.0-36.5); MEAN CORPUSCULAR VOLUME 93.7 fl (80.0-96.0); MONO # 1.1 10^3/uL (0.0-0.8); MONO % 7.5 % (2.0-8.0); NEUTROPHILS # 7.5 10^3/uL (1.5-8.5); NEUTROPHILS % 53.1 % (36.0-66.0); PLATELET COUNT, AUTOMATED 439 10^3/uL (150-450); RED BLOOD COUNT 4.31 10^6/uL (4.00-5.40)
[2020-05-11 06:59] LABS: WHITE BLOOD COUNT 14.1 10^3/uL (4.0-10.0)
[2020-05-11 07:20] LABS: BILIRUBIN,TOTAL 0.2 MG/DL (0.2-1.0); CALCIUM LEVEL 9.6 MG/DL (8.5-10.1); CREATININE FOR GFR 1.04 MG/DL (0.55-1.30); GLOMERULAR FILTRATION RATE 58.6 (>51); POTASSIUM SERUM 4.1 MEQ/L (3.5-5.1); TOTAL PROTEIN 7.2 GM/DL (6.4-8.2)
== END ==
LOC: M LAB 06:09
PROVIDERS: ATTEND Specialist
DX: C18.9 Malignant neoplasm of colon, unspecified (principal)

== ENCOUNTER → 2020-05-26 | Outpatient (CLI) | payer BC ==
--- NOTE | 2020-05-26 15:59 | REPMRS ---
Patient History The patient states she had a clinical breast exam in May 2020. Patient has history of colorectal cancer at age 55. Family history of breast cancer in maternal aunt. Digital Woman Screen Mammo: May 26, 2020 - Exam #: [id number] Bilateral CC and MLO view(s) were taken. Technologist: Elissa Jiang, Technologist No prior studies available for comparison. FINDINGS: There are scattered fibroglandular densities. The Volpara volumetric breast density category is: B. There is a benign appearing intramammary lymph node in the upper-outer quadrant of the left breast and a portion of a left-sided Scgxuw-R-Unoy device is visible on the MLO view of the left breast.] There is no evidence of dominant mass, architectural distortion, or grouped microcalcification typical of malignancy. 3-D tomosynthesis shows no additional findings. Assessment: BI-RADS/ACR category 2 mammogram. Benign Findings. Recommendation Routine screening mammogram of both breasts in 1 year (for women over age 40). This patient's [facility] Lifetime Breast Cancer RIsk is estimated at 12.1 %. This mammogram was interpreted with the aid of an FDA-approved computer-aided dectection system. Electronically Signed By: Elias Sinha MD 05/26/20 [id number]
== END ==
LOC: M WHC 14:01
PROVIDERS: ATTEND Nurse Practitioner Family
DX: Z12.31 Encounter for screening mammogram for malignant neoplasm of breast (principal); Z85.038 Personal history of other malignant neoplasm of large intestine

== ENCOUNTER → 2020-05-26 | Outpatient (REF) | payer BC | LOC: M SFHCWAGY 17:24 | PROVIDERS: ATTEND Nurse Practitioner Women's Health | DX: Z12.4 Encounter for screening for malignant neoplasm of cervix (principal) ==

== ENCOUNTER → 2020-10-14 | Outpatient (CLI) | payer BC ==
[~2020-10-14] MED LIST changes: +CALC1TAB63 PO; +GASTROGRAFIN SOLUTION 30ML (Q9963) As Ordered ONE; +ISOVUE-370 76% 100ML VIAL As Ordered ONE; +MILK175T PO
--- NOTE | 2020-10-14 13:28 | REP ---
INDICATION: RESTAGING COLON CA. COMPARISON: 02/16/2020 noncontrast enhanced examination in the only prior TECHNIQUE: Standard helical technique after the intravenous administration of 100 cc Isovue 370 and oral bowel preparatory contrast administration. FINDINGS: The liver, gallbladder, spleen, pancreas, adrenal glands, and kidneys are essentially unchanged and again seen to be within normal limits. The abdominal aorta and para-aortic regions are unchanged and again seen to be within normal limits. The patient is status post left hemicolectomy and diverting colostomy. The colostomy site seen in the left mid abdominal region is seen with a parastomal hernia through which small bowel loops reside. There is no intestinal obstruction. There is no free fluid or free air. No new mass or adenopathy has developed. There is no change in the osseous structures. IMPRESSION: Postoperative changes, left-sided colostomy, and parastomal hernia as described above. <Electronically signed by Navid Ortega > 10/14/20 [id number]
--- NOTE | 2020-10-14 13:32 | REP ---
INDICATION: RESTAGING COLON CA. COMPARISON: AP chest 04/15/2020, PA chest 02/19/2020. No prior chest CT available. TECHNIQUE: Bolus 100 mL Isovue 370 scanning through the chest with coronal and sagittal reconstructions. FINDINGS: Lung stewart are well inflated without nodule infiltrate or mass. There are some minor fibrotic or atelectatic changes in the inferior lingular segment of the left upper lobe adjacent to the left heart border. A left subclavian Pnboqw-T-Avrt is seen terminating in the left brachiocephalic vein just to the right of midline. The heart is not grossly enlarged. Left atrium is mildly prominent. No pericardial thickening or effusion. The aorta is without aneurysm or dissection. The main, right and left pulmonary arteries within the mediastinum are without filling defects. No pathologic sized mediastinal, hilar, axillary or supraclavicular adenopathy. Lobar pulmonary arteries are without filling defects. Bone windows show minor thoracic spondylosis without compression deformity or destructive lesion of the vertebral bodies or the posterior elements. The clavicles, AC joints, sternum, manubrium, scapulae and humeral heads were all unremarkable. Visualized ribs were intact. Appears to be fatty infiltration of the liver. Adrenal glands grossly intact. None of the upper abdominal organs are seen in their entirety. Please see the dedicated CT abdomen pelvis report this date for details. IMPRESSION: 1. No evidence of the metastatic disease in the chest including lungs, pleura, mediastinum, chest wall or bony structures. 2. Left subclavian Orxhwq-F-Oomf as described. <Electronically signed by Mookie Nielsen > 10/14/20 [id number]
== END ==
LOC: M RAD 09:56
PROVIDERS: ATTEND Internal Medicine Medical Oncology
DX: C18.9 Malignant neoplasm of colon, unspecified (principal)
CPT/HCPCS: 71260; 74177; J1642; Q9963; Q9967

== ENCOUNTER 2020-12-09 08:30 | Inpatient (IN) | payer BC ==
[~2020-12-09] VITALS: Ht 160 cm; Wt 89.4 kg
[~2020-12-09 08:30] MED LIST changes: +CHLO125TA PO; -GASTROGRAFIN SOLUTION 30ML (Q9963) As Ordered ONE; -ISOVUE-370 76% 100ML VIAL As Ordered ONE
--- NOTE | 2021-01-30 15:04 | HPE ---
HISTORY AND PHYSICAL DATE OF ADMISSION: 01/31/2021 BRIEF HISTORY OF PRESENT ILLNESS: The patient is a 55-year-old female who had a sigmoid colon obstruction and this resulted in a sigmoid colectomy with end colostomy. 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 The patient has undergone chemotherapy and has been doing well and now is here for reversal of her colostomy. PAST MEDICAL HISTORY: Significant for a history of hypertension, history of hypothyroidism, history of atrial fibrillation, history of sleep apnea, history of x2, history of hysterectomy and history of colectomy with end colostomy. MEDICATIONS: 1. Aspirin. 2. Bisoprolol. 3. CPAP. 4. Chlorthalidone. 5. Crestor. 6. Lanoxin. 7. Synthroid. PHYSICAL EXAMINATION: A 55-year-old female who looks stated age. HEENT is unremarkable. Neck is supple without adenopathy. Lungs are clear. Heart is regular. Abdomen is with multiple irregular beats. Abdomen is soft, nondistended and nontender. She does have a colostomy in place, well-functioning. Extremities are warm and well-perfused. IMPRESSION/PLAN: Patient is here for a colostomy reversal. The plan is for a laparoscopic colostomy reversal with a coloproctostomy/anastomosis. We will plan on a mechanical as well as antibiotic bowel prep. IV fluids, NPO, Sinclair catheter, and will plan on postoperative admission for approximately three to five days depending on her recovery from this. She understands the risks as well as benefits associated with the hospitalization as well as the operative intervention and agrees to proceed with intervention. She understands that the risk of needing another colostomy is now although not inconceivable and that operative intervention is expected to be laparoscopic but may also be open depending on intraoperative abdominal adhesions, etc
[2021-01-31] VITALS (8 sets, daily range): BP systolic 104–124; BP diastolic 56–72
[2021-01-31] MEDS ORDERED: LR 1,000 ML IV ONE (06:00)
[2021-01-31] MEDS ORDERED: ceFAZolin SOD 2 GM in IV 1 EA IV ONE (06:00)
[2021-01-31] MEDS ORDERED: BUPIVACAINE LIPOSOME/PF 1.3% 20ML VIAL (13.3MG/ML)(EXPAREL)(C9290 PER1MG) As Ordered ONE (07:10)
[2021-01-31] MEDS ORDERED: BUPIVACAINE/EPIN 0.25% 30 ML VIAL As Ordered ONE (07:10)
[2021-01-31] MEDS ORDERED: BUPIVACAINE HCL 0.25% 10ML VIAL As Ordered ONE (07:10)
[2021-01-31] MEDS ORDERED: GLUCAGON INJ 1MG VIAL As Ordered ONE (07:10)
[2021-01-31] MEDS ORDERED: MIDAZOLAM INJ 2MG/2ML VIAL (J2250 PER 1MG) As Ordered ONE (07:14)
[2021-01-31] MEDS ORDERED: LIDOCAINE 2% 100MG/5ML SDV (FOR ANES.) As Ordered ONE (07:14)
[2021-01-31] MEDS ORDERED: fentaNYL 100 MCG/2 ML INJECTION (J3010) As Ordered ONE (07:14)
[2021-01-31] MEDS ORDERED: ROCURONIUM BROMIDE 50 MG/5 ML VIAL As Ordered ONE ×3 (07:14→10:02)
[2021-01-31] MEDS ORDERED: propofoL 200 MG/20 ML VIAL As Ordered ONE (07:14)
[2021-01-31] MEDS ORDERED: dexameTHASONE 4 MG/ML 1ML VIAL (J1100 PER 1MG) As Ordered ONE (07:51)
[2021-01-31] MEDS ORDERED: ACETAMINOPHEN 1000MG 100ML IV BTL (OFIRMEV) (J0131 PER 10MG) As Ordered ONE (08:09)
[2021-01-31] MEDS ORDERED: ONDANSETRON 4MG/2ML VIAL As Ordered ONE (08:09)
[2021-01-31] MEDS ORDERED: HYDROmorphone HCL 2 MG/ML 1ML VIAL As Ordered ONE (08:09)
[2021-01-31] MEDS ORDERED: SUGAMMADEX SODIUM 500 MG/5 ML VIAL (BRIDION) As Ordered ONE (08:09)
[2021-01-31] MEDS ORDERED: ePHEDrine SULFATE 25 MG/5 ML(5MG/ML) SYRINGE As Ordered ONE (08:53)
[2021-01-31] MEDS ORDERED: traMADol 50 MG TAB PO PRN (11:20)
[2021-01-31] MEDS ORDERED: MORPHINE 2 MG/ML 1ML VIAL (J2270) IV PRN ×2 (11:20)
[2021-01-31] MEDS ORDERED: HYDROMORPHONE HCL 0.5 MG/ 0.5 ML SYRINGE (J1170 PER 1) IV PRN (11:50)
[2021-01-31] MEDS ORDERED: fentaNYL 100 MCG/2 ML INJECTION (J3010) IV PRN (11:50)
[2021-01-31] MEDS ORDERED: LR 1,000 ML IV SCH (11:50)
[2021-01-31] MEDS ORDERED: METOCLOPRAMIDE INJ 10MG/2ML VIAL (J2765 PER 1) IV PRN (11:50)
[2021-01-31] MEDS ORDERED: ONDANSETRON 4MG/2ML VIAL IV PRN ×2 (11:50→14:50)
[2021-01-31] MEDS ORDERED: oxyCODONE 5MG TAB PO PRN (11:50)
[2021-01-31] MEDS ORDERED: PILL CUTTER 1 EACH XX PRN (11:55)
[2021-01-31] MEDS: KETOROLAC 30 MG/ML 1ML VIAL IV SCH ×2 (13:53→18:38)
[2021-01-31] MEDS: LR 1,000 ML IV SCH ×2 (14:32→18:37)
[2021-01-31] MEDS: SODIUM CHLORIDE 0.9% INJ 10 ML SYR IV SCH (14:50)
[2021-01-31] MEDS: traMADol 50 MG TAB PO PRN (17:30)
[2021-01-31] MEDS: ALVIMOPAN 12 MG CAPSULE (ENTEREG) PO SCH (20:29)
[2021-02-01] MEDS: LR 1,000 ML IV SCH (00:47)
[2021-02-01] MEDS: KETOROLAC 30 MG/ML 1ML VIAL IV SCH ×4 (00:47→19:59)
[2021-02-01 03:30] VITALS: BP 109/56
[2021-02-01 06:19] LABS: BASO % 0.2 % (0.0-1.0); EOS # 0.2 10^3/uL (0.0-0.5); EOS % 1.2 % (0.0-3.0); HEMATOCRIT 36.7 % (36.0-47.0); HEMOGLOBIN 12.3 g/dl (12.0-15.5); LYMPH # 2.4 10^3/uL (1.5-5.0); MEAN CORPUSCULAR HEMOGLOBIN 31.1 pg (27.0-33.0); MEAN CORPUSCULAR HGB CONC 33.5 g/dl (32.0-36.5); MEAN CORPUSCULAR VOLUME 92.9 fl (80.0-96.0); MONO # 1.2 10^3/uL (0.0-0.8); MONO % 6.4 % (2.0-8.0); NEUTROPHILS # 14.4 10^3/uL (1.5-8.5); NEUTROPHILS % 78.7 % (36.0-66.0); PLATELET COUNT, AUTOMATED 333 10^3/uL (150-450); RED BLOOD COUNT 3.95 10^6/uL (4.00-5.40); WHITE BLOOD COUNT 18.3 10^3/uL (4.0-10.0)
[2021-02-01] MEDS: LEVOTHYROXINE 50MCG TABLET (0.05MG) PO SCH (06:30)
[2021-02-01 06:38] LABS: ALBUMIN 2.8 GM/DL (3.2-5.2); ALT/SGPT 34 U/L (12-78); BILIRUBIN,TOTAL 0.5 MG/DL (0.2-1.0); BLOOD UREA NITROGEN 14 MG/DL (7-18); CALCIUM LEVEL 8.8 MG/DL (8.5-10.1); CARBON DIOXIDE LEVEL 29 MEQ/L (21-32); CHLORIDE LEVEL 104 MEQ/L (98-107); CREATININE FOR GFR 0.65 MG/DL (0.55-1.30); GLOMERULAR FILTRATION RATE > 60.0 (>51); GLUCOSE, FASTING 104 MG/DL (70-100); POTASSIUM SERUM 3.5 MEQ/L (3.5-5.1); SODIUM LEVEL 141 MEQ/L (136-145); TOTAL PROTEIN 5.7 GM/DL (6.4-8.2)
[2021-02-01 07:30] VITALS: BP 121/59
[2021-02-01] MEDS ORDERED: ERTAPENEM SODIUM 1 GM in NS MINI-BAG PLUS 50 ML IV ONE (08:00)
--- NOTE | 2021-02-01 09:11 | IPNPDOC ---
Text Note Date of Service The patient was seen on 02/01/21. NOTE SUBJECTIVE: Patient is a 55-year-old female who had a sigmoid colon obstruction which needed a sigmoid colectomy with end colostomy. The pathology report reveals a sigmoid colon cancer T3 N1 lesion; she has undergone chemotherapy. She presented for a reversal of her colostomy. Patient was seen lying in bed with no acute distress. States that her abdomen feels bloated and is a little sore from surgery. She states that she would like to walk around and has been passing flatus since 7pm last night. ESTUARDO drain has been draining serosanguineous fluid all night. She noted some blood from rectum; normal as the instrument used for anastomosis probably caused some of her hemor rhoids to bleed. REVIEW OF SYSTEMS: CONSTITUTIONAL: denies fever, chills, night sweats HEENT: denies headaches RESPIRATORY: denies shortness of breath, wheezing CARDIOVASCULAR: denies chest pain, palpations GASTROINTESTINAL: feels sore in her abdomen region; some blood from rectum; denies nausea, vomiting MUSCULOSKELETAL: denies myalgias NEUROLOGICAL: denies numbness or tingling in hands or feet OBJECTIVE PHYSICAL EXAMINATION: VITAL SIGNS: Please see below. GENERAL: in no acute distress HEENT: PERRLA, EOMI, mucous membranes moist CARDIOVASCULAR: regular rate and rhythm; S1 S2; no murmur, rubs or gallops noted RESPIRATORY: clear to auscultation bilaterally, no wheezes, rhonchi, rales noted ABDOMINAL: normal active bowel sounds; soft, nondistended, no tenderness with palpation; has ESTUARDO drain in the lower Right quadrant draining serosanguineous fluid; wound vac on Left lower quadrant; incision sites dry and clean EXTREMITIES: no pitting edema bilaterally NEUROLOGICAL: Cranial nerves II through XII grossly intact; no focal neurologic deficits noted LABORATORY DATA, IMAGING STUDIES, MICROBIOLOGY: Please see below. ASSESSMENT AND PLAN: This is a 55-year-old female who had a sigmoid colectomy with end colostomy s/p reversal of colostomy day 1. - current pain control adequate - start on clear liquids diet; if tolerating well, can progress diet - d/c chang; monitor i's & O's - encourage ambulation with assistance - continue home medications GME ATTESTATION My faculty preceptor for this patient encounter was physically present during the encounter and was fully available. All aspects of the patient interview, examination, medical decision making process, and medical care plan development were reviewed and approved by the faculty preceptor. The faculty preceptor is aware and concurs with the plan as stated in the body of this note and will attest to such by his/her cosignature. VS,Fishbone, I+O VS, Fishbone, I+O Laboratory Tests 02/01/21 05:29 Vital Signs Date Time Temp Pulse Resp B/P (MAP) Pulse Ox O2 Delivery O2 Flow Rate FiO2 02/01/21 07:30 99.2 69 20 121/59 (79) 96 Nasal Cannula 2.0 I&O- Last 24 Hours up to 6 AM 02/01/21 06:00 Intake Total 2100 ml Output Total 1170 ml Balance 930 ml Humaira Stuart DO Feb 01, 2021 09:11
[2021-02-01] MEDS: PANTOPRAZOLE 40MG VIAL (C9113 PER 1) IV SCH (09:32)
[2021-02-01] MEDS: SODIUM CHLORIDE 0.9% INJ 10 ML SYR IV SCH (09:32)
[2021-02-01] MEDS: DIGOXIN 0.25 MG TAB PO SCH (09:36)
[2021-02-01] MEDS: bisoproloL fumarate 5 MG TAB PO SCH (09:36)
[2021-02-01] MEDS: ALVIMOPAN 12 MG CAPSULE (ENTEREG) PO SCH ×2 (09:36→20:15)
[2021-02-01] MEDS: ROSUVASTATIN 10 MG TAB (CRESTOR) PO SCH (09:36)
[2021-02-01 10:00] VITALS: BP 112/57
[2021-02-01] MEDS: traMADol 50 MG TAB PO PRN (11:13)
[2021-02-01 14:00] VITALS: BP 115/55
[2021-02-01 18:00] VITALS: BP 134/69
[2021-02-01 22:00] VITALS: BP 112/56
[2021-02-02] MEDS: KETOROLAC 30 MG/ML 1ML VIAL IV SCH ×4 (01:52→19:01)
[2021-02-02 02:00] VITALS: BP 111/57
[2021-02-02 06:00] VITALS: BP 112/57
[2021-02-02] MEDS: LEVOTHYROXINE 50MCG TABLET (0.05MG) PO SCH (06:28)
[2021-02-02] MEDS: SODIUM CHLORIDE 0.9% INJ 10 ML SYR IV PRN (06:29)
[2021-02-02] MEDS: ALVIMOPAN 12 MG CAPSULE (ENTEREG) PO SCH ×2 (09:00→20:13)
[2021-02-02] MEDS: ROSUVASTATIN 10 MG TAB (CRESTOR) PO SCH (09:06)
[2021-02-02] MEDS: DIGOXIN 0.25 MG TAB PO SCH (09:09)
[2021-02-02] MEDS: bisoproloL fumarate 5 MG TAB PO SCH (09:09)
[2021-02-02] MEDS: PANTOPRAZOLE 40MG VIAL (C9113 PER 1) IV SCH (09:34)
[2021-02-02] MEDS: SODIUM CHLORIDE 0.9% INJ 10 ML SYR IV SCH (09:36)
[2021-02-02 10:00] VITALS: BP 133/62
[2021-02-02] MEDS: traMADol 50 MG TAB PO PRN (12:52)
[2021-02-02 14:00] VITALS: BP 125/61
[2021-02-02 21:30] VITALS: BP 112/60
[2021-02-03] MEDS: KETOROLAC 30 MG/ML 1ML VIAL IV SCH ×2 (01:46→06:37)
[2021-02-03] MEDS: SODIUM CHLORIDE 0.9% INJ 10 ML SYR IV PRN (01:47)
[2021-02-03 02:00] VITALS: BP 124/65
[2021-02-03 06:00] VITALS: BP 125/66
[2021-02-03] MEDS: LEVOTHYROXINE 50MCG TABLET (0.05MG) PO SCH (06:37)
[2021-02-03] MEDS ORDERED: TRAM50TA2 PO (08:23)
--- NOTE | 2021-02-03 08:52 | DS.PDOC ---
Discharge Summary General Date of Admission Jan 31, 2021 at 06:00 Date of Discharge 02/03/2021 Discharge Summary PROCEDURES PERFORMED DURING STAY: Laparoscopic colostomy reversal with a coloproctostomy/anastomosis; Lysis of adhesions ADMITTING DIAGNOSES: 1. Sigmoid Colon Cancer s/p Colectomy with end colostomy 2. HTN 3. Hypothyroidism 4. Hx of Atrial fibrillation 5. Sleep apnea 6. Hx of x2 7. HX of hysterectomy DISCHARGE DIAGNOSES: 1. Sigmoid Colon Cancer s/p Colectomy with end colostomy s/p Laparoscopic colostomy reversal 2. HTN 3. Hypothyroidism 4. Hx of Atrial fibrillation 5. Sleep apnea 6. Hx of x2 7. HX of hysterectomy COMPLICATIONS/CHIEF COMPLAINT: Sigmoid Colon Cancer, Colostomy. HISTORY OF PRESENT ILLNESS: Patient is a 55 year old female with a hx of sigmoid colon obstruction resulting in sigmoid colectomy with end colostomy. 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 The patient has undergone chemotherapy and is now presenting for reversal of colostomy. HOSPITAL COURSE: During her stay, she received a laparoscopic colostomy reversal with a coloproctostomy/anastomosis. Prior to procedure, she had a mechanical as well as antibiotic bowel prep. She was kept NPO, given IV fluids and a Chang catheter was placed. Postoperatively she received continue to received IV fluids and her chang was discontinued. Gradually she was able to pass gas as well as have bowel movements and tolerated diet well. Her pain as adequately controlled postoperatively. She will go home on Ultram 50mg q5hrs prn for the next 7 days. She will also need to follow up in Surgery clinic for removal of kelsi. DISCHARGE MEDICATIONS: Please see below. ALLERGIES: Please see below. PHYSICAL EXAMINATION ON DISCHARGE: VITAL SIGNS: Please see below. GENERAL: in no acute distress HEENT: PERRLA; EOMI; moist mucus membranes NECK: no lymphadenopathy; no JVD; no thyromegaly CARDIOVASCULAR EXAMINATION: RRR; no tachycardia; S1 and S2; no murmurs rubs or gallops appreciated RESPIRATORY EXAMINATION: CTA b/l; no wheezes, rales or rhonchi appreciated ABDOMINAL EXAMINATION: soft, nondistended, no tenderness to soft palpation; no suprapubic tenderness; 4 incision sites noted, nondraining and clean; wound vac removed from site EXTREMITIES: no pitting edema NEUROLOGICAL EXAMINATION: CN II-XII grossly intact; no focal neurological deficits PSYCHIATRIC EXAMINATION: appropriate mood and affect LABORATORY DATA: Please see below. IMAGING: None PROGNOSIS: Good ACTIVITY: As tolerated; avoid heavy activity for the next 4 weeks; do not lift over 20-25 lbs DIET: As tolerated DISPOSITION: discharge to home DISCHARGE INSTRUCTIONS: 1. Please follow up with [facility] surgery in the next 1 week in order to remove kelsi and evaluation. 2. Please take Ultram 50mg tablet every 6 hours NEEDED for the next 7 days. 3. Please keep the wound site covered with a wet to dry dressing. Please wet gauze and place over wound, leave it there until the gauze has dried and replace. DISCHARGE CONDITION: Stable TIME SPENT ON DISCHARGE: 33 minutes. Vital Signs/I&Os Vital Signs Date Time Temp Pulse Resp B/P (MAP) Pulse Ox O2 Delivery O2 Flow Rate FiO2 02/03/21 06:00 97.8 67 18 125/66 (85) 97 Room Air 02/02/21 10:00 2.0 I&O- Last 24 Hours up to 6 AM 02/03/21 06:00 Intake Total 2340 ml Output Total 1070 ml Balance 1270 ml Discharge Medications Scheduled Aspirin (Aspirin EC) 81 Mg Tablet.dr, 81 MG PO DAILY, (Reported) Bisoprolol Fumarate (Bisoprolol Fumarate) 5 Mg Tablet, 7.5 MG PO DAILY, (R eported) Chlorthalidone (Chlorthalidone) 25 Mg Tablet, 1 TAB PO DAILY, (Reported) Cranberry Fruit (Cranberry) 450 Mg Tablet, 450 MG PO DAILY, (Reported) vitamin c Digoxin (Digoxin) 250 Mcg Tablet, 250 MCG PO DAILY, (Reported) Levothyroxine Sodium (Levothyroxine Sodium) 50 Mcg Tablet, 50 MCG PO DAILY, (Reported) Rosuvastatin Calcium (Rosuvastatin Calcium) 20 Mg Tablet, 20 MG PO DAILY, (Reported) Scheduled PRN Tramadol HCl (Tramadol HCl) 50 Mg Tablet, 50 MG PO Q6HP PRN for pain Allergies Coded Allergies: No Known Allergies (Verified Allergy, Unknown, 01/31/21) GME ATTESTATION My faculty preceptor for this patient encounter was physically present during the encounter and was fully available. All aspects of the patient interview, examination, medical decision making process, and medical care plan development were reviewed and approved by the faculty preceptor. The faculty preceptor is aware and concurs with the plan as stated in the body of this note and will attest to such by his/her cosignature. Humaira Stuart DO Feb 03, 2021 08:52
[2021-02-03] MEDS: ALVIMOPAN 12 MG CAPSULE (ENTEREG) PO SCH (09:00)
[2021-02-03] MEDS: ROSUVASTATIN 10 MG TAB (CRESTOR) PO SCH (09:10)
[2021-02-03] MEDS: traMADol 50 MG TAB PO PRN (09:11)
[2021-02-03] MEDS: PANTOPRAZOLE 40MG VIAL (C9113 PER 1) IV SCH (09:12)
[2021-02-03 09:13] VITALS: BP 136/77
[2021-02-03] MEDS: bisoproloL fumarate 5 MG TAB PO SCH (09:13)
[2021-02-03] MEDS: DIGOXIN 0.25 MG TAB PO SCH (09:13)
[2021-02-03] MEDS: SODIUM CHLORIDE 0.9% INJ 10 ML SYR IV SCH (09:14)
--- NOTE | 2021-02-07 13:41 | RO ---
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 PROCEDURE: Laparoscopic colostomy reversal. SURGEON: Román Parks Jr, MD HARDNESS INSPECTOR: Dr. Dacosta (provided assistance with abdominal wall closure and coloproctostomy anastomosis. ANESTHESIA: General endotracheal anesthesia. EBL: Minimal. FLUIDS: Crystalloid. DESCRIPTION OF PROCEDURE: The patient was brought to the operating room and was given general anesthesia. After adequate anesthesia and preoperative antibiotics were given the patient was prepped and draped in usual sterile fashion. Next a circular incision around the ostomy was made with skin knife after closing the ostomy with #0 Prolene and then the colostomy was mobilized with combination of blunt and sharp dissection as well as electrocautery and significant amount of dissection was necessary to eventually mobilize this and then mobilize the omentum off the descending colon in this area was able to mobilize this quite nicely and in the surrounding tissue also mobilized some of the scar tissue off this area. Thus, a Layo catheter was placed in this site and then second 5 mm port was just placed in the left upper quadrant to take down multiple adhesions along the midline with Harmonic scalpel; wherever bowel was coming up to the abdominal wall scissors were used to dissect this off and then once this was nicely mobilized off the entire anterior abdominal wall the right mid abdomen and right lower quadrant 5 mm trocars were placed. The dissection continued and there was small bowel adherent throughout the pelvis which was mobilized with sharp dissection to get this out of the pelvis, off the rectal stump and eventually after I was able to mobilize this off the rectal stump and off multiple other areas of bowel, an anvil 29 EEA anvil was placed in the colostomy, placed into the abdominal cavity and anastomosis was created with end-to-end anastomosis. This went together nicely; air insufflation revealed no air leak and colonoscopically the scope was inserted up the rectum and revealed normal appearing anastomosis with no air leak. The left-sided abdominal wall site was closed with #1 Vicryl in running manner and all trocar sites were closed with kelsi. A wound VAC was placed in colostomy site. The patient was awakened, extubated and brought to the recovery room awake, alert, hemodynamically stable. Sponge and needle counts correct x2.
--- NOTE | 2021-02-07 15:49 | DSES ---
DISCHARGE SUMMARY DATE OF ADMISSION: 01/31/2021 DATE OF DISCHARGE: 02/03/2021 PRINCIPAL DIAGNOSIS: Sigmoid colon cancer (obstruction needing colostomy and colectomy), now here for colostomy reversal. ASSOCIATED DIAGNOSES: 1. History of colon cancer. 2. History of atrial fibrillation. 3. History of hypertension. 4. History of hypothyroidism. 5. History of sleep apnea. 6. History of . 7. Hysterectomy. BRIEF HISTORY OF PRESENT ILLNESS: The patient is a 55-year-old female who had a sigmoid colon obstruction that resulted in sigmoid colectomy with end colostomy last year. She underwent chemotherapy for this T3N1 lesion and has been doing well and is here for reversal of her colostomy. HOSPITAL COURSE SUMMARY: The patient was admitted with the above diagnosis, underwent laparoscopic colostomy reversal. Postoperatively she did quite well. She was tolerating clear liquid diet very soon postoperatively and then was advanced to a regular diet prior to discharge. She was discharged home on her usual medications which include: Aspirin, Bisoprolol, Chlorthalidone, cranberry extract, Digoxin, Synthroid, Rosuvastatin, and also was given Tramadol for pain as needed. She was to follow up in one week for suture removal and to continue with wet-to-dry dressing changes to her ostomy site until follow up visit.
== END 2021-02-03 11:20 | disposition home or self-care (01) | DRG 221 ==
LOC: M OR 01-31 06:00 → M MSPAV 01-31 14:20
PROVIDERS: ADMIT Surgery; ATTEND Surgery
PROC: 0DQN4ZZ Repair Sigmoid Colon, Percutaneous Endoscopic Approach (ICD-10-PCS; 2021-01-31)
PROC: 0DBN4ZZ Excision of Sigmoid Colon, Percutaneous Endoscopic Approach (ICD-10-PCS; principal; 2021-01-31 07:30)
DX: Z43.3 Encounter for attention to colostomy (principal); I48.91 Unspecified atrial fibrillation; I10 Essential (primary) hypertension; E03.9 Hypothyroidism, unspecified; Z85.038 Personal history of other malignant neoplasm of large intestine; Z92.21 Personal history of antineoplastic chemotherapy; Z79.82 Long term (current) use of aspirin; Z79.899 Other long term (current) drug therapy

== ENCOUNTER → 2021-01-26 | Outpatient (CLI) | payer BC | LOC: M LABSMTC 09:05 | PROVIDERS: ATTEND Anesthesiology | DX: Z01.812 Encounter for preprocedural laboratory examination (principal); Z20.822 Contact with and (suspected) exposure to COVID-19 ==

== ENCOUNTER → 2021-04-21 | Outpatient (CLI) | payer BC ==
[~2021-04-21] MED LIST changes: +ONDA-84 PO; -ONDA8TAB10 PO; -PROC10TA4 PO; +PROC10TA5 PO
[2021-04-21 06:55] LABS: BASO # 0.1 10^3/uL (0.0-0.2); BASO % 0.6 % (0.0-1.0); EOS # 0.3 10^3/uL (0.0-0.5); EOS % 2.5 % (0.0-3.0); HEMATOCRIT 41.1 % (36.0-47.0); HEMOGLOBIN 13.5 g/dl (12.0-15.5); LYMPH # 3.3 10^3/uL (1.5-5.0); LYMPH % 26.4 % (24.0-44.0); MEAN CORPUSCULAR HGB CONC 32.8 g/dl (32.0-36.5); MEAN CORPUSCULAR VOLUME 91.3 fl (80.0-96.0); MONO # 0.9 10^3/uL (0.0-0.8); MONO % 6.8 % (2.0-8.0); NEUTROPHILS % 63.3 % (36.0-66.0); PLATELET COUNT, AUTOMATED 388 10^3/uL (150-450); WHITE BLOOD COUNT 12.6 10^3/uL (4.0-10.0)
[2021-04-21 07:28] LABS: ALBUMIN 3.9 GM/DL (3.2-5.2); ALT/SGPT 50 U/L (12-78); BILIRUBIN,TOTAL 0.5 MG/DL (0.2-1.0); BLOOD UREA NITROGEN 13 MG/DL (7-18); CALCIUM LEVEL 9.5 MG/DL (8.5-10.1); CARBON DIOXIDE LEVEL 31 MEQ/L (21-32); CHLORIDE LEVEL 99 MEQ/L (98-107); CHOLESTEROL LEVEL 143 MG/DL (<200); CHOLESTEROL RISK RATIO 3.864 (<5); GLOMERULAR FILTRATION RATE > 60.0 (>51); GLUCOSE, FASTING 123 MG/DL (70-100); HDL CHOLESTEROL 37 MG/DL (>40); LDL CHOLESTEROL 75 MG/DL (<100); NON-HDL-C 106 MG/DL; POTASSIUM SERUM 3.8 MEQ/L (3.5-5.1); SODIUM LEVEL 135 MEQ/L (136-145); TOTAL PROTEIN 7.5 GM/DL (6.4-8.2); TRIGLYCERIDES LEVEL 154 MG/DL (<150)
[2021-04-21 07:58] LABS: HEMOGLOBIN A1c 6.4 %
[2021-04-21 10:57] LABS: TOTAL 25(OH) VITAMIN D 17.5 NG/ML (30.0-100.0)
== END ==
LOC: M LAB 06:25
PROVIDERS: ATTEND Student in an Organized Health Care Education/Training Program
DX: E11.9 Type 2 diabetes mellitus without complications (principal); E78.5 Hyperlipidemia, unspecified; I10 Essential (primary) hypertension

== ENCOUNTER → 2021-06-07 | Outpatient (CLI) | payer BC ==
[~2021-06-07] MED LIST changes: +NOXI1TAB PO
== END ==
LOC: M WHC 14:28
PROVIDERS: ATTEND Advanced Practice Midwife
DX: Z12.31 Encounter for screening mammogram for malignant neoplasm of breast (principal)

== ENCOUNTER → 2021-06-07 | Outpatient (CLI) | payer BC | LOC: M WHC 08:00 | PROVIDERS: ATTEND Advanced Practice Midwife | DX: Z53.9 Procedure and treatment not carried out, unspecified reason (principal) ==

== ENCOUNTER → 2021-06-08 | Outpatient (REF) | payer BC | LOC: M PLALAB 13:10 | PROVIDERS: ATTEND Advanced Practice Midwife | DX: N90.89 Other specified noninflammatory disorders of vulva and perineum (principal) ==

== ENCOUNTER → 2021-08-18 | Outpatient (CLI) | payer BC ==
[2021-08-18 18:53] LABS: HEMOGLOBIN A1c 6.6 %
== END ==
LOC: M LAB 15:27
PROVIDERS: ATTEND Student in an Organized Health Care Education/Training Program
DX: E78.5 Hyperlipidemia, unspecified (principal); I10 Essential (primary) hypertension; E11.9 Type 2 diabetes mellitus without complications

== ENCOUNTER → 2021-10-06 | Outpatient (CLI) | payer BC ==
[2021-10-06 08:30] LABS: BASO # 0.1 10^3/uL (0.0-0.2); BASO % 0.5 % (0.0-1.0); EOS # 0.4 10^3/uL (0.0-0.5); EOS % 2.4 % (0.0-3.0); HEMATOCRIT 41.2 % (36.0-47.0); HEMOGLOBIN 13.6 g/dl (12.0-15.5); LYMPH # 4.7 10^3/uL (1.5-5.0); LYMPH % 31.2 % (24.0-44.0); MEAN CORPUSCULAR HEMOGLOBIN 30.8 pg (27.0-33.0); MEAN CORPUSCULAR VOLUME 93.4 fl (80.0-96.0); MONO % 6.5 % (2.0-8.0); NEUTROPHILS # 8.9 10^3/uL (1.5-8.5); NEUTROPHILS % 58.8 % (36.0-66.0); PLATELET COUNT, AUTOMATED 392 10^3/uL (150-450); RED BLOOD COUNT 4.41 10^6/uL (4.00-5.40); WHITE BLOOD COUNT 15.2 10^3/uL (4.0-10.0)
[2021-10-06 09:00] LABS: ALBUMIN 3.8 GM/DL (3.2-5.2); ALT/SGPT 41 U/L (12-78); BILIRUBIN,TOTAL 0.2 MG/DL (0.2-1.0); BLOOD UREA NITROGEN 19 MG/DL (7-18); CALCIUM LEVEL 9.5 MG/DL (8.5-10.1); CARBON DIOXIDE LEVEL 32 MEQ/L (21-32); CHLORIDE LEVEL 102 MEQ/L (98-107); CREATININE FOR GFR 0.77 MG/DL (0.55-1.30); GLOMERULAR FILTRATION RATE > 60.0 (>51); GLUCOSE, FASTING 127 MG/DL (70-100); POTASSIUM SERUM 3.7 MEQ/L (3.5-5.1); SODIUM LEVEL 139 MEQ/L (136-145); TOTAL PROTEIN 7.3 GM/DL (6.4-8.2)
== END ==
LOC: M LAB 06:47
PROVIDERS: ATTEND Specialist
DX: C18.9 Malignant neoplasm of colon, unspecified (principal)

== ENCOUNTER → 2021-10-13 | Outpatient (CLI) | payer BC ==
[~2021-10-13] MED LIST changes: +GASTROGRAFIN SOLUTION 30ML (Q9963) As Ordered ONE; +ISOVUE-370 76% 100ML VIAL As Ordered ONE
== END ==
LOC: M RAD 12:53
PROVIDERS: ATTEND Specialist
DX: C18.9 Malignant neoplasm of colon, unspecified (principal); K42.9 Umbilical hernia without obstruction or gangrene
CPT/HCPCS: 71260; 74177; Q9963; Q9967

== ENCOUNTER → 2021-12-25 | Outpatient (CLI) | payer BC ==
[~2021-12-25] MED LIST changes: +BISO10TA14 PO; -GASTROGRAFIN SOLUTION 30ML (Q9963) As Ordered ONE; -ISOVUE-370 76% 100ML VIAL As Ordered ONE; +METF-838
[2021-12-25 07:29] LABS: HEMOGLOBIN A1c 6.5 %
== END ==
LOC: M LAB 06:13
PROVIDERS: ATTEND Student in an Organized Health Care Education/Training Program
DX: E03.9 Hypothyroidism, unspecified (principal)

== ENCOUNTER → 2022-03-25 | Outpatient (CLI) | payer BC | LOC: M LABSMTC 11:27 | PROVIDERS: ATTEND Anesthesiology | DX: Z01.812 Encounter for preprocedural laboratory examination (principal); Z20.822 Contact with and (suspected) exposure to COVID-19 ==

== ENCOUNTER 2022-03-29 07:06 | Day surgery (SDC) | payer BC ==
[~2022-03-29] VITALS: Ht 160 cm; Wt 87.1 kg
[~2022-03-29 07:06] MED LIST changes: +NS 1,000 ML IV ONE
[2022-03-29] MEDS ORDERED: SODIUM CHLORIDE 0.9% INJ 10 ML SYR IV PRN (07:40)
[2022-03-29] MEDS ORDERED: LIDOCAINE 2% 100MG/5ML SDV (FOR ANES.) As Ordered ONE (07:53)
[2022-03-29] MEDS ORDERED: propofoL 200 MG/20 ML VIAL As Ordered ONE ×2 (07:53→07:56)
[2022-03-29 08:30] VITALS: BP 155/73
== END 2022-03-29 08:40 | disposition home or self-care (01) ==
LOC: M OPP 07:06
PROVIDERS: ATTEND Surgery
DX: Z85.038 Personal history of other malignant neoplasm of large intestine (principal); K63.5 Polyp of colon; K57.30 Diverticulosis of large intestine without perforation or abscess without bleeding; I10 Essential (primary) hypertension; E78.5 Hyperlipidemia, unspecified; E11.9 Type 2 diabetes mellitus without complications; E03.9 Hypothyroidism, unspecified; G47.33 Obstructive sleep apnea (adult) (pediatric); I48.91 Unspecified atrial fibrillation; Z79.82 Long term (current) use of aspirin; Z79.84 Long term (current) use of oral hypoglycemic drugs; Z79.890 Hormone replacement therapy; Z79.899 Other long term (current) drug therapy

== ENCOUNTER → 2022-04-09 | Outpatient (CLI) | payer BC ==
[~2022-04-09] MED LIST changes: -NS 1,000 ML IV ONE
== END ==
LOC: M WHC 09:04
PROVIDERS: ATTEND Specialist
DX: N28.1 Cyst of kidney, acquired (principal); K76.0 Fatty (change of) liver, not elsewhere classified

== ENCOUNTER → 2022-07-04 | Outpatient (CLI) | payer BC | LOC: M WHC 13:13 | PROVIDERS: ATTEND Advanced Practice Midwife | DX: Z12.31 Encounter for screening mammogram for malignant neoplasm of breast (principal) ==

== ENCOUNTER → 2022-11-20 | Outpatient (CLI) | payer BC ==
[~2022-11-20] MED LIST changes: +GASTROGRAFIN SOLUTION 30ML As Ordered ONE; +ISOVUE-370 76% 100ML VIAL As Ordered ONE; -ROSU20TA5 PO; +ROSU20TA61 PO
== END ==
LOC: M RAD 14:38
PROVIDERS: ATTEND Specialist
DX: C18.9 Malignant neoplasm of colon, unspecified (principal)
CPT/HCPCS: 71046; 74177; Q9963; Q9967

== ENCOUNTER → 2023-05-30 | Outpatient (REF) | payer BC ==
[~2023-05-30] MED LIST changes: -ASPI-161 PO; +ASPI-615 PO; -GASTROGRAFIN SOLUTION 30ML As Ordered ONE; -ISOVUE-370 76% 100ML VIAL As Ordered ONE; -MIRA1POW3 PO; +MIRA33506 PO; +OMEG350C PO; +THERTAB21 PO
[2023-05-31 11:58] LABS: APPEARANCE, URINE CLOUDY (CLEAR); BACTERIA, URINE AUTO NEGATIVE (NEGATIVE); BILIRUBIN, URINE AUTO NEGATIVE (NEGATIVE); BLOOD, URINE BLOOD 1+ (NEGATIVE); COLOR, URINE YELLOW (YELLOW); GLUCOSE, URINE (UA) AUTO NEGATIVE (NEGATIVE); KETONE, URINE AUTO NEGATIVE (NEGATIVE); LEUKOCYTE ESTERASE, URINE AUTO NEGATIVE (NEGATIVE); MUCUS, URINE SMALL (NEGATIVE); NITRITE, URINE AUTO NEGATIVE (NEGATIVE); PROTEIN, URINE AUTO NEGATIVE (NEGATIVE); RBC, URINE AUTO 4 /HPF (0-3); SPECIFIC GRAVITY URINE AUTO 1.015 (1.002-1.035); SQUAMOUS EPITHELIAL CELL UR AU 26 /HPF (0-6); UROBILINOGEN, URINE AUTO 0.2 mg/dL (0.0-2.0); WBC, URINE AUTO 2 /HPF (0-3)
== END ==
LOC: M SMT 10:11
PROVIDERS: ATTEND Nurse Practitioner Family
DX: N39.0 Urinary tract infection, site not specified (principal)

== ENCOUNTER → 2023-06-03 | Outpatient (CLI) | payer BC ==
[2023-06-04 10:36] LABS: APPEARANCE, URINE CLEAR (CLEAR); BACTERIA, URINE AUTO NEGATIVE (NEGATIVE); BILIRUBIN, URINE AUTO NEGATIVE (NEGATIVE); BLOOD, URINE BLOOD NEGATIVE (NEGATIVE); COLOR, URINE STRAW (YELLOW); GLUCOSE, URINE (UA) AUTO NEGATIVE (NEGATIVE); KETONE, URINE AUTO NEGATIVE (NEGATIVE); LEUKOCYTE ESTERASE, URINE AUTO NEGATIVE (NEGATIVE); NITRITE, URINE AUTO NEGATIVE (NEGATIVE); PROTEIN, URINE AUTO NEGATIVE (NEGATIVE); RBC, URINE AUTO 1 /HPF (0-3); SPECIFIC GRAVITY URINE AUTO 1.014 (1.002-1.035); SQUAMOUS EPITHELIAL CELL UR AU 1 /HPF (0-6); UROBILINOGEN, URINE AUTO 0.2 mg/dL (0.0-2.0); WBC, URINE AUTO 0 /HPF (0-3)
== END ==
LOC: M LAB 14:51
PROVIDERS: ATTEND Nurse Practitioner Family
DX: N39.0 Urinary tract infection, site not specified (principal)

== ENCOUNTER 2023-06-27 08:15 | Day surgery (SDC) | payer BC ==
[~2023-06-27] VITALS: Ht 160 cm; Wt 90.3 kg
[~2023-06-27 08:15] MED LIST changes: +IBUP1TAB6 PO; +VITA100093 PO; +VITA1CAP4 PO
[2023-06-27] MEDS: NS 1,000 ML IV ONE (08:45)
[2023-06-27] MEDS ORDERED: LIDOCAINE 2% 100MG/5ML SDV (FOR ANES.) As Ordered ONE (08:51)
[2023-06-27] MEDS ORDERED: propofoL 200 MG/20 ML VIAL As Ordered ONE (08:51)
[2023-06-27] MEDS ORDERED: SODIUM CHLORIDE 0.9% INJ 10 ML SYR IV PRN (09:10)
[2023-06-27 11:18] VITALS: BP 137/66; TEMP 96.3; O2SAT 96
== END 2023-06-27 11:15 | disposition home or self-care (01) ==
LOC: M OPP 08:15
PROVIDERS: ATTEND Surgery
DX: Z85.038 Personal history of other malignant neoplasm of large intestine (principal); Z08 Encounter for follow-up examination after completed treatment for malignant neoplasm; Z86.010 Personal history of colon polyps; D12.6 Benign neoplasm of colon, unspecified; K57.30 Diverticulosis of large intestine without perforation or abscess without bleeding; Z99.89 Dependence on other enabling machines and devices; I48.91 Unspecified atrial fibrillation; Z79.02 Long term (current) use of antithrombotics/antiplatelets; Z79.1 Long term (current) use of non-steroidal anti-inflammatories (NSAID); Z79.82 Long term (current) use of aspirin; Z79.899 Other long term (current) drug therapy

== ENCOUNTER → 2023-07-16 | Outpatient (CLI) | payer BC ==
[2023-07-16 07:18] LABS: BASO # 0.1 10^3/uL (0.0-0.2); BASO % 0.7 % (0.0-1.0); EOS # 0.2 10^3/uL (0.0-0.5); EOS % 1.6 % (0.0-3.0); HEMATOCRIT 39.1 % (36.0-47.0); HEMOGLOBIN 13.4 g/dl (12.0-15.5); HEMOGLOBIN A1c 5.7 % (4.0-6.0); LYMPH # 4.6 10^3/uL (1.5-5.0); LYMPH % 34.4 % (24.0-44.0); MEAN CORPUSCULAR HEMOGLOBIN 31.3 pg (27.0-33.0); MEAN CORPUSCULAR HGB CONC 34.3 g/dl (32.0-36.5); MEAN CORPUSCULAR VOLUME 91.4 fl (80.0-96.0); MONO # 0.8 10^3/uL (0.0-0.8); MONO % 6.1 % (2.0-8.0); NEUTROPHILS # 7.7 10^3/uL (1.5-8.5); NEUTROPHILS % 56.9 % (36.0-66.0); PLATELET COUNT, AUTOMATED 374 10^3/uL (150-450); RED BLOOD COUNT 4.28 10^6/uL (4.00-5.40); WHITE BLOOD COUNT 13.5 10^3/uL (4.0-10.0)
[2023-07-16 07:31] LABS: ALBUMIN 3.9 G/DL (3.2-5.2); ALKALINE PHOSPHATASE 81 U/L (46-116); ALT/SGPT 45 U/L (7.0-40); AST/SGOT 23 U/L (<34); BILIRUBIN,TOTAL 0.4 MG/DL (0.3-1.2); BLOOD UREA NITROGEN 18 MG/DL (9-23); CALCIUM LEVEL 9.8 MG/DL (8.5-10.1); CARBON DIOXIDE LEVEL 26 MMOL/L (20-31); CHLORIDE LEVEL 101 MMOL/L (98-107); CHOLESTEROL LEVEL 146 MG/DL (<200); CHOLESTEROL RISK RATIO 3.53 (<5); CREATININE FOR GFR 0.67 MG/DL (0.55-1.30); GLOMERULAR FILTRATION RATE > 60.0 (>51); GLUCOSE, FASTING 101 MG/DL (60-100); HDL CHOLESTEROL 41.3 MG/DL (>40); LDL CHOLESTEROL 66.9 MG/DL (<100); NON-HDL-C 104.7 MG/DL; POTASSIUM SERUM 4.1 MMOL/L (3.5-5.1); SODIUM LEVEL 136 MMOL/L (136-145); TOTAL PROTEIN 6.9 G/DL (5.7-8.2); TRIGLYCERIDES LEVEL 189 MG/DL (<150)
== END ==
LOC: M LAB 07-15 21:52
PROVIDERS: ATTEND Student in an Organized Health Care Education/Training Program
DX: E11.9 Type 2 diabetes mellitus without complications (principal); E03.9 Hypothyroidism, unspecified

== ENCOUNTER → 2023-08-16 | Outpatient (CLI) | payer BC | LOC: M WHC 13:52 | PROVIDERS: ATTEND Advanced Practice Midwife | DX: Z12.31 Encounter for screening mammogram for malignant neoplasm of breast (principal) ==

== ENCOUNTER → 2023-08-16 | Outpatient (REF) | payer BC ==
[2023-08-20 15:09] LABS: HPV APTIMA Negative (Negative)
== END ==
LOC: M PLALAB 15:07
PROVIDERS: ATTEND Advanced Practice Midwife
DX: Z01.419 Encounter for gynecological examination (general) (routine) without abnormal findings (principal); Z12.4 Encounter for screening for malignant neoplasm of cervix; Z11.51 Encounter for screening for human papillomavirus (HPV)

== ENCOUNTER → 2023-10-18 | Outpatient (CLI) | payer BC ==
[2023-10-18 07:40] LABS: DIGOXIN LEVEL 1.1 NG/ML (0.8-2.0)
[2023-10-18 08:04] LABS: THYROID STIMULATING HORMONE 3.398 uIU/ML (0.55-4.78)
== END ==
LOC: M LAB 06:30
PROVIDERS: ATTEND Student in an Organized Health Care Education/Training Program
DX: E03.9 Hypothyroidism, unspecified (principal)

== ENCOUNTER → 2023-10-21 | Outpatient (CLI) | payer BC ==
[~2023-10-21] MED LIST changes: +GASTROGRAFIN SOLUTION 30ML As Ordered ONE; +ISOVUE-370 76% 100ML VIAL As Ordered ONE
== END ==
LOC: M RAD 11:53
PROVIDERS: ATTEND Nurse Practitioner
DX: C18.9 Malignant neoplasm of colon, unspecified (principal); K76.0 Fatty (change of) liver, not elsewhere classified; K86.2 Cyst of pancreas; R16.0 Hepatomegaly, not elsewhere classified; Z90.49 Acquired absence of other specified parts of digestive tract
CPT/HCPCS: 74177; Q9963; Q9967

== ENCOUNTER → 2024-05-28 | Outpatient (REF) ==
[~2024-05-28] MED LIST changes: -GASTROGRAFIN SOLUTION 30ML As Ordered ONE; -ISOVUE-370 76% 100ML VIAL As Ordered ONE; -ROSU20TA61 PO; +ROSU20TA86 PO
== END ==
LOC: M EMP 09:51
PROVIDERS: ATTEND Family Medicine
DX: Z11.52 Encounter for screening for COVID-19 (principal)

== ENCOUNTER → 2024-06-17 | Outpatient (CLI) | payer BC ==
[2024-06-17 06:40] LABS: BASO # 0.1 10^3/uL (0.0-0.2); BASO % 0.6 % (0.0-1.0); EOS # 0.3 10^3/uL (0.0-0.5); EOS % 1.8 % (0.0-3.0); HEMOGLOBIN 13.8 g/dl (12.0-15.5); LYMPH # 4.9 10^3/uL (1.5-5.0); LYMPH % 35.2 % (24.0-44.0); MEAN CORPUSCULAR HEMOGLOBIN 31.9 pg (27.0-33.0); MEAN CORPUSCULAR HGB CONC 34.5 g/dl (32.0-36.5); MEAN CORPUSCULAR VOLUME 92.6 fl (80.0-96.0); MONO # 1.1 10^3/uL (0.0-0.8); MONO % 8.1 % (2.0-8.0); NEUTROPHILS # 7.6 10^3/uL (1.5-8.5); PLATELET COUNT, AUTOMATED 435 10^3/uL (150-450); RED BLOOD COUNT 4.32 10^6/uL (4.00-5.40)
[2024-06-17 07:09] LABS: ALBUMIN 3.9 G/DL (3.2-5.2); ALKALINE PHOSPHATASE 75 U/L (35-104); ALT/SGPT 52 U/L (7.0-40); AST/SGOT 25 U/L (<34); BILIRUBIN,TOTAL 0.3 MG/DL (0.3-1.2); BLOOD UREA NITROGEN 18 MG/DL (9-23); CALCIUM LEVEL 9.2 MG/DL (8.5-10.1); CARBON DIOXIDE LEVEL 32 MMOL/L (20-31); CHLORIDE LEVEL 97 MMOL/L (98-107); CREATININE FOR GFR 0.71 MG/DL (0.55-1.30); GLOMERULAR FILTRATION RATE > 60.0 (>51); GLUCOSE, FASTING 126 MG/DL (60-100); POTASSIUM SERUM 3.5 MMOL/L (3.5-5.1); SODIUM LEVEL 137 MMOL/L (136-145); TOTAL PROTEIN 7.3 G/DL (5.7-8.2)
[2024-06-17 07:12] LABS: CARCINOEMBRYONIC ANTIGEN < 2.0 NG/ML (<2.5)
[2024-06-17 07:26] LABS: CA19-9 TUMOR MARKER,CARBOHYDRA 15.4 U/ML (<35.0)
== END ==
LOC: M LAB 03:45
PROVIDERS: ATTEND Specialist
DX: C18.9 Malignant neoplasm of colon, unspecified (principal)

== ENCOUNTER → 2024-07-10 | Outpatient (CLI) | payer BC ==
[2024-07-10 07:37] LABS: CHOLESTEROL RISK RATIO 4.54 (<5); HDL CHOLESTEROL 29.9 MG/DL (>40); LDL CHOLESTEROL 52.5 MG/DL (<100); NON-HDL-C 106.1 MG/DL
[2024-07-10 07:41] LABS: THYROID STIMULATING HORMONE 3.287 uIU/ML (0.55-4.78)
[2024-07-10 07:57] LABS: HEMOGLOBIN A1c 6.8 % (4.0-6.0)
== END ==
LOC: M LAB 06:02
PROVIDERS: ATTEND Student in an Organized Health Care Education/Training Program
DX: E03.9 Hypothyroidism, unspecified (principal)

== ENCOUNTER → 2024-11-27 | Outpatient (CLI) | payer BC ==
[~2024-11-27] MED LIST changes: -IBUP1TAB6 PO; +SFHIBU600 PO
== END ==
LOC: M WHC 12:53
PROVIDERS: ATTEND Advanced Practice Midwife
DX: Z13.820 Encounter for screening for osteoporosis (principal)

== ENCOUNTER → 2024-11-30 | Outpatient (CLI) | payer BC ==
[~2024-11-30] MED LIST changes: +ISOVUE-370 76% 100 ML VIAL As Ordered ONE
== END ==
LOC: M RAD 15:59
PROVIDERS: ATTEND Nurse Practitioner Women's Health
DX: C18.9 Malignant neoplasm of colon, unspecified (principal); K43.9 Ventral hernia without obstruction or gangrene; R93.3 Abnormal findings on diagnostic imaging of other parts of digestive tract; R16.0 Hepatomegaly, not elsewhere classified; K76.0 Fatty (change of) liver, not elsewhere classified; R91.1 Solitary pulmonary nodule
CPT/HCPCS: 71260; 74177; Q9967

== ENCOUNTER → 2024-12-21 | Outpatient (CLI) | payer BC ==
[~2024-12-21] MED LIST changes: -ISOVUE-370 76% 100 ML VIAL As Ordered ONE
[2024-12-21 07:40] LABS: BASO # 0.1 10^3/uL (0.0-0.2); BASO % 0.4 % (0.0-1.0); EOS # 0.2 10^3/uL (0.0-0.5); EOS % 1.7 % (0.0-3.0); LYMPH # 4.8 10^3/uL (1.5-5.0); LYMPH % 37.8 % (24.0-44.0); MONO # 0.8 10^3/uL (0.0-0.8); MONO % 6.2 % (2.0-8.0); NEUTROPHILS # 6.8 10^3/uL (1.5-8.5); NEUTROPHILS % 53.4 % (36.0-66.0); PLATELET COUNT, AUTOMATED 405 10^3/uL (150-450)
[2024-12-21 08:06] LABS: ALT/SGPT 48 U/L (7.0-40); AST/SGOT 27 U/L (<34); CALCIUM LEVEL 9.3 MG/DL (8.5-10.1); CARBON DIOXIDE LEVEL 31 MMOL/L (20-31); CHLORIDE LEVEL 97 MMOL/L (98-107); CREATININE FOR GFR 0.63 MG/DL (0.55-1.30); GLOMERULAR FILTRATION RATE > 90.0 (>51); POTASSIUM SERUM 3.8 MMOL/L (3.5-5.1); SODIUM LEVEL 138 MMOL/L (136-145)
[2024-12-21 08:22] LABS: CA19-9 TUMOR MARKER,CARBOHYDRA 9.0 U/ML (<35.0)
== END ==
LOC: M LAB 06:06
PROVIDERS: ATTEND Nurse Practitioner Women's Health
DX: C18.9 Malignant neoplasm of colon, unspecified (principal)